=== PATIENT | female | born 1985 | race Caucasian/White ===

== ENCOUNTER → 2017-08-24 18:41 | Outpatient (CLI) | payer OTHER, MEDICAID, SELFPAY ==
--- NOTE | 2017-08-24 | DI.MRI.S_ITS ---
PROCEDURE: MR KNEE LT WO CON INDICATIONS: INTERNAL DERANGEMENT OF LEFT KNEE TECHNIQUE: Noncontrast sagittal PD fast spin echo and T2 fast spin echo with fat saturation, sagittal 3-D FLASH with fat saturation; coronal T1 spin echo and PD fast spin echo with fat saturation, and axial PD fast spin echo with fat saturation through the knee. COMPARISON: None. FINDINGS: Image quality: Excellent. Menisci: The medial and lateral menisci demonstrate normal morphology and internal signal. The meniscal root ligaments appear intact. Cruciate ligaments: The anterior and posterior cruciate ligaments appear intact. Medial structures: The medial collateral ligament appears intact but demonstrates mild edema within and immediately adjacent, extending into the medial patellar retinaculum. The posterior oblique ligament, semimembranosus tendon insertions, oblique popliteal ligament, and meniscocapsular junction appear intact. Visualized portions of the pes anserinus tendons appear normal. No abnormal bursal fluid. Lateral structures: The lateral collateral ligament, long and short heads of the biceps femoris tendon appear intact. The popliteus tendon appears normal; the popliteofibular ligament appears intact. The posterosuperior and anteroinferior popliteomeniscal fascicles appear intact. The arcuate and fabellofibular ligaments appear intact, on either side of the lateral inferior geniculate artery. Iliotibial band appears normal. Anterior structures: The quadriceps and patellar tendons appear intact. Patellar alignment is normal. No femoral trochlear dysplasia or ventral trochlear prominence. No edema in the infrapatellar fat pad. Bones and cartilage: No bone marrow contusions or fractures. The cartilage of the medial and lateral femorotibial compartments, as well as the patellofemoral compartment, appears normal in thickness. Joint space: There is physiologic knee joint fluid. No Solano's cyst. Normal appearing synovial plicae are incidentally noted. IMPRESSION: No meniscal tear is found, no bone bruising, no internal ligamentous injury is seen. There is mild edema within and immediately adjacent to the medial collateral ligament and extending to a mild degree into the immediate adjacent medial patellar retinaculum. Disruption of the structures is not found. No joint effusion or intra-articular loose body. Dictated by: Sachin Lo M.D. on 08/27/2017 at 10:49 Approved by: Sachin Lo M.D. on 08/27/2017 at 10:51
== END ==
PROVIDERS: PCP Physician Assistant Medical; Visit Provider Orthopaedic Surgery
DX: M23.92 Unspecified internal derangement of left knee (principal)
CPT/HCPCS: 73721

== ENCOUNTER 2017-11-20 08:17 | Outpatient (CLI) | payer OTHER, MEDICAID, SELFPAY ==
[2017-11-20] VITALS (11 sets, daily range): BP systolic 95–123; BP diastolic 54–78; PULSE 46–86; RESP 16–20; TEMP 36.7; O2SAT 96–100
--- NOTE | 2017-11-20 08:19 | DI.RAD.S_ITS ---
PROCEDURE: PAIN L/S TRANSFORAMINAL INJECT INDICATIONS: Spondylosis without myelopathy or radiculopathy FINDINGS: Fluoroscopic spot filming was performed to verify placement of spinal needles at the L5-S1 level(s), as labeled on the films. Appropriate location(s) of the needle tip(s) was confirmed by injection of iodinated contrast. IMPRESSION: Successful L5-S1 localization. Dictated by: Sachin Lo M.D. on 11/20/2017 at 13:16 Approved by: Sachin Lo M.D. on 11/20/2017 at 13:18
[2017-11-20] MEDS: MIDAZOLAM 5 MG/5 ML VIAL IV (09:10)
[2017-11-20] MEDS: BUPIVACAINE 0.25% (PF) VIAL 2 ML INJ (09:16)
[2017-11-20] MEDS: IOPAMIDOL 15 ML VIAL 3 ML INJ (09:16)
[2017-11-20] MEDS: methylPREDNISolone acetate 80 MG/ML VIAL INJ (09:17)
[2017-11-20] MEDS: DEXAMETHASONE 10 MG/ML VIAL 20 MG INJ (09:17)
--- NOTE | 2017-11-20 09:20 | P.PCN_ITS ---
Procedures Date/Time Date of procedure: 11/20/17 Time of procedure: 09:07 General Procedure description: PROVIDER: Otto Valle DO Operative Note PREOP DIAGNOSIS 1. HNP WITH RADICULAR FEATURES, 2. MULTILEVEL CENTRAL STENOSIS, POST OP DIAGNOSIS 1. HNP WITH RADICULAR FEATURES, 2. MULTILEVEL CENTRAL STENOSIS, PROCEDURES 1. FLUORSCOPICALLY GUIDED CONTRAST CONTROLLED INTERLAMINAR EPIDURAL STEROID INJECTION - L5/S1 PHYSICIAN: Otto Valle DO INDICATIONS Sosa is referred by DANY Marcano for treatment of Bilateral Foraminal Stenosis L>R LE symptoms. FINDINGS Multilevel Central Spinal Stenosis with Nerve Root Compression DESCRIPTION OF PROCEDURE Fluoroscopically guided, contrast-controlled L5/S1 translaminar epidural steroid injection. Following denial of allergy and review of potential side effects and complications, including, but not necessarily limited to, infection, allergic reaction, local tissue breakdown, temporary as well as permanent nerve injury, paralysis, stroke and possible , the patient indicated that the patient understood and agreed to proceed. An informed consent document was signed by the patient, witnessed by a nurse, and placed in the patient's chart. Additionally, other treatment options including modalities, medications, and physical therapy were reviewed with the patient. After review of previous anaesthesic history and IV conscious sedation the patient was deemed safe to proceed with todays procedure with IV conscious sedation as ASA class II designation. Safety time-out was performed to confirm patient ID, procedure to be performed and site of procedure. IV sedation was accomplished with a combination of 4mg of Versed administered by the RN after DO order, titrated to patient comfort during the course of the procedure while the patient remained responsive to all verbal commands. In the prone position, following sterile prep and drape of the lumbar region, the L5/S1 translaminar space was identified fluoroscopically. The skin was anesthetized via a 25-gauge, 1.5-inch needle with 1% lidocaine solution. At this point, a 22-gauge short bevel spinal needle was atraumatically introduced and advanced under fluoroscopic guidance into the region of the L5/S1 translaminar space. Depth was confirmed on lateral view. Radiological data, including multiple fluoroscopic views of the lumbar spine, reveal a spinal needle at the L5/S1 translaminar space. Lateral views then show placement of the needle in the epidural space. Subsequent views show contrast material flowing superiorly and inferiorly in the epidural space. No vascular or intrathecal uptake is observed. At this point, using loss of resistance technique with saline and air, the epidural space was entered. This was confirmed following negative aspiration with injection of approximately 1.5 cc of Isovue 200, showing excellent epidural flow without vascular or intrathecal uptake. At this point, 1 cc of 1 % lidocaine solution combined with 3 cc or 20 mg of dexamethasone and 80mg Depo medrol was injected without incident. The patent tolerated the procedure without signs of symptoms of complications prior to transfer to the recovery area for further monitoring. The patient was then transferred to the recovery area where they were observed for an appropriate period of time after the injection. The patient reported a VAS score of 6 prior to the procedure and a post-procedure VAS of 0. Total Fluoroscopy Time: 11.8 seconds Total Conscious Sedation Time: 24min POST OP INSTRUCTIONS The patient was provided a Pain Log to continue to record their response to the target-specific procedure prior to follow-up visit with their referring physician. Additionally, specific post-injection care instructions and a contact number to our office were provided if concerns arise regarding possible complications associated with the procedure are suspected. Otto Valle DO
--- NOTE | 2017-11-21 14:15 | PC.NURSE ---
FOLLOW UP PHONE CALL MADE. LEFT MSG WITH OFFICE # FOR QUESTIONS OR CONCERNS.
== END 2017-11-20 09:52 ==
PROVIDERS: PCP Physician Assistant Medical; Visit Provider Physical Medicine & Rehabilitation
DX: M51.17 Intervertebral disc disorders with radiculopathy, lumbosacral region (principal); M48.07 Spinal stenosis, lumbosacral region; M43.16 Spondylolisthesis, lumbar region
CPT/HCPCS: 64483; 99152; J1040; J1100; J2250

== ENCOUNTER 2017-11-21 15:20 | Emergency (ER) | payer OTHER, MEDICAID, SELFPAY ==
[2017-11-21 15:26] VITALS: BP 123/80; PULSE 65; RESP 20; TEMP 37.4; O2SAT 100; BMI 20.3
--- NOTE | 2017-11-21 17:45 | PC.NURSE ---
called pts name in waiting room pt no longer in waiting room. provider and electrical discharge machine operator aware.
== END 2017-11-21 18:33 | disposition left against medical advice (07) ==
PROVIDERS: Emergency Provider Emergency Medicine; PCP Physician Assistant Medical
DX: R10.9 Unspecified abdominal pain (principal)
CPT/HCPCS: 99281; 99282

== ENCOUNTER 2018-01-16 09:25 | Emergency (ER) | payer OTHER, MEDICAID, SELFPAY ==
[2018-01-16 09:57] VITALS: BP 131/87; PULSE 65; RESP 16; TEMP 37.1; O2SAT 97; BMI 20.5
== END 2018-01-16 10:49 | disposition left against medical advice (07) ==
PROVIDERS: PCP Physician Assistant Medical
DX: R10.9 Unspecified abdominal pain (principal)
CPT/HCPCS: 99281; 99282

== ENCOUNTER 2018-01-30 09:01 | Outpatient (CLI) | payer OTHER, MEDICAID, SELFPAY ==
[2018-01-30] VITALS (8 sets, daily range): BP systolic 96–117; BP diastolic 62–80; PULSE 67–81; RESP 16–18; O2SAT 96–100
--- NOTE | 2018-01-30 09:04 | DI.RAD.S_ITS ---
PROCEDURE: PAIN L/SI FACET INJ/BLK 1STL INDICATIONS: Lumbosacral spondylosis FINDINGS: Fluoroscopic spot filming was performed to verify placement of spinal needles at the L4-5 and L5-S1 right-sided facet region level(s), as labeled on the films. Appropriate location(s) of the needle tip(s) was confirmed by injection of iodinated contrast. IMPRESSION: Successful right facet margin needle tip localization or epidural steroid injection, L4-5 and L5-S1. Dictated by: Sachin Lo M.D. on 01/30/2018 at 13:02 Approved by: Sachin Lo M.D. on 01/30/2018 at 13:03
[2018-01-30] MEDS: MIDAZOLAM 5 MG/5 ML VIAL IV (09:55)
[2018-01-30] MEDS: IOPAMIDOL 15 ML VIAL 3 ML INJ (10:03)
[2018-01-30] MEDS: BUPIVACAINE 0.5% (PF) VIAL 2 ML INJ (10:04)
[2018-01-30] MEDS: BETAMETHASONE 30 MG/5 ML MDV 12 MG INJ (10:04)
--- NOTE | 2018-01-30 10:10 | PC.NURSE ---
pt being transported to post proc room in stable condition
--- NOTE | 2018-01-30 10:13 | P.PCN_ITS ---
Procedures Date/Time Date of procedure: 01/30/18 Time of procedure: 10:10 General Procedure description: PREOP DIAGNOSIS 1. FACET ARTHROPATHY, 2. AXIAL LBP, 3. MULTILEVEL DDD, POST OP DIAGNOSIS 1. FACET ARTHROPATHY, 2. AXIAL LBP, 3. MULTILEVEL DDD, PROCEDURES 1. FLUORSCOPICALLY GUIDED CONTRAST CONTROLLED FACET JOINT INJECTIONS RIGHT L4/5 , L5/S1 SURGEON: Otto Valle, DO INDICATIONS Sosa is referred by Dr. Marcano for treatment of Axial LBP FINDINGS Multilevel Facet Arthropathy with Clinically significant axial LBP DESCRIPTION OF PROCEDURE Fluoroscopically guided, contrast-controlled right L4/5, L5/S1 facet joint injections. Following denial of allergy and review of potential side effects and complications, including, but not necessarily limited to, infection, allergic reaction, local tissue breakdown, stroke, temporary or permanent nerve injury, paralysis, and possible , the patient indicated that the patient understood and agreed to proceed. An informed consent document was signed by the patient, witnessed by a nurse, and placed in the patient's chart. Additionally, other treatment options including medications, modalities, and physical therapy were reviewed with the patient. After review of previous anaesthesic history and IV conscious sedation the patient was deemed safe to proceed with todays procedure with IV conscious sedation as ASA class II designation. Safety time-out was performed to confirm patient ID, procedure to be performed and site of procedure. IV sedation was accomplished with a combination of 4mg was administered by the RN after DO order , titrated to patient comfort during the course of the procedure while the patient remained responsive to all verbal commands. In the prone position, following sterile prep and drape of the lumbar region, the posterior aspect of the right L4/5, L5/S1 facet joints were identified fluoroscopically. The skin was anesthetized via a 25-gauge 1.5-inch needle with 1% lidocaine solution into the corresponding facet joints. At this point, a 22-gauge 3.5-inch spinal needle was atraumatically introduced and advanced under fluoroscopic guidance into the corresponding facet joints. Following negative aspiration, injections of approximately 0.2-cc of Isovue 200 confirmed interarticular placement without vascular uptake. Radiological data, including multiple fluoroscopic views of the lumbosacral spine, reveal a spinal needle at the right L4/5, L5/S1 facet joints. Subsequent views show flow of contrast material both superiorly and inferiorly within the joint space without vascular or intrathecal uptake. At this point, a total of 0.5 cc including a mixture of 0.25cc Marcaine and 0.25cc betamethasone was injected without complication into each of the corresponding facet joints. The procedure tolerated the procedure well without signs or symptoms of complications prior to transfer to the recovery area continued monitoring without incident. The patient was then transferred to the recovery area where they were observed for an appropriate period of time after the injection. The patient reported a VAS score of 7 prior to the procedure and a post-procedure VAS of 0. Total Fluoroscopy Time: 12.7 seconds Total Conscious Sedation Time: 24min POST OP INSTRUCTIONS The patient was provided a Pain Log to continue to record their response to the target-specific procedure prior to follow-up visit with their referring physician. Additionally, specific post-injection care instructions and a contact number to our office were provided if concerns arise regarding possible complications associated with the procedure are suspected. Otto Valle, Complications: none
--- NOTE | 2018-01-30 11:02 | PC.NURSE ---
received pt from Annamarie Barnes via wheelchair. pt alert and able to move from w/c to chair. pt stable. resumed monitoring.
== END 2018-01-30 10:35 ==
LOC: RAD 09:03
PROVIDERS: PCP Physician Assistant Medical; Visit Provider Physical Medicine & Rehabilitation
DX: M47.26 Other spondylosis with radiculopathy, lumbar region (principal); M47.27 Other spondylosis with radiculopathy, lumbosacral region; M43.16 Spondylolisthesis, lumbar region; M43.17 Spondylolisthesis, lumbosacral region; M51.16 Intervertebral disc disorders with radiculopathy, lumbar region; M48.061 Spinal stenosis, lumbar region without neurogenic claudication; M54.5 Low back pain
CPT/HCPCS: 64493; 64494; 99152; J0702; J2250

== ENCOUNTER 2018-05-17 06:54 | Day surgery (SDC) | payer OTHER, MEDICAID, SELFPAY ==
[2018-05-17] VITALS (16 sets, daily range): BP systolic 99–146; BP diastolic 62–90; PULSE 65–103; RESP 12–24; TEMP 36.2–37.2; O2SAT 96–100; BMI 19.7
--- NOTE | 2018-05-17 | PATH_ITS ---
[facility] Accession Number: [id number] . 01 Material submitted: . PART A: UTERUS AND BILATERAL FALLOPIAN TUBES PART B: APPENDIX . 02 Diagnosis: A. Uterus And Bilateral Fallopian Tubes (Laparascopic Supracervical Hysterectomy With Bilateral Salpingectomy, morecellated specimen (Weight 39 Grams): Fragments of inactive endometrium and smooth muscle, please see comment. Uterine serosa with no significant histomorphologic abnormality. Fallopian tubes x2 with no significant histomorphologic abnormality. . B. Appendix, Laparscopic Appendectomy: Appendix with no diagnostic abnormality. BFI/05/23/2018 . 02 Comment: A. The fragments of smooth muscle in this hysterectomy specimen may represent myometrium or a leiomyoma. Clinical correlation is recommended. There is no evidence of atypia or malignancy. . 02 Electronically signed: . Mila Crain MD, Pathologist NPI- [id number] . 01 Gross description: . A. A.Received in formalin, labeled labeled uterus, bilateral fallopian tubes, is a morcellated uterus (39 g, 7.5 x 7.2 x 2.5 cm in aggregate) and two detached fimbriated fallopian tubes (tube #1-length-6.2 cm, diameter-0.4 cm; tube #2-length-7.2 cm, diameter-0.3 cm). The ovaries are absent. The tissue cannot be oriented, and the endometrium and myometrium cannot be grossly measured. The uterine parenchyma is casillas and unremarkable. The serosa is casillas, smooth, and shiny. The fallopian tubes have bryant-purple, smooth, shiny serosa and casillas unremarkable lumens. Section code: (A1-A4) uterine parenchyma, liability claims representative; (A5) fallopian tube #1, liability claims representative serial sections; (A6) fimbria #1, bivalved, entirely submitted; (A7) fallopian tube #2, liability claims representative serial sections; (A8) fimbria #2, bivalved, entirely submitted. B. Received in formalin, labeled appendix, is an intact appendix (length-5.1 cm, diameter-0.6 cm) with casillas-pink, smooth, shiny serosa, attached mesoappendix (up to 2.2 cm in depth), and a stapled resection margin. The lumen contains pale casillas, solid, soft material. The wall is up to 0.2 cm thick. No nodules, masses, or lesions are identified. The resection margin is inked black. Section code: (B1) resection margin en face and five additional serial sections; (B2) bivalved tip, entirely submitted. ([id number]) /FRR . 02 Pathologist provided ICD-10: N94.6 . 02 CPT . 956473, 26614 Performed at: 01 [facility] [address] [id number] MD Amos Holbrook MD Phone: [phone] Performed at: 02 [facility] [place] [id number] [place] [id number] MD Bailey Turner MD Phone: [phone]
[2018-05-17] MEDS: LACTATED RINGERS 1,000 ML 42 ML IV ×2 (07:32→10:10)
--- NOTE | 2018-05-17 07:40 | PM.PREOP ---
Pre-operative Note Interval Note History & Physical reviewed/Exam performed by Physician: Yes Changes to H&P: No
[2018-05-17] MEDS: MIDAZOLAM 2 MG/2 ML VIAL IV ×2 (07:45→07:51)
[2018-05-17] MEDS: CEFOTETAN 2 GM/50 ML PIGGYBACK IV (08:00)
--- NOTE | 2018-05-17 08:40 | SUR.OPER ---
Lithotomy on padded OR bed. [place] Pad Positioner under torso. Head on pillow, arms padded and tucked at sides. Legs secured in padded yellow fins stirrups.
[2018-05-17] MEDS: BUPIVACAINE 0.5% W/ EPI (PF) VIAL 30 ML INJ (08:47)
[2018-05-17] MEDS: ROPIVACAINE 0.2% PF 2 MG/ML 10ML AMP 10 ML INJ (09:11)
[2018-05-17] MEDS: fentaNYL 100 MCG/2 ML INJ 50 MCG IV ×2 (10:03→10:27)
[2018-05-17] MEDS: MEPERIDINE 50 MG/ML 25 MG IV (10:04)
[2018-05-17] MEDS: LORazepam 2 MG/ML SYRINGE 0.5 MG IV (10:08)
[2018-05-17] MEDS: ONDANSETRON 4 MG/2 ML INJ IV ×2 (10:08→19:14)
[2018-05-17] MEDS: METOCLOPRAMIDE 10 MG/2 ML INJ IV ×2 (10:30→20:21)
[2018-05-17] MEDS: SCOPOLAMINE 1 PATCH TOP (11:05)
[2018-05-17] MEDS: LORazepam 2 MG/ML SYRINGE 1 MG IV (11:05)
--- NOTE | 2018-05-17 11:40 | SUR.PHASEI ---
Pt transferred to room 208 via bed with all belongings. Report given to FELICIA Dimas prior to transfer. Pt's last vital signs stable. Nausea controlled and pt resting comfortably. FELICIA Dimas at bedside upon pt's arrival to room 208; assessed pt together including abdominal dressings. Will notify pt's , Brian, of pt's transfer to room 208.
--- NOTE | 2018-05-17 13:40 | PM.OP.1 ---
Operative Date/Time/Diagnoses Date of procedure: 05/17/18 Time of procedure: 09:40 Pre-op diagnosis: Chronic pelvic and right lower quadrant pain Post-op diagnosis: same Procedure & Clinicians Procedure: Laparoscopic appendectomy Same procedure as scheduled: Yes Indications: The relieve organ that can be source of chronic right lower quadrant pain. Hopefully this will alleviate the need for her to have multiple CT imaging which increases her room radiation exposure. Surgeon: Douglas Page Social Staff Worker: Joanna Ross Operative Notes Findings: Normal appearing appendix Closure Type: not applicable (See Dr. Ross's op report) Specimen(s): other (Appendix) Blood products transfused: none Procedure in detail: Using the ports already present the appendix was identified as a normal appearing appendix. The mesentery was divided without any significant blood loss. The base of the appendix was identified and looped placed at the base. It was cinched down. The appendix was divided distal to this and then placed in a bag for removal. Complications: none Condition: stable
--- NOTE | 2018-05-17 13:46 | P.OP_ITS ---
Operative Date/Time/Diagnoses Date of procedure: 05/17/18 Time of procedure: 09:40 Pre-op diagnosis: Chronic pelvic and right lower quadrant pain Post-op diagnosis: same Procedure & Clinicians Procedure: Laparoscopic appendectomy Same procedure as scheduled: Yes Indications: The relieve organ that can be source of chronic right lower quadran t pain. Hopefully this will alleviate the need for her to have multiple CT imaging which increases her room radiation exposure. Surgeon: Douglas Page Solar Energy Installation Manager: Joanna Ross Operative Notes Findings: Normal appearing appendix Closure Type: not applicable (See Dr. Ross's op report) Specimen(s): other (Appendix) Blood products transfused: none Procedure in detail: Using the ports already present the appendix was identified as a normal appearing appendix. The mesentery was divided without any significant blood loss. The base of the appendix was identified and looped placed at the base. It was cinched down. The appendix was divided distal to this and then placed in a bag for removal. Complications: none Condition: stable
[2018-05-17] MEDS: LACTATED RINGERS 1,000 ML 100 ML IV ×2 (14:13→23:41)
--- NOTE | 2018-05-17 14:55 | PC.NURSE ---
pt to room at 1150. somulent, RR 20. scopolomine patch on. VSS
[2018-05-17] MEDS: HYDROCODONE/ACET 5/325 TABLET 2 TAB PO ×2 (15:36→20:25)
[2018-05-17] MEDS: KETOROLAC 30 MG/ML VIAL IV ×2 (18:05→23:40)
--- NOTE | 2018-05-17 21:33 | PC.NURSE ---
Pt A&Ox3. 99%RA. LS: clear. pt had some nausea and emesis 100cc. administered zofran and reglan per orders. pt rates her pain 8/10 with movement. medicated with toradol and norco 2 tabs. call light in reach. bed alarm active.
[2018-05-18] MEDS: ONDANSETRON 4 MG/2 ML INJ IV (03:10)
[2018-05-18] MEDS: HYDROCODONE/ACET 5/325 TABLET 2 TAB PO (03:59)
[2018-05-18 05:25] VITALS: BP 110/71; PULSE 93; RESP 20; TEMP 37.5; O2SAT 96
[2018-05-18] MEDS: METOCLOPRAMIDE 10 MG/2 ML INJ IV (05:28)
[2018-05-18] MEDS: KETOROLAC 30 MG/ML VIAL IV (06:12)
--- NOTE | 2018-05-18 06:28 | PC.NURSE ---
0600 RESERVOIR ENGINEERING MANAGER note: Walked in and found a puddle of urine around patient's bed. Patient had been holding catheter bag during shift. Alerted RN. Had 350mL out of urine, plus whatever was on the floor.
[2018-05-18 06:50] LABS: Add Manual Diff / Slide Review NO; Basophils Absolute Auto 0 /uL (0-100); Basophils Percent Auto 0.2 % (0-2); Eosinophils Absolute Auto 0 /uL (0-450); Hematocrit 31.1 % (36-46); Hemoglobin 10.4 g/dL (12.0-16.0); Lymphocytes Absolute Auto 1000 /uL (1100-4500); Lymphocytes Percent Auto 4.8 % (25-40); Mean Corpuscular HGB Conc 33.5 % (30-36); Mean Corpuscular Hemoglobin 29.6 PG (26-34); Mean Corpuscular Volume 88.3 fL (80-100); Monocytes Absolute Auto 800 /uL (0-900); Monocytes Percent Auto 4.1 % (3-14); Neutrophils Absolute Auto 18300 /uL (1500-7000); Neutrophils Percent Auto 90.9 % (50-75); Platelet Count 263 X10^3/uL (150-400); Red Blood Cell Count 3.52 X10^6/uL (4.0-5.2); Red Cell Distribution Width 12.1 % (11.6-14.8); White Blood Cell Count 20.2 X10^3/uL (4.5-11.0)
[2018-05-18] MEDS: MAG HYDROX/ALUM/SIMETH 30 ML UDC PO (08:48)
[2018-05-18] MEDS: DOCUSATE 250 MG CAPSULE PO (08:48)
--- NOTE | 2018-05-18 09:52 | PC.NURSE ---
Pt ready for discharge home with Spouse. She states she understands to restrict lifting, drink plenty of fluids to prevent constipation or dehydration, and reviewed the s/s of infection and when to call MD. Pt out via w/c by JAMESON to POV with Spouse and all belongings.
--- NOTE | 2018-05-20 06:29 | P.OP_ITS ---
Operative Date/Time/Diagnoses Date of procedure: 05/17/18 Time of procedure: 10:15 Pre-op diagnosis: Severe dysmenorrhea Persistent right lower quadrant pain Post-op diagnosis: same Procedure: Procedures Operation Date: 05/17/18 07:45 Actual Procedures Side Surgeon p Laparoscopic Supracervical hysterectomy w/Bilat salpingectomy Joanna Ross MD s Laparoscopic Appendectomy Douglas Page MD Indications: Severe dysmenorrhea Persistent right lower quadrant pain Surgeon: Joanna Ross Sushi Chef: Franklin Miller Anesthesia Type: General Operative Notes Findings: 6 week size uterus Normal tubes and over Normal liver and gallbladder Normal appendix Closure Type: primary Specimen(s): left tube, right tube, uterus and other (Appendix) Applied: catheter (Removed at the end of the case) Estimated blood loss (mL): 50 Blood products transfused: none Procedure in detail: The patient was taken to the operating room where she was placed in the dorsal supine position. After adequate general endotracheal anesthesia was achieved, she was placed in the dorsal lithotomy position, and prepped and draped in the usual sterile fashion. A timeout was performed. A bivalve speculum was placed into the vagina and the anterior lip of the cervix grasped with a single-tooth tenaculum. The cervical os was sequentially dilated until the ZUMI uterine manipulator could pass easily into the endometrial cavity. The single-tooth tenaculum was removed from the anterior lip of the cervix, and the bivalve speculum was removed from the vagina. Attention was then turned to the abdomen where 6 mL of half percent Marcaine with epinephrine were injected in the umbilical fold. A 5 mm incision was made. The Verhees needle was placed into the peritoneal cavity, and its placement confirmed by aspiration and drop test. The abdominal cavity was insufflated with 2.8 L of CO2. The Verhees needle was removed. A 5 mm trocar was placed without difficulty. 2 other incisions were made midway between the pubic symphysis and umbilicus after 5 mL of half percent Marcaine with epinephrine were injected. These were 5 mm incisions. Two 5 mm trochars were placed under direct visualization. The right tube was grasped with an atraumatic grasper. Using the plasma kinetic with settings of 40 W the mesosalpinx was cauterized and cut all the way down to the cornua of the uterus. The cornua of the uterus was then grasped with an atraumatic grasper. The utero-ovarian ligaments were cauterized and cut. The round ligament and broad ligament was cauterized and cut with plasma kinetic. Hemostasis was achieved. The bladder flap was created using the plasma kinetic with cautery and cut penitentiary across. The uterine arteries on the right side were extensively cauterized with plasma kinetic. All of this was repeated on the left side. The remainder of the bladder flap was created using the plasma kinetic, and the bladder taken down off the lower uterine segment and cervix. Using the Endoloop, the cervix was amputated from the uterus 2 cm above the uterosacral ligaments, after the ZUMI uterine manipulator was removed from the uterus. There was a small amount of bleeding noted from the posterior and right edge of the cervix, and this was cauterized for hemostasis. The endocervical canal was extensively cauterized. A sponge stick was placed into the vagina. 6 mL of half percent Marcaine with epinephrine were injected above the pubic symphysis. A 12 mm trocar was placed. The appendectomy was then performed by Dr. Page and is dictated as a separate note. The 12 mm suprapubic trocar was removed. An Endobag was placed through the suprapubic incision and the uterus, tubes, and appendix were placed into the Endobag. The Alexander was placed into the endobag. The uterus was hand morcellated in approxim ately 5 pieces. The appendix was removed from the endobag. The Endobag was removed from the peritoneal cavity as well as the Alexander. The pelvis was copiously irrigated with warm normal saline. No bleeding was noted. 20 cc of 0.2% ropivacaine were placed over the pedicles. The pedicles were examined and were found to be hemostatic. The instruments were removed from the abdomen. The CO2 was allowed to escape. The suprapubic incision was closed on the fascia with 0 Vicryl. All of the incisions were closed with 4-0 undyed Vicryl in a subcuticular fashion. The moistened sponge stick was removed from the vagina. Sponge, lap, and instrument counts were correct x-2. The patient tolerated the procedure well, was taken to PACU in stable condition. Complications: none Post-operative Condition: stable Disposition: PACU Plan for aftercare: To acute care after recovery
--- NOTE | 2018-05-20 06:37 | PM.DS.1 ---
History of Present Illness Date Patient Seen: 05/18/18 Time Patient Seen: 07:30 Chief complaint: [id number] [facility] W/JOSEFA SALP; [id number] LAP APPY *OPB* Narrative: Patient is a 32-year-old postop day # 1 status post laparoscopic supracervical hysterectomy, bilateral salpingectomy, and appendectomy. She anticipated going home yesterday, but had postoperative nausea and vomiting and stayed overnight. Nausea and vomiting have resolved. Pain is well controlled with oral pain medications. She has been able to void without the catheter. Discharge Providers Date of admission: 05/17/2017 Primary care physician: Chico Marcano Discharge provider: Joanna Ross MD Discharge Date: 05/18/18 Summary Discharge Diagnosis: Severe dysmenorrhea Persistent right lower quadrant pain Postoperative nausea and vomiting Status post laparoscopic supracervical hysterectomy, bilateral salpingectomy, and appendectomy Hospital Course: Patient presented on 05/17/2018 for a scheduled laparoscopic supracervical hysterectomy, bilateral salpingectomy, and appendectomy. She anticipated going home on the same day of surgery, but had postoperative nausea and vomiting which required staying overnight. She has voided without the catheter. She has tolerated clear liquids. Pain is well controlled with oral pain medications. Status at Discharge Functional status at discharge: independent ambulation Overall status at discharge: patient is progressing back to baseline Time Spent with Patient Less than 30 minutes Exam Vital Signs (past 8 hours): Oxygen Delivery Method Room Air Oxygen Flow Rate 0 Narrative Exam Narrative: Generally: Patient lying in bed, no acute distress Lungs: Clear to auscultation bilaterally Cardiovascular: Regular rate and rhythm Abdomen: Soft, good bowel sounds Incisions: Clean dry and intact with op sites Extremities: Negative Homans, no edema Objective Labs Result Diagrams: 05/18/18 06:15 Discharge Plan Discharge Plan Patient Disposition: Home Discharge comment: Call with fever, chills, redness or drainage around the incisions Discharge Med Rec/Prescriptions Prescriptions: New hydrocodone-acetaminophen [[place]] 5-325 mg tablet 1 tab PO Q4-6H PRN (Reason: post op pain) Qty: 30 RF: 0 ondansetron 4 mg tablet,disintegrating 4 mg PO QID PRN (Reason: nausea and vomiting) Qty: 14 RF: 2 Continued Ondansetron (Zofran Odt) tablet 4 mg PO PRN PRN (Reason: Nausea) Qty: 0 RF: 0 medroxyprogesterone [Depo-Provera] 150 mg/mL syringe 150 mg IM [id number] RF: 0 alprazolam [Xanax] 0.25 mg tablet 0.25 mg PO BID-TID PRN (Reason: anxiety) Qty: 10 RF: 0 ranitidine HCl [Acid Administrative Law Judge (ranitidine)] 150 mg Tablet 150 mg PO PRN PRN (Reason: Acid Reflux) RF: 0 albuterol sulfate [ProAir HFA] 90 mcg/actuation HFA aerosol inhaler 1 puff INHALATION Q6H PRN (Reason: Adequate Ventilation) RF: 0 Follow up/Referrals: Joanna Ross MD [Physician] - 2 Weeks Discharge Orders: Discharge (Order); Ordered 05/18/18 Ordered By: Joanna Ross Provider Discharge Instructions Diet: Diet as Tolerated Activity: No intercourse Skin/Wound/Dressing Care Report to your healthcare provider any signs of infection, such as:: chills, fever, increased pain, unusual drainage and unusual redness Dressing: Remove outer plastic dressings and guaze after a shower tomorrow Visit Report/Discharge Packet Instructions: DI for an Appendectomy, DI for Hysterectomy, DI for Laparoscopy Stand Alone Forms: Surgery Discharge Discharge Data Primary Care Provider: Chico Marcano Attending Provider: Joanna Ross Discharges patient from system. Discharge Date/Time: 05/18/18 09:53 Quality VTE Deep Vein Thrombosis/Pulmonary Embolism Present on Admission: No
--- NOTE | 2018-05-20 06:42 | P.DS_ITS ---
History of Present Illness Date Patient Seen: 05/18/18 Time Patient Seen: 07:30 Chief complaint: [id number] [facility] W/JOSEFA SALP; [id number] LAP APPY *OPB* Narrative: Patient is a 32-year-old postop day # 1 status post laparoscopic supracervical hysterectomy, bilateral salpingectomy, and appendectomy. She anticipated going home yesterday, but had postoperative nausea and vomiting and stayed overnight. Nausea and vomiting have resolved. Pain is well controlled with oral pain medications. She has been able to void without the catheter. Discharge Providers Date of admission: 05/17/2017 Primary care physician: Chico Marcano Discharge provider: Joanna Ross MD Discharge Date: 05/18/18 Summary Discharge Diagnosis: Severe dysmenorrhea Persistent right lower quadrant pain Postoperative nausea and vomiting Status post laparoscopic supracervical hysterectomy, bilateral salpingectomy, and appendectomy Hospital Course: Patient presented on 05/17/2018 for a scheduled laparoscopic supracervical hysterectomy, bilateral salpingectomy, and appendectomy. She anticipated going home on the same day of surgery, but had postoperative nausea and vomiting which required staying overnight. She has voided without the catheter. She has tolerated clear liquids. Pain is well controlled with oral pain medications. Status at Discharge Functional status at discharge: independent ambulation Overall status at discharge: patient is progressing back to baseline Time Spent with Patient Less than 30 minutes Exam Vital Signs (past 8 hours): Oxygen Delivery Method Room Air Oxygen Flow Rate 0 Narrative Exam Narrative: Generally: Patient lying in bed, no acute distress Lungs: Clear to auscultation bilaterally Cardiovascular: Regular rate and rhythm Abdomen: Soft, good bowel sounds Incisions: Clean dry and intact with op sites Extremities: Negative Homans, no edema Objective Labs Result Diagrams: 05/18/18 06:15 Discharge Plan Discharge Plan Patient Disposition: Home Discharge comment: Call with fever, chills, redness or drainage around the incisions Discharge Med Rec/Prescriptions Prescriptions: New hydrocodone-acetaminophen [[place]] 5-325 mg tablet 1 tab PO Q4-6H PRN (Reason: post op pain) Qty: 30 RF: 0 ondansetron 4 mg tablet,disintegrating 4 mg PO QID PRN (Reason: nausea and vomiting) Qty: 14 RF: 2 Continued Ondansetron (Zofran Odt) tablet 4 mg PO PRN PRN (Reason: Nausea) Qty: 0 RF: 0 medroxyprogesterone [Depo-Provera] 150 mg/mL syringe 150 mg IM [id number] RF: 0 alprazolam [Xanax] 0.25 mg tablet 0.25 mg PO BID-TID PRN (Reason: anxiety) Qty: 10 RF: 0 ranitidine HCl [Acid [place] Hand (ranitidine)] 150 mg Tablet 150 mg PO PRN PRN (Reason: Acid Reflux) RF: 0 albuterol sulfate [ProAir HFA] 90 mcg/actuation HFA aerosol inhaler 1 puff INHALATION Q6H PRN (Reason: Adequate Ventilation) RF: 0 Follow up/Referrals: Joanna Ross MD [Physician] - 2 Weeks Discharge Orders: Discharge (Order); Ordered 05/18/18 Ordered By: Joanna Ross Provider Discharge Instructions Diet: Diet as Tolerated Activity: No intercourse Skin/Wound/Dressing Care Report to your healthcare provider any signs of infection, such as:: chills, fever, increased pain, unusual drainage and unusual redness Dressing: Remove outer plastic dressings and guaze after a shower tomorrow Visit Report/Discharge Packet Instructions: DI for an Appendectomy, DI for Hysterectomy, DI for Laparoscopy Stand Alone Forms: Surgery Discharge Discharge Data Primary Care Provider: Chico Marcano Attending Provider: Joanna Ross Discharges patient from system. Discharge Date/Time: 05/18/18 09:53 Quality VTE Deep Vein Thrombosis/Pulmonary Embolism Present on Admission: No
== END 2018-05-18 09:53 | disposition home or self-care (01) ==
LOC: OR 06:54 → AC 06:55
PROVIDERS: Specialist; PCP Physician Assistant Medical; Visit Provider Obstetrics & Gynecology
PROC: 0UT94ZL Resection of Uterus, Supracervical, Percutaneous Endoscopic Approach (ICD-10-PCS; CPT 58542; principal; 2018-05-17 07:45)
PROC: 0DTJ4ZZ Resection of Appendix, Percutaneous Endoscopic Approach (ICD-10-PCS; CPT 44970; 2018-05-17 07:45)
DX: N94.6 Dysmenorrhea, unspecified (principal); R10.2 Pelvic and perineal pain; R10.31 Right lower quadrant pain
CPT/HCPCS: 58542; 44979; 44970; 85025; 88302; 88305; J0360; J1100; J1885; J2060; J2175; J2250; J2405; J2704; J2765; J2795; J3010

== ENCOUNTER 2018-05-24 17:44 | Emergency (ER) | payer OTHER, MEDICAID, SELFPAY ==
[2018-05-17 14:46] VITALS: BMI 19.7
[2018-05-24 17:49] VITALS: BP 102/66; PULSE 68; RESP 18; TEMP 37.4; O2SAT 99; BMI 19.5
[2018-05-24 18:28] LABS: Bacteria Urine None Seen; RBC Urine None Seen (0-5/HPF)
--- NOTE | 2018-05-24 18:33 | ED_ITS ---
HPI - Abdominal Pain General Chief Complaint: Abdominal Pain Stated Complaint: pain in right side after surgery Time Seen by Provider: 05/24/18 18:33 Related Data Home Medications Medication Instructions Recorded Confirmed Ondansetron (Zofran Odt) 4 mg PO PRN PRN #0 08/18/10 05/18/18 albuterol sulfate HFA 90 1 puff INHALATION Q6H PRN 12/27/17 05/18/18 mcg/actuation aerosol inhaler medroxyprogesterone 150 mg/mL 150 mg IM [id number] 03/13/18 03/13/18 intramuscular syringe ranitidine HCl [Acid Correspondence Transcriber 150 mg PO PRN PRN 05/18/18 05/18/18 (ranitidine)] Previous Rx's Medication Instructions Recorded alprazolam 0.25 mg tablet 0.25 mg PO BID-TID PRN #10 tab 04/30/18 ondansetron 4 mg PO QID PRN #14 tab 05/18/18 hydrocodone 5 mg-acetaminophen 325 1 tab PO Q4-6H PRN #30 tab 05/21/18 mg tablet Allergies Allergy/AdvReac Type Severity Reaction Status Date / Time amoxicillin Allergy Intermediate Rash, Verified 05/24/18 17:48 throat was tingly azithromycin Allergy Intermediate Gastrointestinal Verified 05/24/18 17:48 Upset ciprofloxacin Allergy Intermediate Gastrointestinal Verified 05/24/18 17:48 Upset Penicillins Allergy Intermediate Rash Verified 05/24/18 17:48 hydromorphone Allergy Mild Flushing Verified 05/24/18 17:48 ibuprofen Allergy Mild Kidney Verified 05/24/18 17:48 infection Pertussis Vaccines Allergy Unknown Seizure Verified 05/24/18 17:48 [PERTUSSIS VACCINES] gluten AdvReac Mild Stomach Verified 05/24/18 17:48 pain, nausea, headache nickel AdvReac Mild Irritation/ Verified 05/24/18 17:48 redness PFSH Medical History Asthma (Acute) Surgical History H/O exploratory laparotomy (Acute) H/O left knee surgery (Acute) History of open heart surgery (Acute) History of surgery (Acute) Social History household members: spouse and children Smoking Status: Former smoker Social History household members: spouse and children Smoking Status: Former smoker Exam Initial Vital Signs Initial Vital Signs: Vital Signs Temperature 99.4 F 05/24/18 17:49 Pulse Rate 68 05/24/18 17:49 Respiratory Rate 18 05/24/18 17:49 Blood Pressure 102/66 05/24/18 17:49 Pulse Oximetry 99 05/24/18 17:49 Course Orders Ordered: ED Orders 05/24/18 17:55 Complete Blood Count AUTO DIFF Stat Comprehensive Metabolic Panel Stat Lipase Stat 05/24/18 18:15 Urine Microscopic Stat Vital Signs - 8 hr 05/24/18 17:49 Temperature 99.4 F Pulse Rate 68 Respiratory Rate 18 Blood Pressure 102/66 Pulse Oximetry 99 MDM - Abdominal Pain Lab Data Point of care testing: Urine Dip Bedside Urine Glucose Negative Bedside Urine Bilirubin - Negative Bedside Urine Ketone - Negative Urine Specific [place] 1.025 Bedside Urine Occult Blood - Negative Bedside Urine pH 6.0 Bedside Urine Protein +/- 15 Bedside Urine Urobilinogen +/- 1mg Bedside Urine Nitrite - Negative Bedside Urine Leukocytes - Negative Esterase Discharge Plan Departure Prescriptions: No Action Ondansetron (Zofran Odt) tablet 4 mg PO PRN PRN (Reason: Nausea) Qty: 0 RF: 0 hydrocodone-acetaminophen [[place]] 5-325 mg tablet 1 tab PO Q4-6H PRN (Reason: post op pain) Qty: 30 RF: 0 medroxyprogesterone [Depo-Provera] 150 mg/mL syringe 150 mg IM [id number] RF: 0 alprazolam [Xanax] 0.25 mg tablet 0.25 mg PO BID-TID PRN (Reason: anxiety) Qty: 10 RF: 0 ranitidine HCl [Acid Correspondence Transcriber (ranitidine)] 150 mg Tablet 150 mg PO PRN PRN (Reason: Acid Reflux) RF: 0 ondansetron 4 mg tablet,disintegrating 4 mg PO QID PRN (Reason: nausea and vomiting) Qty: 14 RF: 2 albuterol sulfate [ProAir HFA] 90 mcg/actuation HFA aerosol inhaler 1 puff INHALATION Q6H PRN (Reason: Adequate Ventilation) RF: 0
[2018-05-24 18:36] LABS: Culture Indicated Urine Cult Not Indicated; Mucus Urine 1+ (Negative); Squamous Epithelial Cell Urine 1-5 /HPF; WBC Urine 1-5/HPF (0-5/HPF)
[2018-05-24 18:50] LABS: Add Manual Diff / Slide Review NO; Basophils Absolute Auto 100 /uL (0-100); Basophils Percent Auto 0.6 % (0-2); Eosinophils Absolute Auto 300 /uL (0-450); Eosinophils Percent Auto 2.6 % (2-4); Hematocrit 33.4 % (36-46); Lymphocytes Absolute Auto 2700 /uL (1100-4500); Lymphocytes Percent Auto 23.8 % (25-40); Mean Corpuscular HGB Conc 33.1 % (30-36); Mean Corpuscular Hemoglobin 29.2 PG (26-34); Mean Corpuscular Volume 88.3 fL (80-100); Monocytes Absolute Auto 900 /uL (0-900); Monocytes Percent Auto 7.6 % (3-14); Neutrophils Absolute Auto 7400 /uL (1500-7000); Neutrophils Percent Auto 65.4 % (50-75); Platelet Count 455 X10^3/uL (150-400); Red Blood Cell Count 3.79 X10^6/uL (4.0-5.2); Red Cell Distribution Width 12.4 % (11.6-14.8); White Blood Cell Count 11.3 X10^3/uL (4.5-11.0)
[2018-05-24 19:10] LABS: Alanine Aminotransferase 33 IU/L (9-52); Albumin 3.9 g/dL (3.5-5.0); Albumin Globulin Ratio 1.2 (1.0-2.8); Alkaline Phosphatase 73 U/L (38-126); Aspartate Aminotransferase 20 IU/L (14-36); BUN Creatinine Ratio 14.3 (6-22); Bilirubin Total 0.2 mg/dL (0.2-1.3); Blood Urea Nitrogen 10 mg/dL (7-17); Calcium 8.8 mg/dL (8.4-10.2); Carbon Dioxide 31 mmol/L (22-32); Chloride 102 mmol/L (98-107); Estimated Glomerular Filt Rate > 60.0 mL/min (>60); Globulin 3.3 g/dL (1.7-4.1); Glucose 91 mg/dL (70-100); HEMOLYSIS < 15 (0-50); Lipase 36 U/L (23-300); Potassium 3.3 mmol/L (3.4-5.1); Sodium 141 mmol/L (137-145); Total Protein 7.2 g/dL (6.3-8.2)
[2018-05-24] MEDS: MORPHINE 4 MG/ML INJ IV (19:29)
[2018-05-24] MEDS: ONDANSETRON 4 MG/2 ML INJ IV (19:29)
[2018-05-24 19:30] LABS: Amylase 72 U/L (30-110)
[2018-05-24] MEDS: MORPHINE 5 MG/ML INJ 2 MG IV (20:15)
--- NOTE | 2018-05-24 20:36 | ED.ABDPAIN ---
HPI - Abdominal Pain <JO Xavier-BC - Last Filed: 05/24/18 22:07> General Chief Complaint: Abdominal Pain Stated Complaint: pain in right side after surgery Time Seen by Provider: 05/24/18 18:33 Source: patient and family Mode of arrival: ambulatory Limitations: no limitations History of Present Illness HPI narrative: Patient is a 32-year-old female nonsmoker who presents with her with the chief complaint postoperative pain. She had a laparoscopic hysterectomy done last week by Dr. Ross. She states she had right rib and right upper quadrant pain immediately postoperative and has been getting worse since. She denies any fevers nausea vomiting or diarrhea. She had a bowel movement today. She states her incisions look great. She has been using her Vicodin at home for pain. Related Data Home Medications Medication Instructions Recorded Confirmed Ondansetron (Zofran Odt) 4 mg PO PRN PRN #0 08/18/10 05/18/18 albuterol sulfate HFA 90 1 puff INHALATION Q6H PRN 12/27/17 05/18/18 mcg/actuation aerosol inhaler medroxyprogesterone 150 mg/mL 150 mg IM [id number] 03/13/18 03/13/18 intramuscular syringe ranitidine HCl [Acid Security Team Lead 150 mg PO PRN PRN 05/18/18 05/18/18 (ranitidine)] Previous Rx's Medication Instructions Recorded alprazolam 0.25 mg tablet 0.25 mg PO BID-TID PRN #10 tab 04/30/18 ondansetron 4 mg PO QID PRN #14 tab 05/18/18 hydrocodone 5 mg-acetaminophen 325 1 tab PO Q4-6H PRN #30 tab 05/21/18 mg tablet Allergies Allergy/AdvReac Type Severity Reaction Status Date / Time amoxicillin Allergy Intermediate Rash, Verified 05/24/18 17:48 throat was tingly azithromycin Allergy Intermediate Gastrointestinal Verified 05/24/18 17:48 Upset ciprofloxacin Allergy Intermediate Gastrointestinal Verified 05/24/18 17:48 Upset Penicillins Allergy Intermediate Rash Verified 05/24/18 17:48 hydromorphone Allergy Mild Flushing Verified 05/24/18 17:48 ibuprofen Allergy Mild Kidney Verified 05/24/18 17:48 infection Pertussis Vaccines Allergy Unknown Seizure Verified 05/24/18 17:48 [PERTUSSIS VACCINES] gluten AdvReac Mild Stomach Verified 05/24/18 17:48 pain, nausea, headache nickel AdvReac Mild Irritation/ Verified 05/24/18 17:48 redness Review of Systems <ERIK Xavier - Last Filed: 05/24/18 22:07> Review of Systems GENERAL: Denies chills, fatigue, malaise, fever, sweats. HEENT: Denies sinus pain, ear pain, sore throat, difficulty swallowing, dizziness. RESPIRATORY: Denies dyspnea, cough, wheezing, hemoptysis, sputum. CARDIOVASCULAR: Denies chest pain, palpitations, orthopnea, edema, GASTROINTESTINAL: See HPI : Denies dysuria, frequency, incontinence, hematuria, urinary retention. MUSCULOSKELETAL: denies weakness, joint pain, or bony pain SKIN: HPI NEUROLOGIC: Denies weakness, headache, numbness, change in speech, confusion, seizures, incoordination. PSYCHIATRIC: No concerning psychosocial issues. 12 point review of systems is negative except for those stated above PFSH <ERIK Xavier - Last Filed: 05/24/18 22:07> Medical History Asthma (Acute) Surgical History H/O exploratory laparotomy (Acute) H/O left knee surgery (Acute) History of open heart surgery (Acute) History of surgery (Acute) Social History household members: spouse and children Smoking Status: Former smoker Social History household members: spouse and children Smoking Status: Former smoker Exam <ERIK Xavier - Last Filed: 05/24/18 22:07> Narrative Exam Narrative: GENERAL: This is a well-nourished, well-developed patient, lying on stretcher HEAD: Atraumatic. Normocephalic. No temporal or scalp tenderness. EYES: Pupils equal round and reactive. Extraocular motions intact. No scleral icterus. No injection or drainage. ENT: Nose without bleeding, purulent drainage or septal hematoma. Throat without erythema, tonsillar hypertrophy or exudate. Uvula midline. Airway patent. NECK: Trachea midline. No JVD or lymphadenopathy. Supple, nontender, no meningeal signs. CARDIOVASCULAR: Regular rate and rhythm without murmurs, gallops, or rubs. RESPIRATORY: Clear to auscultation. Breath sounds equal bilaterally. No wheezes, rales, or rhonchi. No coughing. Pain to palpation right lower ribs. GASTROINTESTINAL: Abdomen soft, non-tender, nondistended. No hepato-splenomegaly, or palpable masses. No guarding. Active bowel sounds all 4 quadrants. Negative Banda sign. EXTREMITIES: No clubbing, cyanosis, or edema. No joint tenderness, effusion, or edema noted. BACK: Nontender without deformity or crepitance. No flank tenderness. NEURO: AOx3. SKIN: Four abdominal surgical incisions clean dry intact. No surrounding erythema. No discharge. Initial Vital Signs Initial Vital Signs: Vital Signs Temperature 99.4 F 05/24/18 17:49 Pulse Rate 68 05/24/18 17:49 Respiratory Rate 18 05/24/18 17:49 Blood Pressure 102/66 05/24/18 17:49 Pulse Oximetry 99 05/24/18 17:49 <Narendra Kee DO - Last Filed: 05/24/18 22:12> Initial Vital Signs Initial Vital Signs: Vital Signs Temperature 99.4 F 05/24/18 17:49 Pulse Rate 68 05/24/18 17:49 Respiratory Rate 18 05/24/18 17:49 Blood Pressure 102/66 05/24/18 17:49 Pulse Oximetry 99 05/24/18 17:49 Course <JO Xavier-BC - Last Filed: 05/24/18 22:07> Orders Ordered: ED Orders 05/24/18 18:15 Complete Blood Count AUTO DIFF Stat Urine Microscopic Stat 05/24/18 18:51 Comprehensive Metabolic Panel Stat Lipase Stat 05/24/18 18:53 Amylase Stat Discontinued Medications Morphine Sulfate (Morphine) 4 mg IV NOW ONE Stop: 05/24/18 19:01 Last Admin: 05/24/18 19:29 Dose: 4 mg Morphine Sulfate (Morphine Sulfate) 2 mg IV NOW ONE Stop: 05/24/18 20:01 Last Admin: 05/24/18 20:15 Dose: 2 mg Ondansetron HCl (Zofran) 4 mg IV NOW ONE Stop: 05/24/18 19:01 Last Admin: 05/24/18 19:29 Dose: 4 mg Potassium Chloride (Potassium Chloride) 40 meq PO NOW ONE Stop: 05/24/18 20:25 Last Admin: 05/24/18 21:00 Dose: 40 meq Vital Signs - 8 hr 05/24/18 17:49 05/24/18 21:05 Temperature 99.4 F Pulse Rate 68 65 Respiratory Rate 18 18 Blood Pressure 102/66 Blood Pressure [Left Arm] 114/87 Pulse Oximetry 99 98 <Narendra Kee DO - Last Filed: 05/24/18 22:12> Orders Ordered: ED Orders 05/24/18 18:15 Complete Blood Count AUTO DIFF Stat Urine Microscopic Stat 05/24/18 18:51 Comprehensive Metabolic Panel Stat Lipase Stat 05/24/18 18:53 Amylase Stat Discontinued Medications Morphine Sulfate (Morphine) 4 mg IV NOW ONE Stop: 05/24/18 19:01 Last Admin: 05/24/18 19:29 Dose: 4 mg Morphine Sulfate (Morphine Sulfate) 2 mg IV NOW ONE Stop: 05/24/18 20:01 Last Admin: 05/24/18 20:15 Dose: 2 mg Ondansetron HCl (Zofran) 4 mg IV NOW ONE Stop: 05/24/18 19:01 Last Admin: 05/24/18 19:29 Dose: 4 mg Potassium Chloride (Potassium Chloride) 40 meq PO NOW ONE Stop: 05/24/18 20:25 Last Admin: 05/24/18 21:00 Dose: 40 meq Vital Signs - 8 hr 05/24/18 17:49 05/24/18 21:05 Temperature 99.4 F Pulse Rate 68 65 Respiratory Rate 18 18 Blood Pressure 102/66 Blood Pressure [Left Arm] 114/87 Pulse Oximetry 99 98 MDM - Abdominal Pain <ERIK Xavier - Last Filed: 05/24/18 22:07> Lab Data Result diagrams: 05/24/18 18:15 05/24/18 18:51 Lab Results 05/24/18 05/24/18 05/24/18 Range/Units 18:15 18:15 18:51 WBC 11.3 H (4.5-11.0) X10^3/uL RBC 3.79 L (4.0-5.2) X10^6/uL Hgb 11.0 L (12.0-16.0) g/dL Hct 33.4 L (36-46) % MCV 88.3 (80-100) fL MCH 29.2 (26-34) PG MCHC 33.1 (30-36) % RDW 12.4 (11.6-14.8) % Plt Count 455 H (150-400) X10^3/uL Neut % (Auto) 65.4 (50-75) % Lymph % (Auto) 23.8 L (25-40) % [place] % (Auto) 7.6 (3-14) % Eos % (Auto) 2.6 (2-4) % Baso % (Auto) 0.6 (0-2) % Neut # (Auto) 7400 H (5199-2224) /uL Lymph # (Auto) 2700 (8166-5023) /uL [place] # (Auto) 900 (0-900) /uL Eos # (Auto) 300 (0-450) /uL Baso # (Auto) 100 (0-100) /uL Sodium 141 (137-145) mmol/L Potassium 3.3 L (3.4-5.1) mmol/L Chloride 102 (98-107) mmol/L Carbon Dioxide 31 (22-32) mmol/L BUN 10 (7-17) mg/dL Creatinine 0.70 (0.52-1.04) mg/dL Estimated GFR > 60.0 (>60) mL/min BUN/Creatinine Ratio 14.3 (6-22) Glucose 91 (70-100) mg/dL Calcium 8.8 (8.4-10.2) mg/dL Total Bilirubin 0.2 (0.2-1.3) mg/dL AST 20 (14-36) IU/L ALT 33 (9-52) IU/L Alkaline Phosphatase 73 (38-126) U/L Total Protein 7.2 (6.3-8.2) g/dL Albumin 3.9 (3.5-5.0) g/dL Globulin 3.3 (1.7-4.1) g/dL Albumin/Globulin Ratio 1.2 (1.0-2.8) Amylase (30-110) U/L Lipase 36 (23-300) U/L Urine RBC None seen (0-5/HPF) Urine WBC 1-5/hpf (0-5/HPF) Ur Squamous Epith Cells 1-5 /hpf Urine Bacteria None seen (None) Urine Mucus 1+ H (Negative) Ur Culture Indicated? Cult not indicated 05/24/18 Range/Units 18:53 WBC (4.5-11.0) X10^3/uL RBC (4.0-5.2) X10^6/uL Hgb (12.0-16.0) g/dL Hct (36-46) % MCV (80-100) fL MCH (26-34) PG MCHC (30-36) % RDW (11.6-14.8) % Plt Count (150-400) X10^3/uL Neut % (Auto) (50-75) % Lymph % (Auto) (25-40) % [place] % (Auto) (3-14) % Eos % (Auto) (2-4) % Baso % (Auto) (0-2) % Neut # (Auto) (5442-0771) /uL Lymph # (Auto) (1030-5583) /uL [place] # (Auto) (0-900) /uL Eos # (Auto) (0-450) /uL Baso # (Auto) (0-100) /uL Sodium (137-145) mmol/L Potassium (3.4-5.1) mmol/L Chloride (98-107) mmol/L Carbon Dioxide (22-32) mmol/L BUN (7-17) mg/dL Creatinine (0.52-1.04) mg/dL Estimated GFR (>60) mL/min BUN/Creatinine Ratio (6-22) Glucose (70-100) mg/dL Calcium (8.4-10.2) mg/dL Total Bilirubin (0.2-1.3) mg/dL AST (14-36) IU/L ALT (9-52) IU/L Alkaline Phosphatase (38-126) U/L Total Protein (6.3-8.2) g/dL Albumin (3.5-5.0) g/dL Globulin (1.7-4.1) g/dL Albumin/Globulin Ratio (1.0-2.8) Amylase 72 (30-110) U/L Lipase (23-300) U/L Urine RBC (0-5/HPF) Urine WBC (0-5/HPF) Ur Squamous Epith Cells Urine Bacteria (None) Urine Mucus (Negative) Ur Culture Indicated? Point of care testing: Urine Dip Bedside Urine Glucose Negative Bedside Urine Bilirubin - Negative Bedside Urine Ketone - Negative Urine Specific [place] 1.025 Bedside Urine Occult Blood - Negative Bedside Urine pH 6.0 Bedside Urine Protein +/- 15 Bedside Urine Urobilinogen +/- 1mg Bedside Urine Nitrite - Negative Bedside Urine Leukocytes - Negative Esterase MDM Narrative Medical decision making narrative: The patient is a 32-year-old female who presents with right lower rib pain 1 week after laparoscopic hysterectomy. Her white blood cell count is normalizing. She is not febrile. She is having bowel movements. I spoke with Dr. Khan is at this patient's pain is consistent with gas trapping. I discussed at length with the patient use of pain medication as well as warm packs to her shoulders as per Dr. Khan recommendation. I discussed following up with her primary care provider as well as Dr. Ross. Discussed return precautions of inability to keep down food or fluids, fever, acute concerns. Patient has been had no questions or concerns upon discharge. <Narendra Kee, DO - Last Filed: 05/24/18 22:12> Lab Data Lab Results 05/24/18 05/24/18 05/24/18 Range/Units 18:15 18:15 18:51 WBC 11.3 H (4.5-11.0) X10^3/uL RBC 3.79 L (4.0-5.2) X10^6/uL Hgb 11.0 L (12.0-16.0) g/dL Hct 33.4 L (36-46) % MCV 88.3 (80-100) fL MCH 29.2 (26-34) PG MCHC 33.1 (30-36) % RDW 12.4 (11.6-14.8) % Plt Count 455 H (150-400) X10^3/uL Neut % (Auto) 65.4 (50-75) % Lymph % (Auto) 23.8 L (25-40) % [place] % (Auto) 7.6 (3-14) % Eos % (Auto) 2.6 (2-4) % Baso % (Auto) 0.6 (0-2) % Neut # (Auto) 7400 H (6923-9448) /uL Lymph # (Auto) 2700 (6101-2749) /uL [place] # (Auto) 900 (0-900) /uL Eos # (Auto) 300 (0-450) /uL Baso # (Auto) 100 (0-100) /uL Sodium 141 (137-145) mmol/L Potassium 3.3 L (3.4-5.1) mmol/L Chloride 102 (98-107) mmol/L Carbon Dioxide 31 (22-32) mmol/L BUN 10 (7-17) mg/dL Creatinine 0.70 (0.52-1.04) mg/dL Estimated GFR > 60.0 (>60) mL/min BUN/Creatinine Ratio 14.3 (6-22) Glucose 91 (70-100) mg/dL Calcium 8.8 (8.4-10.2) mg/dL Total Bilirubin 0.2 (0.2-1.3) mg/dL AST 20 (14-36) IU/L ALT 33 (9-52) IU/L Alkaline Phosphatase 73 (38-126) U/L Total Protein 7.2 (6.3-8.2) g/dL Albumin 3.9 (3.5-5.0) g/dL Globulin 3.3 (1.7-4.1) g/dL Albumin/Globulin Ratio 1.2 (1.0-2.8) Amylase (30-110) U/L Lipase 36 (23-300) U/L Urine RBC None seen (0-5/HPF) Urine WBC 1-5/hpf (0-5/HPF) Ur Squamous Epith Cells 1-5 /hpf Urine Bacteria None seen (None) Urine Mucus 1+ H (Negative) Ur Culture Indicated? Cult not indicated 05/24/18 Range/Units 18:53 WBC (4.5-11.0) X10^3/uL RBC (4.0-5.2) X10^6/uL Hgb (12.0-16.0) g/dL Hct (36-46) % MCV (80-100) fL MCH (26-34) PG MCHC (30-36) % RDW (11.6-14.8) % Plt Count (150-400) X10^3/uL Neut % (Auto) (50-75) % Lymph % (Auto) (25-40) % [place] % (Auto) (3-14) % Eos % (Auto) (2-4) % Baso % (Auto) (0-2) % Neut # (Auto) (5291-2924) /uL Lymph # (Auto) (9666-2644) /uL [place] # (Auto) (0-900) /uL Eos # (Auto) (0-450) /uL Baso # (Auto) (0-100) /uL Sodium (137-145) mmol/L Potassium (3.4-5.1) mmol/L Chloride (98-107) mmol/L Carbon Dioxide (22-32) mmol/L BUN (7-17) mg/dL Creatinine (0.52-1.04) mg/dL Estimated GFR (>60) mL/min BUN/Creatinine Ratio (6-22) Glucose (70-100) mg/dL Calcium (8.4-10.2) mg/dL Total Bilirubin (0.2-1.3) mg/dL AST (14-36) IU/L ALT (9-52) IU/L Alkaline Phosphatase (38-126) U/L Total Protein (6.3-8.2) g/dL Albumin (3.5-5.0) g/dL Globulin (1.7-4.1) g/dL Albumin/Globulin Ratio (1.0-2.8) Amylase 72 (30-110) U/L Lipase (23-300) U/L Urine RBC (0-5/HPF) Urine WBC (0-5/HPF) Ur Squamous Epith Cells Urine Bacteria (None) Urine Mucus (Negative) Ur Culture Indicated? Point of care testing: Urine Dip Bedside Urine Glucose Negative Bedside Urine Bilirubin - Negative Bedside Urine Ketone - Negative Urine Specific [place] 1.025 Bedside Urine Occult Blood - Negative Bedside Urine pH 6.0 Bedside Urine Protein +/- 15 Bedside Urine Urobilinogen +/- 1mg Bedside Urine Nitrite - Negative Bedside Urine Leukocytes - Negative Esterase Discharge Plan Departure Patient Disposition: Home Clinical Impression: Post-operative pain, Hypokalemia Discharge Date/Time: 05/24/18 21:07 Interventions: ED Discharge Assessment Last Done: 05/24/18 21:05 Instructions: DI for Abdominal Pain-Adult, DI for Acute Pain -- Adult Activity Restrictions/Additional Instructions: Your labs came back grossly normal today. Your white blood cell count is returning to normal. Her potassium was slightly low, so we gave you some potassium. Your pain is consistent with gas trapping from surgery. Please continue to use her pain medications as needed and try a heat pack on her shoulders. Please follow up with primary care provider as well as her OBGYN. Please come back to emergency department for any acute concerns including chest pain, concern for heart attack or stroke. Prescriptions: No Action Ondansetron (Zofran Odt) tablet 4 mg PO PRN PRN (Reason: Nausea) Qty: 0 RF: 0 hydrocodone-acetaminophen [[place]] 5-325 mg tablet 1 tab PO Q4-6H PRN (Reason: post op pain) Qty: 30 RF: 0 medroxyprogesterone [Depo-Provera] 150 mg/mL syringe 150 mg IM [id number] RF: 0 alprazolam [Xanax] 0.25 mg tablet 0.25 mg PO BID-TID PRN (Reason: anxiety) Qty: 10 RF: 0 ranitidine HCl [Acid Security Team Lead (ranitidine)] 150 mg Tablet 150 mg PO PRN PRN (Reason: Acid Reflux) RF: 0 ondansetron 4 mg tablet,disintegrating 4 mg PO QID PRN (Reason: nausea and vomiting) Qty: 14 RF: 2 albuterol sulfate [ProAir HFA] 90 mcg/actuation HFA aerosol inhaler 1 puff INHALATION Q6H PRN (Reason: Adequate Ventilation) RF: 0 Referrals: Chico Marcano [Primary Care Provider] - <Narendra Kee DO - Last Filed: 05/24/18 22:12> [facility] Attending Celia Attestation: I was available for consultation during this patient's emergency department encounter
--- NOTE | 2018-05-24 20:39 | ED_ITS ---
HPI - Abdominal Pain <JO Xavier-BC - Last Filed: 05/24/18 22:07> General Chief Complaint: Abdominal Pain Stated Complaint: pain in right side after surgery Time Seen by Provider: 05/24/18 18:33 Source: patient and family Mode of arrival: ambulatory Limitations: no limitations History of Present Illness HPI narrative: Patient is a 32-year-old female nonsmoker who presents with her with the chief complaint postoperative pain. She had a laparoscopic hysterectomy done last week by Dr. Ross. She states she had right rib and right upper quadrant pain immediately postoperative and has been getting worse since. She denies any fevers nausea vomiting or diarrhea. She had a bowel movement today. She states her incisions look great. She has been using her Vicodin at home for pain. Related Data Home Medications Medication Instructions Recorded Confirmed Ondansetron (Zofran Odt) 4 mg PO PRN PRN #0 08/18/10 05/18/18 albuterol sulfate HFA 90 1 puff INHALATION Q6H PRN 12/27/17 05/18/18 mcg/actuation aerosol inhaler medroxyprogesterone 150 mg/mL 150 mg IM [id number] 03/13/18 03/13/18 intramuscular syringe ranitidine HCl [[employer] Representative 150 mg PO PRN PRN 05/18/18 05/18/18 (ranitidine)] Previous Rx's Medication Instructions Recorded alprazolam 0.25 mg tablet 0.25 mg PO BID-TID PRN #10 tab 04/30/18 ondansetron 4 mg PO QID PRN #14 tab 05/18/18 hydrocodone 5 mg-acetaminophen 325 1 tab PO Q4-6H PRN #30 tab 05/21/18 mg tablet Allergies Allergy/AdvReac Type Severity Reaction Status Date / Time amoxicillin Allergy Intermediate Rash, Verified 05/24/18 17:48 throat was tingly azithromycin Allergy Intermediate Gastrointestinal Verified 05/24/18 17:48 Upset ciprofloxacin Allergy Intermediate Gastrointestinal Verified 05/24/18 17:48 Upset Penicillins Allergy Intermediate Rash Verified 05/24/18 17:48 hydromorphone Allergy Mild Flushing Verified 05/24/18 17:48 ibuprofen Allergy Mild Kidney Verified 05/24/18 17:48 infection Pertussis Vaccines Allergy Unknown Seizure Verified 05/24/18 17:48 [PERTUSSIS VACCINES] gluten AdvReac Mild Stomach Verified 05/24/18 17:48 pain, nausea, headache nickel AdvReac Mild Irritation/ Verified 05/24/18 17:48 redness Review of Systems <ERIK Xavier - Last Filed: 05/24/18 22:07> Review of Systems GENERAL: Denies chills, fatigue, malaise, fever, sweats. HEENT: Denies sinus pain, ear pain, sore throat, difficulty swallowing, dizziness. RESPIRATORY: Denies dyspnea, cough, wheezing, hemoptysis, sputum. CARDIOVASCULAR: Denies chest pain, palpitations, orthopnea, edema, GASTROINTESTINAL: See HPI : Denies dysuria, frequency, incontinence, hematuria, urinary retention. MUSCULOSKELETAL: denies weakness, joint pain, or bony pain SKIN: HPI NEUROLOGIC: Denies weakness, headache, numbness, change in speech, confusion, seizures, incoordination. PSYCHIATRIC: No concerning psychosocial issues. 12 point review of systems is negative except for those stated above PFSH <ERIK Xavier - Last Filed: 05/24/18 22:07> Medical History Asthma (Acute) Surgical History H/O exploratory laparotomy (Acute) H/O left knee surgery (Acute) History of open heart surgery (Acute) History of surgery (Acute) Social History household members: spouse and children Smoking Status: Former smoker Social History household members: spouse and children Smoking Status: Former smoker Exam <ERIK Xavier - Last Filed: 05/24/18 22:07> Narrative Exam Narrative: GENERAL: This is a well-nourished, well-developed patient, lying on stretcher HEAD: Atraumatic. Normocephalic. No temporal or scalp tenderness. EYES: Pupils equal round and reactive. Extraocular motions intact. No scleral icterus. No injection or drainage. ENT: Nose without bleeding, purulent drainage or septal hematoma. Throat without erythema, tonsillar hypertrophy or exudate. Uvula midline. Airway patent. NECK: Trachea midline. No JVD or lymphadenopathy. Supple, nontender, no meningeal signs. CARDIOVASCULAR: Regular rate and rhythm without murmurs, gallops, or rubs. RESPIRATORY: Clear to auscultation. Breath sounds equal bilaterally. No wheezes, rales, or rhonchi. No coughing. Pain to palpation right lower ribs. GASTROINTESTINAL: Abdomen soft, non-tender, nondistended. No hepato- splenomegaly, or palpable masses. No guarding. Active bowel sounds all 4 quadrants. Negative Banda sign. EXTREMITIES: No clubbing, cyanosis, or edema. No joint tenderness, effusion, or edema noted. BACK: Nontender without deformity or crepitance. No flank tenderness. NEURO: AOx3. SKIN: Four abdominal surgical incisions clean dry intact. No surrounding erythema. No discharge. Initial Vital Signs Initial Vital Signs: Vital Signs Temperature 99.4 F 05/24/18 17:49 Pulse Rate 68 05/24/18 17:49 Respiratory Rate 18 05/24/18 17:49 Blood Pressure 102/66 05/24/18 17:49 Pulse Oximetry 99 05/24/18 17:49 <Narendra Kee DO - Last Filed: 05/24/18 22:12> Initial Vital Signs Initial Vital Signs: Vital Signs Temperature 99.4 F 05/24/18 17:49 Pulse Rate 68 05/24/18 17:49 Respiratory Rate 18 05/24/18 17:49 Blood Pressure 102/66 05/24/18 17:49 Pulse Oximetry 99 05/24/18 17:49 Course <JO Xavier-BC - Last Filed: 05/24/18 22:07> Orders Ordered: ED Orders 05/24/18 18:15 Complete Blood Count AUTO DIFF Stat Urine Microscopic Stat 05/24/18 18:51 Comprehensive Metabolic Panel Stat Lipase Stat 05/24/18 18:53 Amylase Stat Discontinued Medications Morphine Sulfate (Morphine) 4 mg IV NOW ONE Stop: 05/24/18 19:01 Last Admin: 05/24/18 19:29 Dose: 4 mg Morphine Sulfate (Morphine Sulfate) 2 mg IV NOW ONE Stop: 05/24/18 20:01 Last Admin: 05/24/18 20:15 Dose: 2 mg Ondansetron HCl (Zofran) 4 mg IV NOW ONE Stop: 05/24/18 19:01 Last Admin: 05/24/18 19:29 Dose: 4 mg Potassium Chloride (Potassium Chloride) 40 meq PO NOW ONE Stop: 05/24/18 20:25 Last Admin: 05/24/18 21:00 Dose: 40 meq Vital Signs - 8 hr 05/24/18 17:49 05/24/18 21:05 Temperature 99.4 F Pulse Rate 68 65 Respiratory Rate 18 18 Blood Pressure 102/66 Blood Pressure [Left Arm] 114/87 Pulse Oximetry 99 98 <Narendra Kee DO - Last Filed: 05/24/18 22:12> Orders Ordered: ED Orders 05/24/18 18:15 Complete Blood Count AUTO DIFF Stat Urine Microscopic Stat 05/24/18 18:51 Comprehensive Metabolic Panel Stat Lipase Stat 05/24/18 18:53 Amylase Stat Discontinued Medications Morphine Sulfate (Morphine) 4 mg IV NOW ONE Stop: 05/24/18 19:01 Last Admin: 05/24/18 19:29 Dose: 4 mg Morphine Sulfate (Morphine Sulfate) 2 mg IV NOW ONE Stop: 05/24/18 20:01 Last Admin: 05/24/18 20:15 Dose: 2 mg Ondansetron HCl (Zofran) 4 mg IV NOW ONE Stop: 05/24/18 19:01 Last Admin: 05/24/18 19:29 Dose: 4 mg Potassium Chloride (Potassium Chloride) 40 meq PO NOW ONE Stop: 05/24/18 20:25 Last Admin: 05/24/18 21:00 Dose: 40 meq Vital Signs - 8 hr 05/24/18 17:49 05/24/18 21:05 Temperature 99.4 F Pulse Rate 68 65 Respiratory Rate 18 18 Blood Pressure 102/66 Blood Pressure [Left Arm] 114/87 Pulse Oximetry 99 98 MDM - Abdominal Pain <ERIK Xavier - Last Filed: 05/24/18 22:07> Lab Data Result diagrams: 05/24/18 18:15 05/24/18 18:51 Lab Results 05/24/18 05/24/18 05/24/18 Range/Units 18:15 18:15 18:51 WBC 11.3 H (4.5-11.0) X10^3/uL RBC 3.79 L (4.0-5.2) X10^6/uL Hgb 11.0 L (12.0-16.0) g/dL Hct 33.4 L (36-46) % MCV 88.3 (80-100) fL MCH 29.2 (26-34) PG MCHC 33.1 (30-36) % RDW 12.4 (11.6-14.8) % Plt Count 455 H (150-400) X10^3/uL Neut % (Auto) 65.4 (50-75) % Lymph % (Auto) 23.8 L (25-40) % [place] % (Auto) 7.6 (3-14) % Eos % (Auto) 2.6 (2-4) % Baso % (Auto) 0.6 (0-2) % Neut # (Auto) 7400 H (6273-7907) /uL Lymph # (Auto) 2700 (1850-9689) /uL [place] # (Auto) 900 (0-900) /uL Eos # (Auto) 300 (0-450) /uL Baso # (Auto) 100 (0-100) /uL Sodium 141 (137-145) mmol/L Potassium 3.3 L (3.4-5.1) mmol/L Chloride 102 (98-107) mmol/L Carbon Dioxide 31 (22-32) mmol/L BUN 10 (7-17) mg/dL Creatinine 0.70 (0.52-1.04) mg/dL Estimated GFR > 60.0 (>60) mL/min BUN/Creatinine Ratio 14.3 (6-22) Glucose 91 (70-100) mg/dL Calcium 8.8 (8.4-10.2) mg/dL Total Bilirubin 0.2 (0.2-1.3) mg/dL AST 20 (14-36) IU/L ALT 33 (9-52) IU/L Alkaline Phosphatase 73 (38-126) U/L Total Protein 7.2 (6.3-8.2) g/dL Albumin 3.9 (3.5-5.0) g/dL Globulin 3.3 (1.7-4.1) g/dL Albumin/Globulin Ratio 1.2 (1.0-2.8) Amylase (30-110) U/L Lipase 36 (23-300) U/L Urine RBC None seen (0-5/HPF) Urine WBC 1-5/hpf (0-5/HPF) Ur Squamous Epith Cells 1-5 /hpf Urine Bacteria None seen (None) Urine Mucus 1+ H (Negative) Ur Culture Indicated? Cult not indicated 05/24/18 Range/Units 18:53 WBC (4.5-11.0) X10^3/uL RBC (4.0-5.2) X10^6/uL Hgb (12.0-16.0) g/dL Hct (36-46) % MCV (80-100) fL MCH (26-34) PG MCHC (30-36) % RDW (11.6-14.8) % Plt Count (150-400) X10^3/uL Neut % (Auto) (50-75) % Lymph % (Auto) (25-40) % [place] % (Auto) (3-14) % Eos % (Auto) (2-4) % Baso % (Auto) (0-2) % Neut # (Auto) (3940-7024) /uL Lymph # (Auto) (9908-2286) /uL [place] # (Auto) (0-900) /uL Eos # (Auto) (0-450) /uL Baso # (Auto) (0-100) /uL Sodium (137-145) mmol/L Potassium (3.4-5.1) mmol/L Chloride (98-107) mmol/L Carbon Dioxide (22-32) mmol/L BUN (7-17) mg/dL Creatinine (0.52-1.04) mg/dL Estimated GFR (>60) mL/min BUN/Creatinine Ratio (6-22) Glucose (70-100) mg/dL Calcium (8.4-10.2) mg/dL Total Bilirubin (0.2-1.3) mg/dL AST (14-36) IU/L ALT (9-52) IU/L Alkaline Phosphatase (38-126) U/L Total Protein (6.3-8.2) g/dL Albumin (3.5-5.0) g/dL Globulin (1.7-4.1) g/dL Albumin/Globulin Ratio (1.0-2.8) Amylase 72 (30-110) U/L Lipase (23-300) U/L Urine RBC (0-5/HPF) Urine WBC (0-5/HPF) Ur Squamous Epith Cells Urine Bacteria (None) Urine Mucus (Negative) Ur Culture Indicated? Point of care testing: Urine Dip Bedside Urine Glucose Negative Bedside Urine Bilirubin - Negative Bedside Urine Ketone - Negative Urine Specific Rule 1.025 Bedside Urine Occult Blood - Negative Bedside Urine pH 6.0 Bedside Urine Protein +/- 15 Bedside Urine Urobilinogen +/- 1mg Bedside Urine Nitrite - Negative Bedside Urine Leukocytes - Negative Esterase MDM Narrative Medical decision making narrative: The patient is a 32-year-old female who presents with right lower rib pain 1 week after laparoscopic hysterectomy. Her white blood cell count is normalizing. She is not febrile. She is having bowel movements. I spoke with Dr. Khan is at this patient's pain is consistent with gas trapping. I discussed at length with the patient use of pain medication as well as warm packs to her shoulders as per Dr. Khan recommendation. I discussed following up with her primary care provider as well as Dr. Ross. Discussed return precautions of inability to keep down food or fluids, fever, acute concerns. Patient has been had no questions or concerns upon discharge. <Narendra Kee, DO - Last Filed: 05/24/18 22:12> Lab Data Lab Results 05/24/18 05/24/18 05/24/18 Range/Units 18:15 18:15 18:51 WBC 11.3 H (4.5-11.0) X10^3/uL RBC 3.79 L (4.0-5.2) X10^6/uL Hgb 11.0 L (12.0-16.0) g/dL Hct 33.4 L (36-46) % MCV 88.3 (80-100) fL MCH 29.2 (26-34) PG MCHC 33.1 (30-36) % RDW 12.4 (11.6-14.8) % Plt Count 455 H (150-400) X10^3/uL Neut % (Auto) 65.4 (50-75) % Lymph % (Auto) 23.8 L (25-40) % [place] % (Auto) 7.6 (3-14) % Eos % (Auto) 2.6 (2-4) % Baso % (Auto) 0.6 (0-2) % Neut # (Auto) 7400 H (7983-0831) /uL Lymph # (Auto) 2700 (6271-9854) /uL [place] # (Auto) 900 (0-900) /uL Eos # (Auto) 300 (0-450) /uL Baso # (Auto) 100 (0-100) /uL Sodium 141 (137-145) mmol/L Potassium 3.3 L (3.4-5.1) mmol/L Chloride 102 (98-107) mmol/L Carbon Dioxide 31 (22-32) mmol/L BUN 10 (7-17) mg/dL Creatinine 0.70 (0.52-1.04) mg/dL Estimated GFR > 60.0 (>60) mL/min BUN/Creatinine Ratio 14.3 (6-22) Glucose 91 (70-100) mg/dL Calcium 8.8 (8.4-10.2) mg/dL Total Bilirubin 0.2 (0.2-1.3) mg/dL AST 20 (14-36) IU/L ALT 33 (9-52) IU/L Alkaline Phosphatase 73 (38-126) U/L Total Protein 7.2 (6.3-8.2) g/dL Albumin 3.9 (3.5-5.0) g/dL Globulin 3.3 (1.7-4.1) g/dL Albumin/Globulin Ratio 1.2 (1.0-2.8) Amylase (30-110) U/L Lipase 36 (23-300) U/L Urine RBC None seen (0-5/HPF) Urine WBC 1-5/hpf (0-5/HPF) Ur Squamous Epith Cells 1-5 /hpf Urine Bacteria None seen (None) Urine Mucus 1+ H (Negative) Ur Culture Indicated? Cult not indicated 05/24/18 Range/Units 18:53 WBC (4.5-11.0) X10^3/uL RBC (4.0-5.2) X10^6/uL Hgb (12.0-16.0) g/dL Hct (36-46) % MCV (80-100) fL MCH (26-34) PG MCHC (30-36) % RDW (11.6-14.8) % Plt Count (150-400) X10^3/uL Neut % (Auto) (50-75) % Lymph % (Auto) (25-40) % [place] % (Auto) (3-14) % Eos % (Auto) (2-4) % Baso % (Auto) (0-2) % Neut # (Auto) (7518-1141) /uL Lymph # (Auto) (8758-6567) /uL [place] # (Auto) (0-900) /uL Eos # (Auto) (0-450) /uL Baso # (Auto) (0-100) /uL Sodium (137-145) mmol/L Potassium (3.4-5.1) mmol/L Chloride (98-107) mmol/L Carbon Dioxide (22-32) mmol/L BUN (7-17) mg/dL Creatinine (0.52-1.04) mg/dL Estimated GFR (>60) mL/min BUN/Creatinine Ratio (6-22) Glucose (70-100) mg/dL Calcium (8.4-10.2) mg/dL Total Bilirubin (0.2-1.3) mg/dL AST (14-36) IU/L ALT (9-52) IU/L Alkaline Phosphatase (38-126) U/L Total Protein (6.3-8.2) g/dL Albumin (3.5-5.0) g/dL Globulin (1.7-4.1) g/dL Albumin/Globulin Ratio (1.0-2.8) Amylase 72 (30-110) U/L Lipase (23-300) U/L Urine RBC (0-5/HPF) Urine WBC (0-5/HPF) Ur Squamous Epith Cells Urine Bacteria (None) Urine Mucus (Negative) Ur Culture Indicated? Point of care testing: Urine Dip Bedside Urine Glucose Negative Bedside Urine Bilirubin - Negative Bedside Urine Ketone - Negative Urine Specific Rule 1.025 Bedside Urine Occult Blood - Negative Bedside Urine pH 6.0 Bedside Urine Protein +/- 15 Bedside Urine Urobilinogen +/- 1mg Bedside Urine Nitrite - Negative Bedside Urine Leukocytes - Negative Esterase Discharge Plan Departure Patient Disposition: Home Clinical Impression: Post-operative pain, Hypokalemia Discharge Date/Time: 05/24/18 21:07 Interventions: ED Discharge Assessment Last Done: 05/24/18 21:05 Instructions: DI for Abdominal Pain-Adult, DI for Acute Pain -- Adult Activity Restrictions/Additional Instructions: Your labs came back grossly normal today. Your white blood cell count is returning to normal. Her potassium was slightly low, so we gave you some potassium. Your pain is consistent with gas trapping from surgery. Please continue to use her pain medications as needed and try a heat pack on her shoulders. Please follow up with primary care provider as well as her OBGYN. Please come back to emergency department for any acute concerns including chest pain, concern for heart attack or stroke. Prescriptions: No Action Ondansetron (Zofran Odt) tablet 4 mg PO PRN PRN (Reason: Nausea) Qty: 0 RF: 0 hydrocodone-acetaminophen [[place]] 5-325 mg tablet 1 tab PO Q4-6H PRN (Reason: post op pain) Qty: 30 RF: 0 medroxyprogesterone [Depo-Provera] 150 mg/mL syringe 150 mg IM [id number] RF: 0 alprazolam [Xanax] 0.25 mg tablet 0.25 mg PO BID-TID PRN (Reason: anxiety) Qty: 10 RF: 0 ranitidine HCl [Acid [employer] Representative (ranitidine)] 150 mg Tablet 150 mg PO PRN PRN (Reason: Acid Reflux) RF: 0 ondansetron 4 mg tablet,disintegrating 4 mg PO QID PRN (Reason: nausea and vomiting) Qty: 14 RF: 2 albuterol sulfate [ProAir HFA] 90 mcg/actuation HFA aerosol inhaler 1 puff INHALATION Q6H PRN (Reason: Adequate Ventilation) RF: 0 Referrals: Chico Marcano [Primary Care Provider] - <Narendra Kee DO - Last Filed: 05/24/18 22:12> [facility] Attending Celia Attestation: I was available for consultation during this patient's emergency department encounter
[2018-05-24] MEDS: POTASSIUM CHLORIDE 20 MEQ/15 ML UDC 40 MEQ PO (21:00)
[2018-05-24 21:05] VITALS: BP 114/87; PULSE 65; RESP 18; O2SAT 98
== END 2018-05-24 21:07 | disposition home or self-care (01) ==
PROVIDERS: Emergency Medicine; Emergency Provider Nurse Practitioner Family; PCP Physician Assistant Medical
DX: G89.18 Other acute postprocedural pain (principal); E87.6 Hypokalemia
CPT/HCPCS: 36591; 80053; 81003; 81015; 82150; 83690; 85025; 96374; 96375; 96376; 99282; 99284; J2270; J2405

== ENCOUNTER 2018-07-01 18:43 | Emergency (ER) | payer OTHER, MEDICAID, SELFPAY ==
[2018-05-17 14:46] VITALS: BMI 19.7
[2018-07-01 19:10] VITALS: BP 102/65; PULSE 61; RESP 16; TEMP 37.1; O2SAT 99
--- NOTE | 2018-07-01 19:13 | DI.RAD.S_ITS ---
PROCEDURE: XR RIBS RT MIN 3V W CXR 1V INDICATIONS: fall, right rib pain TECHNIQUE: 2 views of the right ribs were acquired, along with a single view chest. COMPARISON: None. FINDINGS: Surgical changes and devices: None. Bones and chest wall: No fractures or dislocations. No suspicious bony lesions. Overlying soft tissues appear unremarkable. Lungs and pleura: No pleural effusions or pneumothorax. Lungs appear clear. Mediastinum: Mediastinal contours appear normal. Heart size is normal. IMPRESSION: Negative for acute pulmonary process. No evidence of displaced right rib fracture. Dictated by: Jae Cole M.D. on 07/01/2018 at 19:42 Approved by: Jae Cole M.D. on 07/01/2018 at 19:43
--- NOTE | 2018-07-01 19:27 | ED.URI ---
HPI - URI/Sore Throat General Chief Complaint: Upper Respiratory Symptoms Stated Complaint: fall on , right side rib pain Time Seen by Provider: 07/01/18 19:27 Source: patient and family Mode of arrival: ambulatory Limitations: no limitations History of Present Illness HPI Narrative: 32-year-old female, nonsmoker presents with severe right-sided rib pain since a mechanical fall a few days ago. She was trying to get her 3-year-old into a car see and it was proving difficult. She slipped and fell into the car seat and since then has had increasing right-sided rib pain. She denies any shortness of breath, cough or bloody sputum. She is not dizzy or weak or lightheaded. Her pain is severe with motion and improves with rest. She denies numbness, tingling or weakness. MD Complaint: other Onset (ago): day(s) Duration: progressively worsening Severity: severe Relieving factors: nothing Associated symptoms: chest pain Treatments prior to arrival: none Related Data Home Medications Medication Instructions Recorded Confirmed Ondansetron (Zofran Odt) 4 mg PO PRN PRN #0 08/18/10 05/18/18 albuterol sulfate HFA 90 1 puff INHALATION Q6H PRN 12/27/17 05/18/18 mcg/actuation aerosol inhaler ranitidine HCl [Acid Product Scientist 150 mg PO PRN PRN 05/18/18 05/18/18 (ranitidine)] Previous Rx's Medication Instructions Recorded alprazolam 0.25 mg tablet 0.25 mg PO BID-TID PRN #10 tab 04/30/18 ondansetron 4 mg PO QID PRN #14 tab 05/18/18 hydrocodone 5 mg-acetaminophen 325 1 tab PO Q4-6H PRN #20 tab 06/05/18 mg tablet hydrocodone-acetaminophen 1 tab PO Q4-6H PRN #10 tab 07/01/18 Allergies Allergy/AdvReac Type Severity Reaction Status Date / Time amoxicillin Allergy Intermediate Rash, Verified 06/05/18 11:42 throat was tingly azithromycin Allergy Intermediate Gastrointestinal Verified 06/05/18 11:42 Upset ciprofloxacin Allergy Intermediate Gastrointestinal Verified 06/05/18 11:42 Upset Penicillins Allergy Intermediate Rash Verified 06/05/18 11:42 hydromorphone Allergy Mild Flushing Verified 06/05/18 11:42 ibuprofen Allergy Mild Kidney Verified 06/05/18 11:42 infection Pertussis Vaccines Allergy Unknown Seizure Verified 06/05/18 11:42 [PERTUSSIS VACCINES] gluten AdvReac Mild Stomach Verified 06/05/18 11:42 pain, nausea, headache nickel AdvReac Mild Irritation/ Verified 06/05/18 11:42 redness Review of Systems Constitutional Denies chills, Denies fever(s), Denies lethargy and Denies weakness Eyes Denies change in vision, Denies eye discharge, Denies irritation and Denies loss of vision ENT Ears, Nose, Mouth, and Throat: Denies change in voice, Denies neck pain and Denies sore throat Cardiovascular Denies chest pain, Denies irregular heart rhythm, Denies lightheadedness, Denies palpitations, Denies dyspnea, Denies dyspnea on exertion and Denies orthopnea Respiratory Denies cough, Reports pain on inspiration, Reports pain with cough, Denies dyspnea, Denies dyspnea on exertion and Denies wheezing Gastrointestinal Gastrointestinal: Denies abdominal pain, Denies change in bowel habits, Denies diarrhea, Denies nausea and Denies vomiting Genitourinary Denies hematuria, Denies flank pain, Denies urinary incontinence and Denies urinary urgency Musculoskeletal Denies neck pain Integumentary/Breasts Denies pruritus, Denies erythema, Denies rash and Denies wounds Neurologic Denies confusion, Denies loss of vision and Denies weakness Psychiatric Denies anxiety, Denies confusion, Denies depression, Denies homicidal ideation and Denies suicidal ideation Endocrine Denies palpitations Hematologic/Lymphatic Denies easy bruising Allergic/Immunologic Denies wheezing PFSH Medical History Asthma (Acute) Surgical History H/O exploratory laparotomy (Acute) H/O left knee surgery (Acute) History of open heart surgery (Acute) History of surgery (Acute) S/P laparoscopic supracervical hysterectomy (Acute 05/17/18) Social History household members: spouse and children Smoking Status: Former smoker Social History household members: spouse and children Smoking Status: Former smoker Exam Narrative Exam Narrative: GENERAL: 32-year-old female obviously uncomfortable, tearful and splinting right-sided ribs HEAD: Atraumatic. Normocephalic. No temporal or scalp tenderness. EYES: Pupils equal round and reactive. Extraocular motions intact. No scleral icterus. No injection or drainage. ENT: Nose without bleeding, purulent drainage or septal hematoma. Throat without erythema, tonsillar hypertrophy or exudate. Uvula midline. Airway patent. NECK: Trachea midline. No JVD or lymphadenopathy. Supple, nontender, no meningeal signs. CARDIOVASCULAR: Regular rate and rhythm without murmurs, gallops, or rubs. RESPIRATORY: Clear to auscultation. Breath sounds equal bilaterally. No wheezes, rales, or rhonchi. Severe tenderness to palpation of right-sided ribs, no crepitance or subcu emphysema GASTROINTESTINAL: Abdomen soft, non-tender, nondistended. No hepato-splenomegaly, or palpable masses. No guarding. EXTREMITIES: No clubbing, cyanosis, or edema. No joint tenderness, effusion, or edema noted. BACK: Nontender without deformity or crepitance. No flank tenderness. NEURO: AOx3. SKIN: No rash or erythema. Initial Vital Signs Initial Vital Signs: Vital Signs Temperature 98.8 F 07/01/18 19:10 Pulse Rate 61 07/01/18 19:10 Respiratory Rate 16 07/01/18 19:10 Blood Pressure 102/65 07/01/18 19:10 Pulse Oximetry 99 07/01/18 19:10 Course Orders Ordered: Discontinued Medications Hydrocodone Bitart/Acetaminophen ([place] 5/325) 1 tab PO NOW ONE Stop: 07/01/18 19:32 Last Admin: 07/01/18 19:36 Dose: 1 tab Ondansetron HCl (Zofran Odt) 4 mg SL NOW ONE Stop: 07/01/18 19:34 Last Admin: 07/01/18 19:37 Dose: 4 mg Vital Signs - 8 hr 07/01/18 19:10 Temperature 98.8 F Pulse Rate 61 Respiratory Rate 16 Blood Pressure 102/65 Pulse Oximetry 99 MDM - URI/Sore Throat Imaging Data Chest x-ray: Radiologist's impression: [address] [address] XRay Report Signed Patient: Sosa Roberts [facility]#: [id number] : 1985Acct:[id number] Age/Sex: 32 / FDate of Service: 07/01/18 Loc: ED Accession Number: [id number] Procedure: XR ribs RT min 3V w CXR1V Ordering Provider: Aroldo Huber D.O. PROCEDURE: XR RIBS RT MIN 3V W CXR 1V INDICATIONS: fall, right rib pain TECHNIQUE: 2 views of the right ribs were acquired, along with a single view chest. COMPARISON: None. FINDINGS: Surgical changes and devices: None. Bones and chest wall: No fractures or dislocations. No suspicious bony lesions. Overlying soft tissues appear unremarkable. Lungs and pleura: No pleural effusions or pneumothorax. Lungs appear clear. Mediastinum: Mediastinal contours appear normal. Heart size is normal. IMPRESSION: Negative for acute pulmonary process. No evidence of displaced right rib fracture. Dictated by: Jae Cole M.D. on 07/01/2018 at 19:42 Approved by: Jae Cole M.D. on 07/01/2018 at 19:43 Discharge Plan Departure Patient Disposition: Home Clinical Impression: Contusion of rib on left side Qualifiers: Encounter type: initial encounter Qualified Code(s): S20.212A - Contusion of left front wall of thorax, initial encounter Discharge Date/Time: 07/01/18 21:01 Interventions: ED Discharge Assessment Last Done: 07/01/18 21:00 Instructions: DI for Rib Contusion Activity Restrictions/Additional Instructions: *You have been diagnosed with [ acute right rib contusion ] *What to do: *Take medications as directed *Follow up with your primary care provider in 2-3 days, call for an appointment. Let them know you were seen in the Emergency Department and that we ask that you be seen in follow up *Return to ER if you should have any new, worsening or concerning symptoms Prescriptions: New hydrocodone-acetaminophen 5-325 mg tablet 1 tab PO Q4-6H PRN (Reason: pain) Qty: 10 RF: 0 No Action Ondansetron (Zofran Odt) tablet 4 mg PO PRN PRN (Reason: Nausea) Qty: 0 RF: 0 alprazolam [Xanax] 0.25 mg tablet 0.25 mg PO BID-TID PRN (Reason: anxiety) Qty: 10 RF: 0 hydrocodone-acetaminophen [[place]] 5-325 mg tablet 1 tab PO Q4-6H PRN (Reason: post op pain) Qty: 20 RF: 0 ranitidine HCl [Acid Product Scientist (ranitidine)] 150 mg Tablet 150 mg PO PRN PRN (Reason: Acid Reflux) RF: 0 ondansetron 4 mg tablet,disintegrating 4 mg PO QID PRN (Reason: nausea and vomiting) Qty: 14 RF: 2 albuterol sulfate [ProAir HFA] 90 mcg/actuation HFA aerosol inhaler 1 puff INHALATION Q6H PRN (Reason: Adequate Ventilation) RF: 0 Referrals: Chico Marcano [Primary Care Provider] -
[2018-07-01] MEDS: HYDROCODONE/ACET 5/325 TABLET 1 TAB PO (19:36)
[2018-07-01] MEDS: ONDANSETRON 4 MG ODT SL (19:37)
--- NOTE | 2018-07-02 06:40 | ED_ITS ---
HPI - URI/Sore Throat General Chief Complaint: Upper Respiratory Symptoms Stated Complaint: fall on , right side rib pain Time Seen by Provider: 07/01/18 19:27 Source: patient and family Mode of arrival: ambulatory Limitations: no limitations History of Present Illness HPI Narrative: 32-year-old female, nonsmoker presents with severe right-sided rib pain since a mechanical fall a few days ago. She was trying to get her 3-year-old into a car see and it was proving difficult. She slipped and fell into the car seat and since then has had increasing right-sided rib pain. She denies any shortness of breath, cough or bloody sputum. She is not dizzy or weak or lightheaded. Her pain is severe with motion and improves with rest. She denies numbness, tingling or weakness. MD Complaint: other Onset (ago): day(s) Duration: progressively worsening Severity: severe Relieving factors: nothing Associated symptoms: chest pain Treatments prior to arrival: none Related Data Home Medications Medication Instructions Recorded Confirmed Ondansetron (Zofran Odt) 4 mg PO PRN PRN #0 08/18/10 05/18/18 albuterol sulfate HFA 90 1 puff INHALATION Q6H PRN 12/27/17 05/18/18 mcg/actuation aerosol inhaler ranitidine HCl [Acid Home Health Outreach Coordinator 150 mg PO PRN PRN 05/18/18 05/18/18 (ranitidine)] Previous Rx's Medication Instructions Recorded alprazolam 0.25 mg tablet 0.25 mg PO BID-TID PRN #10 tab 04/30/18 ondansetron 4 mg PO QID PRN #14 tab 05/18/18 hydrocodone 5 mg-acetaminophen 325 1 tab PO Q4-6H PRN #20 tab 06/05/18 mg tablet hydrocodone-acetaminophen 1 tab PO Q4-6H PRN #10 tab 07/01/18 Allergies Allergy/AdvReac Type Severity Reaction Status Date / Time amoxicillin Allergy Intermediate Rash, Verified 06/05/18 11:42 throat was tingly azithromycin Allergy Intermediate Gastrointestinal Verified 06/05/18 11:42 Upset ciprofloxacin Allergy Intermediate Gastrointestinal Verified 06/05/18 11:42 Upset Penicillins Allergy Intermediate Rash Verified 06/05/18 11:42 hydromorphone Allergy Mild Flushing Verified 06/05/18 11:42 ibuprofen Allergy Mild Kidney Verified 06/05/18 11:42 infection Pertussis Vaccines Allergy Unknown Seizure Verified 06/05/18 11:42 [PERTUSSIS VACCINES] gluten AdvReac Mild Stomach Verified 06/05/18 11:42 pain, nausea, headache nickel AdvReac Mild Irritation/ Verified 06/05/18 11:42 redness Review of Systems Constitutional Denies chills, Denies fever(s), Denies lethargy and Denies weakness Eyes Denies change in vision, Denies eye discharge, Denies irritation and Denies loss of vision ENT Ears, Nose, Mouth, and Throat: Denies change in voice, Denies neck pain and Denies sore throat Cardiovascular Denies chest pain, Denies irregular heart rhythm, Denies lightheadedness, Denies palpitations, Denies dyspnea, Denies dyspnea on exertion and Denies orthopnea Respiratory Denies cough, Reports pain on inspiration, Reports pain with cough, Denies dyspnea, Denies dyspnea on exertion and Denies wheezing Gastrointestinal Gastrointestinal: Denies abdominal pain, Denies change in bowel habits, Denies diarrhea, Denies nausea and Denies vomiting Genitourinary Denies hematuria, Denies flank pain, Denies urinary incontinence and Denies urinary urgency Musculoskeletal Denies neck pain Integumentary/Breasts Denies pruritus, Denies erythema, Denies rash and Denies wounds Neurologic Denies confusion, Denies loss of vision and Denies weakness Psychiatric Denies anxiety, Denies confusion, Denies depression, Denies homicidal ideation and Denies suicidal ideation Endocrine Denies palpitations Hematologic/Lymphatic Denies easy bruising Allergic/Immunologic Denies wheezing PFSH Medical History Asthma (Acute) Surgical History H/O exploratory laparotomy (Acute) H/O left knee surgery (Acute) History of open heart surgery (Acute) History of surgery (Acute) S/P laparoscopic supracervical hysterectomy (Acute 05/17/18) Social History household members: spouse and children Smoking Status: Former smoker Social History household members: spouse and children Smoking Status: Former smoker Exam Narrative Exam Narrative: GENERAL: 32-year-old female obviously uncomfortable, tearful and splinting right-sided ribs HEAD: Atraumatic. Normocephalic. No temporal or scalp tenderness. EYES: Pupils equal round and reactive. Extraocular motions intact. No scleral icterus. No injection or drainage. ENT: Nose without bleeding, purulent drainage or septal hematoma. Throat without erythema, tonsillar hypertrophy or exudate. Uvula midline. Airway patent. NECK: Trachea midline. No JVD or lymphadenopathy. Supple, nontender, no meningeal signs. CARDIOVASCULAR: Regular rate and rhythm without murmurs, gallops, or rubs. RESPIRATORY: Clear to auscultation. Breath sounds equal bilaterally. No wheezes, rales, or rhonchi. Severe tenderness to palpation of right-sided ribs, no crepitance or subcu emphysema GASTROINTESTINAL: Abdomen soft, non-tender, nondistended. No hepato- splenomegaly, or palpable masses. No guarding. EXTREMITIES: No clubbing, cyanosis, or edema. No joint tenderness, effusion, or edema noted. BACK: Nontender without deformity or crepitance. No flank tenderness. NEURO: AOx3. SKIN: No rash or erythema. Initial Vital Signs Initial Vital Signs: Vital Signs Temperature 98.8 F 07/01/18 19:10 Pulse Rate 61 07/01/18 19:10 Respiratory Rate 16 07/01/18 19:10 Blood Pressure 102/65 07/01/18 19:10 Pulse Oximetry 99 07/01/18 19:10 Course Orders Ordered: Discontinued Medications Hydrocodone Bitart/Acetaminophen ([place] 5/325) 1 tab PO NOW ONE Stop: 07/01/18 19:32 Last Admin: 07/01/18 19:36 Dose: 1 tab Ondansetron HCl (Zofran Odt) 4 mg SL NOW ONE Stop: 07/01/18 19:34 Last Admin: 07/01/18 19:37 Dose: 4 mg Vital Signs - 8 hr 07/01/18 19:10 Temperature 98.8 F Pulse Rate 61 Respiratory Rate 16 Blood Pressure 102/65 Pulse Oximetry 99 MDM - URI/Sore Throat Imaging Data Chest x-ray: Radiologist's impression: [address] [address] XRay Report Signed Patient: Sosa Roberts [facility]#: [id number] : 1985Acct:[id number] Age/Sex: 32 / FDate of Service: 07/01/18 Loc: ED Accession Number: [id number] Procedure: XR ribs RT min 3V w CXR1V Ordering Provider: Aroldo Huber D.O. PROCEDURE: XR RIBS RT MIN 3V W CXR 1V INDICATIONS: fall, right rib pain TECHNIQUE: 2 views of the right ribs were acquired, along with a single view chest. COMPARISON: None. FINDINGS: Surgical changes and devices: None. Bones and chest wall: No fractures or dislocations. No suspicious bony lesions. Overlying soft tissues appear unremarkable. Lungs and pleura: No pleural effusions or pneumothorax. Lungs appear clear. Mediastinum: Mediastinal contours appear normal. Heart size is normal. IMPRESSION: Negative for acute pulmonary process. No evidence of displaced right rib fracture. Dictated by: Jae Cole M.D. on 07/01/2018 at 19:42 Approved by: Jae Cole M.D. on 07/01/2018 at 19:43 Discharge Plan Departure Patient Disposition: Home Clinical Impression: Contusion of rib on left side Qualifiers: Encounter type: initial encounter Qualified Code(s): S20.212A - Contusion of left front wall of thorax, initial encounter Discharge Date/Time: 07/01/18 21:01 Interventions: ED Discharge Assessment Last Done: 07/01/18 21:00 Instructions: DI for Rib Contusion Activity Restrictions/Additional Instructions: *You have been diagnosed with [ acute right rib contusion ] *What to do: *Take medications as directed *Follow up with your primary care provider in 2-3 days, call for an appointment. Let them know you were seen in the Emergency Department and that we ask that you be seen in follow up *Return to ER if you should have any new, worsening or concerning symptoms Prescriptions: New hydrocodone-acetaminophen 5-325 mg tablet 1 tab PO Q4-6H PRN (Reason: pain) Qty: 10 RF: 0 No Action Ondansetron (Zofran Odt) tablet 4 mg PO PRN PRN (Reason: Nausea) Qty: 0 RF: 0 alprazolam [Xanax] 0.25 mg tablet 0.25 mg PO BID-TID PRN (Reason: anxiety) Qty: 10 RF: 0 hydrocodone-acetaminophen [[place]] 5-325 mg tablet 1 tab PO Q4-6H PRN (Reason: post op pain) Qty: 20 RF: 0 ranitidine HCl [Acid Home Health Outreach Coordinator (ranitidine)] 150 mg Tablet 150 mg PO PRN PRN (Reason: Acid Reflux) RF: 0 ondansetron 4 mg tablet,disintegrating 4 mg PO QID PRN (Reason: nausea and vomiting) Qty: 14 RF: 2 albuterol sulfate [ProAir HFA] 90 mcg/actuation HFA aerosol inhaler 1 puff INHALATION Q6H PRN (Reason: Adequate Ventilation) RF: 0 Referrals: Chico Marcano [Primary Care Provider] -
== END 2018-07-01 21:01 | disposition home or self-care (01) ==
PROVIDERS: Emergency Provider Emergency Medicine; PCP Physician Assistant Medical
DX: S20.211A Contusion of right front wall of thorax, initial encounter (principal); W19.XXXA Unspecified fall, initial encounter
CPT/HCPCS: 71101; 99282; 99283

== ENCOUNTER 2018-07-15 19:11 | Emergency (ER) | payer OTHER, MEDICAID, SELFPAY ==
[2018-05-17 14:46] VITALS: BMI 19.7
[2018-07-15 19:17] VITALS: BP 116/77; PULSE 76; RESP 18; TEMP 36.9; O2SAT 97
--- NOTE | 2018-07-15 19:55 | DI.RAD.S_ITS ---
PROCEDURE: XR RIBS RT MIN 3V W CXR 1V INDICATIONS: rt sided rib pain s/p fall TECHNIQUE: 2 views of the right ribs were acquired, along with a single view chest. COMPARISON: [facility], BOB, CHEST 2 VIEW, 01/28/2009, 21:11. [facility], BOB, XR RIBS RT MIN 3V W CXR 1V, 07/01/2018, 19:35. FINDINGS: Surgical changes and devices: None. Bones and chest wall: There is a minimally displaced right fifth rib fracture anteriorly. No suspicious bony lesions. Overlying soft tissues appear unremarkable. Lungs and pleura: No pleural effusions or pneumothorax. Lungs appear clear. Mediastinum: Mediastinal contours appear normal. Heart size is normal. IMPRESSION: Minimally displaced right fifth rib fracture anteriorly. Dictated by: Tim Allison M.D. on 07/15/2018 at 22:14 Approved by: Tim Allison M.D. on 07/15/2018 at 22:16
--- NOTE | 2018-07-15 20:26 | ED_ITS ---
HPI - Recheck/Abnormal Lab/Rx <Rose Mary HernandezTHOMASP-BC - Last Filed: 07/15/18 22:26> General Chief Complaint: Recheck/Abnormal Lab/Rx Stated Complaint: RIGHT RIB PAIN Time Seen by Provider: 07/15/18 19:46 Source: patient and family Mode of arrival: ambulatory Limitations: no limitations History of Present Illness HPI narrative: Patient is a 32-year-old female former smoker presents with her for chief complaint of right-sided rib pain after fall several weeks ago. She states that she initially came in and had negative x-rays, but is concerned as she is not improving. She has not taken any Tylenol or ibuprofen for her pain. She complains of a rattling sensation when she breathes. She denies any fevers nausea vomiting diarrhea chest pain or shortness of breath. denies any bruising. Related Data Home Medications Medication Instructions Recorded Confirmed Ondansetron (Zofran Odt) 4 mg PO PRN PRN #0 08/18/10 05/18/18 albuterol sulfate HFA 90 1 puff INHALATION Q6H PRN 12/27/17 05/18/18 mcg/actuation aerosol inhaler ranitidine HCl [Acid Sales Engineering Manager 150 mg PO PRN PRN 05/18/18 05/18/18 (ranitidine)] Previous Rx's Medication Instructions Recorded alprazolam 0.25 mg tablet 0.25 mg PO BID-TID PRN #10 tab 04/30/18 ondansetron 4 mg PO QID PRN #14 tab 05/18/18 hydrocodone-acetaminophen 1 tab PO Q4-6H PRN #10 tab 07/01/18 hydrocodone-acetaminophen 1 tab PO Q4-6H PRN #7 tab 07/15/18 lidocaine 1 patch TOP DAILY #15 each 07/15/18 ondansetron 4 mg PO TID-QID PRN #20 tab 07/15/18 Allergies Allergy/AdvReac Type Severity Reaction Status Date / Time amoxicillin Allergy Intermediate Rash, Verified 06/05/18 11:42 throat was tingly azithromycin Allergy Intermediate Gastrointestinal Verified 06/05/18 11:42 Upset ciprofloxacin Allergy Intermediate Gastrointestinal Verified 06/05/18 11:42 Upset Penicillins Allergy Intermediate Rash Verified 06/05/18 11:42 hydromorphone Allergy Mild Flushing Verified 06/05/18 11:42 ibuprofen Allergy Mild Kidney Verified 06/05/18 11:42 infection Pertussis Vaccines Allergy Unknown Seizure Verified 06/05/18 11:42 [PERTUSSIS VACCINES] gluten AdvReac Mild Stomach Verified 06/05/18 11:42 pain, nausea, headache nickel AdvReac Mild Irritation/ Verified 06/05/18 11:42 redness Review of Systems <ERIK Xavier - Last Filed: 07/15/18 22:26> Review of Systems GENERAL: Denies chills, fatigue, malaise, fever, sweats. HEENT: Denies sinus pain, ear pain, sore throat, difficulty swallowing, dizziness. RESPIRATORY: See HPI CARDIOVASCULAR: Denies chest pain, palpitations, orthopnea, edema, GASTROINTESTINAL: Denies nausea, vomiting, abdominal pain, diarrhea, constipation, melena. : Denies dysuria, frequency, incontinence, hematuria, urinary retention. MUSCULOSKELETAL: See HPI SKIN: See HPI NEUROLOGIC: Denies weakness, headache, numbness, change in speech, confusion, seizures, incoordination. PSYCHIATRIC: No concerning psychosocial issues. 12 point review of systems is negative except for those stated above PFSH <ERIK Xavier - Last Filed: 07/15/18 22:26> Medical History Asthma (Acute) Surgical History H/O exploratory laparotomy (Acute) H/O left knee surgery (Acute) History of open heart surgery (Acute) History of surgery (Acute) S/P laparoscopic supracervical hysterectomy (Acute 05/17/18) Social History household members: spouse and children Smoking Status: Former smoker Social History household members: spouse and children Smoking Status: Former smoker Exam <ERIK Xavier - Last Filed: 07/15/18 22:26> Narrative Exam Narrative: GENERAL: This is a well-nourished, well-developed patient, lying on her side HEAD: Atraumatic. Normocephalic. No temporal or scalp tenderness. EYES: Pupils equal round and reactive. Extraocular motions intact. No scleral icterus. No injection or drainage. ENT: Nose without bleeding, purulent drainage or septal hematoma. Throat without erythema, tonsillar hypertrophy or exudate. Uvula midline. Airway patent. NECK: Trachea midline. No JVD or lymphadenopathy. Supple, nontender, no meningeal signs. CARDIOVASCULAR: Regular rate and rhythm without murmurs, gallops, or rubs. RESPIRATORY: Clear to auscultation. Breath sounds equal bilaterally. No wheezes, rales, or rhonchi. Pain to palpation right lower lip some lateral aspect. Pain to lateral chest wall compression. GASTROINTESTINAL: Abdomen soft, non-tender, nondistended. No hepato- splenomegaly, or palpable masses. No guarding. active bowel sounds EXTREMITIES: No clubbing, cyanosis, or edema. No joint tenderness, effusion, or edema noted. BACK: Nontender without deformity or crepitance. No flank tenderness. NEURO: AOx3. SKIN: No rash or erythema. No erythema ecchymosis or skin abnormality right lower ribs Initial Vital Signs Initial Vital Signs: Vital Signs Temperature 98.5 F 07/15/18 19:17 Pulse Rate 76 07/15/18 19:17 Respiratory Rate 18 07/15/18 19:17 Blood Pressure 116/77 07/15/18 19:17 Pulse Oximetry 97 07/15/18 19:17 <Aroldo Huber DO - Last Filed: 07/16/18 03:16> Initial Vital Signs Initial Vital Signs: Vital Signs Temperature 98.5 F 07/15/18 19:17 Pulse Rate 76 07/15/18 19:17 Respiratory Rate 18 07/15/18 19:17 Blood Pressure 116/77 07/15/18 19:17 Pulse Oximetry 97 07/15/18 19:17 Course <ERIK Xavier - Last Filed: 07/15/18 22:26> Orders Ordered: ED Orders 07/15/18 19:55 XR ribs RT min 3V w CXR1V Stat Discontinued Medications Hydrocodone Bitart/Acetaminophen ([place] 5/325) 1 tab PO NOW ONE Stop: 07/15/18 22:17 Last Admin: 07/15/18 22:22 Dose: 1 tab Lidocaine (Lidoderm) 1 each TOP NOW ONE Stop: 07/15/18 21:44 Last Admin: 07/15/18 21:59 Dose: Not Given Ondansetron HCl (Zofran Odt) 4 mg SL NOW ONE Stop: 07/15/18 22:22 Last Admin: 07/15/18 22:22 Dose: 4 mg Vital Signs - 8 hr 07/15/18 19:17 07/15/18 22:36 Temperature 98.5 F Pulse Rate 76 69 Respiratory Rate 18 15 Blood Pressure 116/77 109/69 Pulse Oximetry 97 99 <Aroldo Huber DO - Last Filed: 07/16/18 03:16> Orders Ordered: ED Orders 07/15/18 19:55 XR ribs RT min 3V w CXR1V Stat Discontinued Medications Hydrocodone Bitart/Acetaminophen ([place] 5/325) 1 tab PO NOW ONE Stop: 07/15/18 22:17 Last Admin: 07/15/18 22:22 Dose: 1 tab Lidocaine (Lidoderm) 1 each TOP NOW ONE Stop: 07/15/18 21:44 Last Admin: 07/15/18 21:59 Dose: Not Given Ondansetron HCl (Zofran Odt) 4 mg SL NOW ONE Stop: 07/15/18 22:22 Last Admin: 07/15/18 22:22 Dose: 4 mg Vital Signs - 8 hr 07/15/18 19:17 07/15/18 22:36 Temperature 98.5 F Pulse Rate 76 69 Respiratory Rate 18 15 Blood Pressure 116/77 109/69 Pulse Oximetry 97 99 MDM - Recheck/Abnormal Lab/Rx <ERIK Xavier - Last Filed: 07/15/18 22:26> [facility] Narrative Medical decision making narrative: The patient is a 32-year-old female who presents with right rib pain after initially falling into a car seat on 07/01. She initially had normal x-rays, requested more due to continued pain, but she is not taking anything for pain at home. She states she cannot take NSAIDs as they gave her urinary tract infections. she does not want to take any muscle relaxers at this point time as she states they do not work. Respiratory therapy attempted to give her incentive spirometry teaching, but the patient declined. X-ray illustrated 5th right rib fracture. Patient was given prescription of lidocaine, [place] as well as Zofran. She states she is okay with hydrocodone despite her allergies. Discussed at length follow up with primary care provider. Discussed coming back to the emergency department for any acute concerns. Discharge Plan Departure Patient Disposition: Home Clinical Impression: Closed rib fracture Qualifiers: Encounter type: initial encounter Rib fracture type: single rib Laterality: left Qualified Code(s): S22.32XA - Fracture of one rib, left side, initial encounter for closed fracture Discharge Date/Time: 07/15/18 22:38 Interventions: ED Discharge Assessment Last Done: 07/15/18 22:36 Instructions: DI for Rib Fracture Activity Restrictions/Additional Instructions: Unfortunately you have a fractured rib. I have given you a prescription for lidocaine patches for pain. If they are cost prohibitive or you would like something tonight, 4% patches are available [id number]. I have also given you a small prescription of [place] as well as Zofran for nausea. Please continue to take deep breaths they did not develop pneumonia. Please follow up with primary care provider soon as possible. Please continue to take Tylenol or [id number] medications as needed for pain. come back to the emergency d epartment for any acute concerns such as chest pain or shortness of breath. Prescriptions: New lidocaine 5 % adhesive patch,medicated 1 patch TOP DAILY Qty: 15 RF: 0 hydrocodone-acetaminophen 5-325 mg tablet 1 tab PO Q4-6H PRN (Reason: pain) Qty: 7 RF: 0 ondansetron 4 mg tablet,disintegrating 4 mg PO TID-QID PRN (Reason: nausea and vomiting) Qty: 20 RF: 0 No Action Ondansetron (Zofran Odt) tablet 4 mg PO PRN PRN (Reason: Nausea) Qty: 0 RF: 0 alprazolam [Xanax] 0.25 mg tablet 0.25 mg PO BID-TID PRN (Reason: anxiety) Qty: 10 RF: 0 ranitidine HCl [Acid Sales Engineering Manager (ranitidine)] 150 mg Tablet 150 mg PO PRN PRN (Reason: Acid Reflux) RF: 0 ondansetron 4 mg tablet,disintegrating 4 mg PO QID PRN (Reason: nausea and vomiting) Qty: 14 RF: 2 hydrocodone-acetaminophen 5-325 mg tablet 1 tab PO Q4-6H PRN (Reason: pain) Qty: 10 RF: 0 albuterol sulfate [ProAir HFA] 90 mcg/actuation HFA aerosol inhaler 1 puff INHALATION Q6H PRN (Reason: Adequate Ventilation) RF: 0 Referrals: Chico Marcano [Primary Care Provider] - <Aroldo Huber DO - Last Filed: 07/16/18 03:16> Cosign ED Attending Vinceature Attestation: I was immediately available in the department for consultation. Documentation has been reviewed. I agree with assessment and plan.
--- NOTE | 2018-07-15 21:59 | PC.NURSE ---
Lidocaine patch not in night pharmacy
[2018-07-15] MEDS: ONDANSETRON 4 MG ODT SL (22:22)
[2018-07-15] MEDS: HYDROCODONE/ACET 5/325 TABLET 1 TAB PO (22:22)
[2018-07-15 22:36] VITALS: BP 109/69; PULSE 69; RESP 15; O2SAT 99
== END 2018-07-15 22:38 | disposition home or self-care (01) ==
PROVIDERS: Emergency Provider Nurse Practitioner Family; PCP Physician Assistant Medical
DX: S22.32XA Fracture of one rib, left side, initial encounter for closed fracture (principal); W19.XXXA Unspecified fall, initial encounter
CPT/HCPCS: 71101; 99282; 99283

== ENCOUNTER → 2019-04-07 13:44 | Outpatient (CLI) | payer OTHER, MEDICAID, SELFPAY ==
[2018-05-17 14:46] VITALS: BMI 19.7
--- NOTE | 2019-04-07 | DI.MRI.S_ITS ---
PROCEDURE: MR WRIST RT W CON INDICATIONS: Pain of ulnar side of wrist TECHNIQUE: After the administration of 3-4 mL of dilute intra-articular Gadolinium contrast into the radiocarpal compartment, coronal T1 spin echo with fat saturation and T2 fast spin echo with fat saturation, axial T1 spin echo and T2 fast spin echo with fat saturation, sagittal T1 spin echo with and without fat saturation through the wrist. COMPARISON: Outside Film, CR, XR WRIST 3+ VIEWS RIGHT, 01/10/2019, 16:05. FINDINGS: Image quality: There is mild motion artifact. Bones and cartilage: The carpal bones are normally aligned. No fractures. There is mild bone marrow edema along the dorsal aspect of the distal ulna suggestive of a bone contusion. No evidence for avascular necrosis. Overlying cartilage surfaces appear grossly preserved. Carpal ligaments: The scapholunate and lunotriquetral ligaments demonstrate no full-thickness tears. No gadolinium extravasation into the mid-carpal compartment. The radioscaphocapitate and radiolunotriquetral ligaments appear intact. The dorsal intercarpal and radiotriquetral ligaments appear intact. On sagittal images, the pisohamate ligament appears intact. Triangular fibrocartilage complex: There is a small perforation of the triangular fibrocartilage adjacent to its radial attachment. The styloid and foveal lamina appear intact. There is gadolinium extravasation into the distal radioulnar joint. The adjacent meniscal homolog appears mildly attenuated in signal which may reflect degeneration. The ulnar collateral ligament appears intact. The extensor carpi ulnaris tendon is normal in location and morphology. Tendons and soft tissues: The carpal tunnel structures appear normal, including the median nerve. The ulnar nerve appears normal within Guyon's canal. All six extensor tendon compartments demonstrate normal morphology, without pathologic tendon sheath fluid. No soft tissue ganglion cysts. IMPRESSION: 1. Small perforation of the triangular fibrocartilage adjacent to its radial attachment. 2. Small focal bone contusion along the dorsal aspect of the distal ulna. No fractures. Dictated by: Amos Jara M.D. on 04/07/2019 at 16:54 Approved by: Amos Jara M.D. on 04/07/2019 at 17:02
--- NOTE | 2019-04-07 | DI.RAD.S_ITS ---
PROCEDURE: FL WRIST INJECTION MR/CT RT INDICATIONS: Pain of ulner side of wrist TECHNIQUE: After informed consent had been obtained, the wrist was examined fluoroscopically, and a site chosen for injection of the radiocarpal compartment from a dorsal approach. Skin was prepped and draped in a sterile fashion and 1% lidocaine infiltrated from the skin down to the articular surface. A hypodermic needle was then introduced into the articular space and a modest amount of contrast medium was instilled confirming intra-articular needle tip placement. This was followed by approximately 4 mL of a dilute gadolinium solution. Needle was removed and dressing was applied. The patient experienced no complications throughout the procedure and left the fluoroscopic suite in no apparent distress. FINDINGS: A single fluoroscopic spot image demonstrates intra-articular location to injected iodinated contrast. IMPRESSION: Successful fluoroscopic-guided administration of dilute Gadolinium solution for wrist MR arthrogram. Dictated by: Sachin Lo M.D. on 04/07/2019 at 15:34 Approved by: Sachin Lo M.D. on 04/07/2019 at 15:35
== END ==
PROVIDERS: PCP Physician Assistant Medical; Visit Provider Orthopaedic Surgery
DX: M25.531 Pain in right wrist (principal); S60.211A Contusion of right wrist, initial encounter
CPT/HCPCS: 20605; 73222; 77002

== ENCOUNTER → 2019-07-28 09:00 | Outpatient (CLI) | payer OTHER, MEDICAID, SELFPAY ==
[2018-05-17 14:46] VITALS: BMI 19.7
--- NOTE | 2019-07-28 | DI.RAD.S_ITS ---
PROCEDURE: FL WRIST INJECTION MR/CT RT INDICATIONS: Right wrist pain TECHNIQUE: After informed consent had been obtained, the wrist was examined fluoroscopically, and a site chosen for injection of the radiocarpal compartment from a dorsal approach. Skin was prepped and draped in a sterile fashion and 1% lidocaine infiltrated from the skin down to the articular surface. A hypodermic needle was then introduced into the articular space and a modest amount of contrast medium was instilled confirming intra-articular needle tip placement. This was followed by approximately 4 mL of a dilute gadolinium solution. Needle was removed and dressing was applied. The patient experienced no complications throughout the procedure and left the fluoroscopic suite in no apparent distress. FINDINGS: A single fluoroscopic spot image demonstrates intra-articular location to injected iodinated contrast. IMPRESSION: Successful fluoroscopic-guided administration of dilute Gadolinium solution for wrist MR arthrogram. Dictated by: Sarah Mckay M.D. on 07/28/2019 at 10:35 Approved by: Sarah Mckay M.D. on 07/28/2019 at 10:36
--- NOTE | 2019-07-28 | DI.MRI.S_ITS ---
PROCEDURE: MR WRIST RT W CON INDICATIONS: Right wrist pain TECHNIQUE: After the administration of 3-4 mL of dilute intra-articular Gadolinium contrast into the radiocarpal compartment, coronal T1 spin echo with fat saturation and T2 fast spin echo with fat saturation, axial T1 spin echo and T2 fast spin echo with fat saturation, sagittal T1 spin echo with and without fat saturation through the wrist. COMPARISON: [facility], MR, MR WRIST RT W CON, 04/07/2019, 14:12. FINDINGS: Image quality: Diagnostic. Bones: No acute fracture, dislocation, or suspicious osseous lesion is evident involving the osseous structures of the right wrist. There is prominent marrow edema evident involving the lunate, which is new since the previous study. No associated fracture is appreciated. Bony alignment of the carpal bones is within normal limits. Mild ulnar positive variance is present by approximately 1 mm. Otherwise, the alignment of the distal radial ulnar joint is within normal limits. There is adequate distention of the radiocarpal joint with the injected contrast. Contrast material is seen extending into the distal radial ulnar joint. However, no contrast is evident extending into the midcarpal joint. No radiopaque foreign bodies are identified. Carpal ligaments: The scapholunate and lunotriquetral ligaments appear intact, without gadolinium extravasation into the mid-carpal compartment. The radioscaphocapitate and radiolunotriquetral ligaments appear intact. The arcuate ligament and short radiolunate ligament also appear normal. The dorsal intercarpal and radiotriquetral ligaments appear intact. On sagittal images, the pisohamate ligament appears intact. Triangular fibrocartilage complex: There has been moderate interval increase in size of the perforating tear along the central margin of the triangular fibrocartilage disc, which now measures approximately 3 mm (previously measuring 1 mm). The meniscal homolog is intact. Extensor carpi ulnaris tendon is intact, but demonstrates mild thickening and increased signal near the level of the ulnar styloid process. Tendons and soft tissues: The carpal tunnel structures appear normal, including the median nerve. The ulnar nerve appears normal within Guyon's canal. All six extensor tendon compartments demonstrate normal morphology, without pathologic tendon sheath fluid. No soft tissue ganglion cysts. IMPRESSION: 1. Interval increase in size of the triangular fibrocartilage disc tear. 2. Mild extensor carpi ulnaris tendinopathy. 3. Interval development of moderate marrow edema involving the lunate, which is of uncertain etiology and may represent a bone contusion. However, early avascular necrosis cannot be completely excluded, particularly given slight ulnar positive variance. An MRI of the wrist with intravenous contrast may be helpful for better evaluation, if indicated. Followup imaging is recommended. 4. No evidence of a full-thickness tear involving the intrinsic or extrinsic ligaments of the wrist. Dictated by: Rito Torrez M.D. on 07/28/2019 at 10:12 Approved by: Rito Torrez M.D. on 07/28/2019 at 10:37
== END ==
PROVIDERS: PCP Family Medicine; Referring Provider Orthopaedic Surgery; Visit Provider Orthopaedic Surgery
DX: M25.531 Pain in right wrist (principal); S63.591A Other specified sprain of right wrist, initial encounter
CPT/HCPCS: 20605; 73222; 77002

== ENCOUNTER → 2020-09-16 08:39 | Outpatient (CLI) | payer OTHER, MEDICAID, SELFPAY ==
[2018-05-17 14:46] VITALS: BMI 19.7
--- NOTE | 2020-09-16 08:48 | DI.RAD.S_ITS ---
PROCEDURE: FL SHOULDER INJECTION MR/CT LT INDICATIONS: LEFT SHOULDER COMPARISON: None. TECHNIQUE: The indications, alternatives, benefits, risks, and complications of the procedure were explained to the patient. Written informed consent was obtained and placed in the chart. The shoulder was examined fluoroscopically and a site for needle placement chosen for entry into the glenohumeral joint from an anterior approach. The skin was prepped and draped in a sterile fashion, and 1% lidocaine infiltrated from skin down to joint capsule. A spinal needle was inserted into the glenohumeral joint, and a small amount of iodinated contrast media injected to confirm intra-articular placement of the needle tip. This was followed by approximately 12 mL dilute solution of a gadolinium containing MR contrast agent. The needle was removed and a dressing was applied. The patient was given postprocedural instructions and sent to the MR suite for MR imaging. FINDINGS: A single fluoroscopic spot image demonstrates intra-articular location of injected iodinated contrast. IMPRESSION: Successful fluoroscopically guided administration of dilute Gadolinium solution into the shoulder joint for MR arthrogram. Dictated by: Bertha Schilling MD, PhD on 09/16/2020 at 10:10 Approved by: Bertha Schilling MD, PhD on 09/16/2020 at 10:11
--- NOTE | 2020-09-16 08:48 | DI.MRI.S_ITS ---
PROCEDURE: MR SHOULDER LT W CON INDICATIONS: LEFT SHOULDER TECHNIQUE: After the administration of 12 mL of dilute intra-articular Gadolinium contrast, oblique coronal T1 and T2 spin echo with fat saturation, oblique sagittal T1 spin echo with and without fat saturation, oblique sagittal T2 fast spin echo with fat saturation, axial T1 spin echo with fat saturation through the shoulder. COMPARISON: [facility], CR, XR SHOULDER 2+ VIEWS LEFT, 06/15/2020, 6:54. FINDINGS: Image quality: Excellent. Rotator cuff: Tendinosis and low to moderate grade articular and bursal surface partial thickness tear involving distal supraspinatus is seen at its insertion on the humeral head extending to musculotendinous junction. There is focal full-thickness perforation involving most anterior fibers of distal supraspinatus at its insertion on the humeral head with up to 1.3 centimeter medial retraction of torn tendon fibers and fluid-filled gap measures 7 mm in AP dimension. Tendinosis and low-grade articular surface partial-thickness tear involving distal infraspinatus is seen. Subscapularis tendon is intact. No rotator cuff muscle atrophy on sagittal images. Bones and bursae: Mild edema involving distal clavicle is noted near acromioclavicular joint which may represent mild bony contusion. No fracture or dislocation. Possible postsurgical widening of acromioclavicular joint, suggest clinical correlation. No AC joint fluid is seen. No intra-articular loose body. Capsule and soft tissues: The labrum and glenohumeral ligaments appear intact. The long head of the biceps tendon demonstrates normal location and morphology. The rotator interval appears normal, without fibrosis. The coracohumeral ligament is of normal thickness. No intra-articular bodies. IMPRESSION: 1. Tendinosis and low to moderate grade articular and bursal surface partial thickness tear involving distal supraspinatus extending to musculotendinous junction. Focal full-thickness perforation involving most anterior fibers of distal supraspinatus at its insertion on the humeral head with up to 1.3 cm medial retraction of torn tendon fibers and fluid-filled gap measures 7 mm in AP dimension. Tendinosis and low-grade articular surface partial-thickness tear involving distal infraspinatus. 2. Possible postsurgical widening of acromioclavicular joint suggest clinical correlation. Mild edema involving distal clavicle and may represent mild contusion. No fracture or dislocation. No intra-articular loose body. 3. No evidence of focal labral tear. Dictated by: Farhat Perez M.D. on 09/16/2020 at 10:09 Approved by: Farhat Perez M.D. on 09/16/2020 at 10:20
== END ==
PROVIDERS: PCP Family Medicine; Referring Provider Orthopaedic Surgery; Visit Provider Orthopaedic Surgery
DX: S46.012A Strain of muscle(s) and tendon(s) of the rotator cuff of left shoulder, initial encounter (principal); M25.512 Pain in left shoulder; X58.XXXA Exposure to other specified factors, initial encounter
CPT/HCPCS: 23350; 73222; 77002

== ENCOUNTER → 2021-10-27 17:54 | Outpatient (CLI) | payer OTHER, MEDICAID, SELFPAY ==
[2018-05-17 14:46] VITALS: BMI 19.7
--- NOTE | 2021-10-27 17:57 | DI.MRI.S_ITS ---
PROCEDURE: MR KNEE LT WO CON INDICATIONS: Pain in left knee TECHNIQUE: Noncontrast sagittal PD fast spin echo and T2 fast spin echo with fat saturation, sagittal 3-D FLASH with fat saturation; coronal T1 spin echo and PD fast spin echo with fat saturation, and axial PD fast spin echo with fat saturation through the knee. COMPARISON: [facility], CR, XR KNEE ARTHRITIC SERIES LT, 10/26/2021, 8:29. [facility], MR, MR KNEE LT WO CON, 08/24/2017, 18:51. FINDINGS: Image quality: Excellent. Anterior Cruciate Ligament: Intact. Posterior Cruciate Ligament: Intact. Medial Collateral Ligament: Intact. Lateral Collateral Ligament: Intact. Medial Meniscus: Intact. Lateral Meniscus: Small focus of micrometallic artifact is seen adjacent to the body of the lateral meniscus with associated signal void and pile up. No discrete meniscal tear is seen. Medial and Lateral Tendons: The semimembranosus tendon insertions and meniscocapsular junction appear intact. Visualized portions of the pes anserinus tendons appear normal. No abnormal bursal fluid. The long and short heads of the biceps femoris tendon appear intact. The popliteus tendon appears intact. No signs of posterolateral corner injury. Iliotibial band appears normal. Anterior Structures: The quadriceps and patellar tendons appear intact. 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 The tibial tubercle-trochlear groove distance is within normal limits. No edema in the infrapatellar fat pad. Bones: No acute trabecular bone injury or fracture. Small nonspecific foci of micrometallic artifact are seen at the lateral tibial plateau and adjacent to the proximal tibiofibular articulation, as well as along the infrapatellar fossa adjacent to the femoral trochlea, most likely related to prior arthroscopy. Medial Femorotibial Cartilage: Intact. Lateral Femorotibial Cartilage: Intact. Patellofemoral Cartilage: Intact. Soft Tissues: A physiologic amount of joint fluid is present. Trace medial popliteal cyst. The musculature surrounding the knee is normal in bulk. A lobular pericapsular ganglion cyst is seen extending superiorly from the posterior intercondylar notch in the region of the medial gastrocnemius muscle origin measuring approximately 2.9 x 1.7 x 1.8 cm. IMPRESSION: 1. No acute trabecular bone injury. Intact cruciate and collateral ligament. No meniscal tear or focal cartilage defect. 2. Lobular pericapsular ganglion cyst is seen posterior to the distal femur measuring up to 2.9 x 1.7 x 1.8 cm. 3. Mildly congenitally shallow trochlear groove without patellar tilting or subluxation. The tibial tubercle-trochlear groove distance is within normal limits. Dictated by: Rebel Lala M.D. on 10/28/2021 at 8:17 Approved by: Rebel Lala M.D. on 10/28/2021 at 8:39
== END ==
PROVIDERS: PCP Family Medicine; Referring Provider Registered Nurse; Visit Provider Registered Nurse
DX: M76.52 Patellar tendinitis, left knee (principal); M67.462 Ganglion, left knee; M25.562 Pain in left knee
CPT/HCPCS: 73721

== ENCOUNTER 2022-04-17 10:04 | Emergency (ER) | payer OTHER, MEDICAID, SELFPAY ==
[2018-05-17 14:46] VITALS: BMI 19.7
[2022-04-17 10:20] VITALS: BP 113/71; PULSE 63; RESP 16; TEMP 36.1; O2SAT 100; BMI 17.3
--- NOTE | 2022-04-17 10:32 | DI.RAD.S_ITS ---
PROCEDURE: XR CHEST 1V INDICATIONS: chest pain TECHNIQUE: One view of the chest was acquired. COMPARISON: [facility], , CHEST 2 VIEW, 01/28/2009, 21:11. FINDINGS: Surgical changes and devices: None. Lungs and pleura: Lungs are clear. No pleural effusions or pneumothorax. Mediastinum: Mediastinal contours appear normal. Heart size is normal. Bones and chest wall: No suspicious bony lesions. Overlying soft tissues appear unremarkable. IMPRESSION: No evidence acute pulmonary process. Dictated by: Jae Cole M.D. on 04/17/2022 at 10:54 Approved by: Jae Cole M.D. on 04/17/2022 at 10:55
--- NOTE | 2022-04-17 10:50 | ED_ITS ---
HPI - Chest Pain General Chief Complaint: Chest Pain Stated Complaint: pain in chest, sternum hurts, cough Time Seen by Provider: 04/17/22 10:35 History of Present Illness HPI narrative: Patient is a healthy 36-year-old female who presents with a variety of symptoms. She reports that she is had about a 12 lb weight loss since . She has night sweats. Kids have been sick off and on for couple of weeks. However last week she and her both noticed some lumps in her breasts bilaterally. There painful to touch. She has had a sore throat little bit of a cough. No abdominal pain nausea vomiting painful or frequent urination. No other pain. She is not had a mammogram. No cancer history that she knows of. She did have open heart surgery for what was thought to be in abnormal valve when she was in her 20s however it turned out to be a false alarm Related Data Home Medications Medication Instructions Recorded Confirmed Ondansetron (Zofran Odt) 4 mg PO PRN PRN Nausea ##0 08/18/10 08/15/18 albuterol sulfate 90 mcg/actuation 1 puff inhalation Q6H PRN Adequate 12/27/17 08/15/18 aerosol inhaler (ProAir HFA) Ventilation ranitidine HCl 150 mg tablet (Acid 150 mg PO PRN PRN Acid Reflux 05/18/18 08/15/18 Test Bore Helper (ranitidine)) Previous Rx's Medication Instructions Recorded alprazolam 0.25 mg tablet (Xanax) 0.25 mg PO BID-TID PRN anxiety #10 04/30/18 tabs ondansetron 4 mg disintegrating 4 mg PO QID PRN nausea and 05/18/18 tablet vomiting #14 tabs hydrocodone 5 mg-acetaminophen 325 1 tab PO Q4-6H PRN pain #10 tabs 07/01/18 mg tablet hydrocodone 5 mg-acetaminophen 325 1 tab PO Q4-6H PRN pain #7 tabs 07/15/18 mg tablet lidocaine 5 % topical patch 1 patch topical DAILY #15 ea 07/15/18 ondansetron 4 mg disintegrating 4 mg PO TID-QID PRN nausea and 07/15/18 tablet vomiting #20 tabs hydrocodone 5 mg-acetaminophen 325 1 tab PO Q6H PRN pain #10 tabs 04/17/22 mg tablet hydrocodone 5 mg-acetaminophen 325 1 tab PO Q6H PRN pain #10 tabs 04/17/22 mg tablet Allergies Allergy/AdvReac Type Severity Reaction Status Date / Time amoxicillin Allergy Intermediate Rash, Verified 04/17/22 10:24 throat was tingly azithromycin Allergy Intermediate Gastrointestinal Verified 04/17/22 10:24 Upset ciprofloxacin Allergy Intermediate Gastrointestinal Verified 04/17/22 10:24 Upset Penicillins Allergy Intermediate Rash Verified 04/17/22 10:24 hydromorphone Allergy Mild Flushing Verified 04/17/22 10:24 ibuprofen Allergy Mild Kidney Verified 04/17/22 10:24 infection Pertussis Vaccines Allergy Unknown Seizure Verified 04/17/22 10:24 [PERTUSSIS VACCINES] gluten AdvReac Mild Stomach Verified 04/17/22 10:24 pain, nausea, headache nickel AdvReac Mild Irritation/ Verified 04/17/22 10:24 redness Review of Systems Review of Systems ROS Unobtainable: All systems reviewed & are unremarkable except as noted in HPI and below Patient History Medical History (Updated 04/17/22 @ 13:36 by Veronica Stephens DO) Asthma Surgical History H/O exploratory laparotomy H/O left knee surgery History of open heart surgery History of surgery S/P laparoscopic supracervical hysterectomy (05/17/18) Social History household members: spouse and children Smoking Status: Former smoker Smoking Status: Former smoker alcohol intake frequency: 0-2 drinks per day Substance Use Type: marijuana Exam Initial Vital Signs Initial Vital Signs: Vital Signs Temperature 97 F L 04/17/22 10:20 Pulse Rate 63 04/17/22 10:20 Respiratory Rate 16 04/17/22 10:20 Blood Pressure 113/71 04/17/22 10:20 Pulse Oximetry 100 04/17/22 10:20 Oxygen Delivery Method 04/17/22 10:20 GENERAL: Thin 36-year-old female HEENT: Head atraumatic,EOMI, pupils reactive, face symmetric, no cervical lymph node CARDIOVASCULAR: Regular rate and rhythm without murmurs, rubs or gallops. RESPIRATORY: Breath sounds equal bilaterally, no wheezes rales or rhonchi. BREAST: Right breast 12:00 p.m. 1 cm lymph node like swelling painful to touch no erythema no lymph nodes in axilla Left breast 12:00 p.m. 1 cm painful lymph node like swelling non erythematous axilla no abnormality ABDOMEN: Soft, nontender. Normoactive bowel sounds all 4 quadrants. No guard ing or rebound. EXTREMITIES: Normal range of motion, no clubbing or edema. Neurovascularly intact NEUROLOGICAL: Alert and oriented x4.Normal gait and speech. SKIN: Warm, dry, no laceration, no petechiae, no rashes or lesions. Course Orders Ordered: ED Orders 04/17/22 10:32 XR chest 1V Stat EKG-12 Lead Stat 04/17/22 11:00 CT chest abd pel w con Stat Covid-19 + FLU A/B + RSV - PCR Stat 04/17/22 11:44 Complete Blood Count AUTO DIFF Stat Comprehensive Metabolic Panel Stat Lactate (Lactic Acid) Stat Lipase Stat Magnesium Stat Partial Thromboplastin Time Stat Procalcitonin Stat Prothrombin Time INR Stat TSH [Thyroid Stimulating Hormone] Stat Troponin & CK Cardiac Panel Stat 04/17/22 13:20 Blood Culture Stat 04/17/22 13:25 Consult to PATIENT BILLER - Department Helper Stat Vital Signs Vital signs: Vital Signs - 8 hr 04/17/22 13:54 Pulse Rate 64 Blood Pressure 124/63 Pulse Oximetry 98 Oxygen Delivery Method Room Air MDM - Chest Pain Lab Data Result diagrams: 04/17/22 11:44 04/17/22 11:44 Labs: Lab Results 04/17/22 04/17/22 04/17/22 Range/Units 11:00 11:44 11:44 WBC 6.6 (4.5-11.0) X10^3/uL RBC 3.94 L (4.0-5.2) X10^6/uL Hgb 12.2 (12.0-16.0) g/dL Hct 35.5 L (36-46) % MCV 90.0 (80-100) fL MCH 30.9 (26-34) PG MCHC 34.3 (30-36) % RDW 12.1 (11.6-14.8) % Plt Count 229 (150-400) X10^3/uL Neut % (Auto) 68.1 (50-75) % Lymph % (Auto) 20.6 L (25-40) % [place] % (Auto) 8.0 (3-14) % Eos % (Auto) 2.5 (2-4) % Baso % (Auto) 0.8 (0-2) % Neut # (Auto) 4500 (6319-5092) /uL Lymph # (Auto) 1400 (2297-9486) /uL [place] # (Auto) 500 (0-900) /uL Eos # (Auto) 200 (0-450) /uL Baso # (Auto) 100 (0-100) /uL PT 11.7 (10.1-12.7) SECONDS INR 1.0 (0.9-1.3) APTT 28 (26-36) SECONDS Sodium (137-145) mmol/L Potassium (3.4-5.1) mmol/L Chloride (98-107) mmol/L Carbon Dioxide (22-32) mmol/L BUN (7-17) mg/dL Creatinine (0.52-1.04) mg/dL Estimated GFR (>60) mL/min BUN/Creatinine Ratio (6-22) Glucose (70-100) mg/dL Lactate (0.7-2.1) mmol/L Calcium (8.4-10.2) mg/dL Magnesium (1.6-2.3) mg/dL Total Bilirubin (0.2-1.3) mg/dL AST (14-36) IU/L ALT (<35) IU/L Alkaline Phosphatase (38-126) U/L Total Creatine Kinase (30-135) U/L CK-MB (CK-2) CK-MB (CK-2) Rel Index Troponin I (0.01-0.034) ng/mL Total Protein (6.3-8.2) g/dL Albumin (3.5-5.0) g/dL Globulin (1.7-4.1) g/dL Albumin/Globulin Ratio (1.0-2.8) Lipase (23-300) U/L Procalcitonin (<0.5) ng/mL TSH (0.47-4.68) uIU/mL SARS-CoV-2 (PCR) Negative (Negative) Influenza A (RT-PCR) Flu a negative (NEGATIVE) Influenza B (RT-PCR) Flu b negative (NEGATIVE) RSV (PCR) Negative (Negative) 04/17/22 04/17/22 04/17/22 Range/Units 11:44 11:44 11:44 WBC (4.5-11.0) X10^3/uL RBC (4.0-5.2) X10^6/uL Hgb (12.0-16.0) g/dL Hct (36-46) % MCV (80-100) fL MCH (26-34) PG MCHC (30-36) % RDW (11.6-14.8) % Plt Count (150-400) X10^3/uL Neut % (Auto) (50-75) % Lymph % (Auto) (25-40) % [place] % (Auto) (3-14) % Eos % (Auto) (2-4) % Baso % (Auto) (0-2) % Neut # (Auto) (9866-4044) /uL Lymph # (Auto) (6547-7472) /uL [place] # (Auto) (0-900) /uL Eos # (Auto) (0-450) /uL Baso # (Auto) (0-100) /uL PT (10.1-12.7) SECONDS INR (0.9-1.3) APTT (26-36) SECONDS Sodium 139 (137-145) mmol/L Potassium 4.0 (3.4-5.1) mmol/L Chloride 104 (98-107) mmol/L Carbon Dioxide 29 (22-32) mmol/L BUN 11 (7-17) mg/dL Creatinine 0.68 (0.52-1.04) mg/dL Estimated GFR > 60 (>60) mL/min BUN/Creatinine Ratio 16.2 (6-22) Glucose 87 (70-100) mg/dL Lactate 0.9 (0.7-2.1) mmol/L Calcium 9.2 (8.4-10.2) mg/dL Magnesium 1.9 (1.6-2.3) mg/dL Total Bilirubin 0.5 (0.2-1.3) mg/dL AST 28 (14-36) IU/L ALT 18 (<35) IU/L Alkaline Phosphatase 47 (38-126) U/L Total Creatine Kinase 88 (30-135) U/L CK-MB (CK-2) TNP CK-MB (CK-2) Rel Index TNP Troponin I 0.015 (0.01-0.034) ng/mL Total Protein 7.7 (6.3-8.2) g/dL Albumin 4.4 (3.5-5.0) g/dL Globulin 3.3 (1.7-4.1) g/dL Albumin/Globulin Ratio 1.3 (1.0-2.8) Lipase 187 (23-300) U/L Procalcitonin (<0.5) ng/mL TSH 0.894 (0.47-4.68) uIU/mL SARS-CoV-2 (PCR) (Negative) Influenza A (RT-PCR) (NEGATIVE) Influenza B (RT-PCR) (NEGATIVE) RSV (PCR) (Negative) 04/17/22 Range/Units 11:44 WBC (4.5-11.0) X10^3/uL RBC (4.0-5.2) X10^6/uL Hgb (12.0-16.0) g/dL Hct (36-46) % MCV (80-100) fL MCH (26-34) PG MCHC (30-36) % RDW (11.6-14.8) % Plt Count (150-400) X10^3/uL Neut % (Auto) (50-75) % Lymph % (Auto) (25-40) % [place] % (Auto) (3-14) % Eos % (Auto) (2-4) % Baso % (Auto) (0-2) % Neut # (Auto) (3962-3858) /uL Lymph # (Auto) (0688-1161) /uL [place] # (Auto) (0-900) /uL Eos # (Auto) (0-450) /uL Baso # (Auto) (0-100) /uL PT (10.1-12.7) SECONDS INR (0.9-1.3) APTT (26-36) SECONDS Sodium (137-145) mmol/L Potassium (3.4-5.1) mmol/L Chloride (98-107) mmol/L Carbon Dioxide (22-32) mmol/L BUN (7-17) mg/dL Creatinine (0.52-1.04) mg/dL Estimated GFR (>60) mL/min BUN/Creatinine Ratio (6-22) Glucose (70-100) mg/dL Lactate (0.7-2.1) mmol/L Calcium (8.4-10.2) mg/dL Magnesium (1.6-2.3) mg/dL Total Bilirubin (0.2-1.3) mg/dL AST (14-36) IU/L ALT (<35) IU/L Alkaline Phosphatase (38-126) U/L Total Creatine Kinase (30-135) U/L CK-MB (CK-2) CK-MB (CK-2) Rel Index Troponin I (0.01-0.034) ng/mL Total Protein (6.3-8.2) g/dL Albumin (3.5-5.0) g/dL Globulin (1.7-4.1) g/dL Albumin/Globulin Ratio (1.0-2.8) Lipase (23-300) U/L Procalcitonin 0.04 (<0.5) ng/mL TSH (0.47-4.68) uIU/mL SARS-CoV-2 (PCR) (Negative) Influenza A (RT-PCR) (NEGATIVE) Influenza B (RT-PCR) (NEGATIVE) RSV (PCR) (Negative) Imaging Data Chest x-ray: Radiologist's Impression: XRay Report Signed Patient: Sosa Roberts MR#: [id number] : 1985 Acct:[id number] Age/Sex: 36 / F Date of Service: 04/17/22 Loc: ED Accession Number: [id number] ?? Procedure: XR chest 1V Ordering Provider: Veronica Stephens D.O. PROCEDURE:? XR CHEST 1V ? INDICATIONS:? chest pain ? TECHNIQUE:? One view of the chest was acquired.? ? COMPARISON:? [facility], , CHEST 2 VIEW, 01/28/2009, 21:11. ? FINDINGS:? ? Surgical changes and devices:? None.? ? Lungs and pleura:? Lungs are clear.? No pleural effusions or pneumothorax.? ? Mediastinum:? Mediastinal contours appear normal.? Heart size is normal.? ? Bones and chest wall:? No suspicious bony lesions.? Overlying soft tissues appear unremarkable.? ? IMPRESSION:? No evidence acute pulmonary process. ? ? ? Dictated by: Jae Cole M.D. on 04/17/2022 at 10:54 ? CT scan - chest: Radiologist's Impression: CT Scan Report Signed Patient: Sosa Roberts MR#: [id number] : 1985 Acct:[id number] Age/Sex: 36 / F Date of Service: 04/17/22 Loc: ED Accession Number: [id number] ?? Procedure: CT chest abd pel w con Ordering Provider: Veronica Stephens D.O. PROCEDURE:? CT CHEST ABD PEL W CON ? INDICATIONS:? weight loss, night sweats, bilateral breast lymphnodes ? TECHNIQUE:? After the administration of intravenous contrast, 5 mm thick sections acquired from the lung apices to the symphysis.? 5 mm coronal and sagittal reformats were performed, with additional 7 mm MIP reformats through the lungs.? For radiation dose reduction, the following was used:? automated exposure control, adjustment of mA and/or kV according to patient size.? ? COMPARISON:? None. ? FINDINGS:? Image quality:? Excellent.? ? CHEST:? Lungs and pleura:? No acute airspace opacities.? There are 3 probable small fissural lymph nodes in the major fissure of the right lung.? They each measure approximately 3 mm.? There is a 3 mm subpleural pulmonary nodule in the extreme left lung base.? No pleural effusions or pneumothorax.? Central and peripheral airways appear patent and normal in caliber.? ? Mediastinum:? Heart size is normal.? No pericardial effusion.? No mediastinal or hilar adenopathy by size criteria.? Thoracic aorta and central pulmonary arteries are normal in size.? Esophagus is normal in caliber.? No hiatal hernia.? ? Chest wall:? No axillary or supraclavicular adenopathy by size criteria.? Thyroid gland is unremarkable .? ? ? ABDOMEN:? Solid organs:? Liver is normal in size and enhancement.? Gallbladder is contracted, unremarkable, without calcified stones .? Biliary system is non dilated.? Grant creas enhances normally.? Spleen is normal in size and enhancement.? No adrenal nodules.? Kidneys demonstrate normal size and enhancement, without hydronephrosis.? ? Peritoneum and bowel:? Bowel loops demonstrate normal wall thickness and caliber.? No free fluid or air.? ? Nodes and vessels:? No retroperitoneal or mesenteric adenopathy by size criteria.? Aorta and inferior vena cava are normal in size.? ? Miscellaneous:? No ventral hernias.? ? ? PELVIS:? Genitourinary:? Bladder wall thickness is normal.? ? Miscellaneous:? No inguinal hernias or adenopathy.? Retroverted uterus. ? Bones:? No suspicious bony lesions.? No vertebral body compression fractures.? ? IMPRESSION:? ? 1. No evidence of acute process in the chest, abdomen, and pelvis. ? 2. Multiple pulmonary nodules, all 3 mm or less.? Please see chart below for follow-up recommendations. ? Fleischner Society criteria for SOLID lung nodule followup.? Nodule size (mm)Low-risk patientHigh-risk patient<6 (single or multiple)No routine followup.Optional CT at 12 months. 6-8 (single or multiple)CT at 6-12 months, then optional CT at 18-24 mo.CT at 6-12 months, then CT at 18-24 months.? >8 (single)CT at 3 months, PET-CT, or biopsy. Same as for low-risk pts.? >8 (multiple)CT at 3-6 months, then optional CT at 18-24 mo.CT at 3-6 months, then CT at 18-24 months.? Fleischner Society criteria for SUB-SOLID lung nodule followup.? Solitary pure ground-glass nodules<6 mm (ground glass or part solid)No followup needed.? 6 mm or larger (ground glass)CT at 6-12 months to confirm persistence, then CT every 2 years until 5 years.6 mm or larger (part solid)CT at 3-6 months to confirm persistence, then annual CT until 5 years if unchanged and solid component remains <6 mm.? Multiple sub-solid nodules<6 mmCT at 3-6 months, then CT consider at 2 & 4 years for high risk patients. [address] at 3-6 months. Subsequent management based on most suspicious lesions. Recommendations do not apply to lung cancer screening, patients with immunosuppression, or patients with known primary cancer. ? ? ? Dictated by: Jae Cole M.D. on 04/17/2022 at 12:54 ? ? ECG Data Interpretation: Sinus rhythm rate 47 WI interval 130 QRS 96 QTC 364 changes no T-wave inversions wondering baseline noted MDM Narrative Medical decision making narrative: Patient healthy 36-year-old female presenting today with bilateral breast lumps which are painful weight loss and night sweats. Certainly concern is for some underlying cancer. However a both breast lumps feel like lymph nodes tender to touch both and 12 o'clock position. Blood work is overall reassuring without signs of sepsis. TSH is slightly low at 0.8. CT chest abdomen pelvis does show multiple pulmonary nodules. Unclear if this is infectious or cancerous. At this time she will need close outpatient follow-up. Patient does not have a PCP. Social work consulted to help set up for follow-up with PCP. MDM * differential diagnosis includes but not limited to: Cancer infection lymphadenitis * Prior records reviewed: Previous visits from 2019 * My lab interpretation: Blood work reassuring. CBC is 6.6 without left shift or anemia electrolytes are within normal limits kidney function within normal limits TSH is 0.89 * My imaging interpretation: CT chest abdomen pelvis as above * Clinical Decision Rules/Scores evaluated: None * Independent discussions with: Not * Social Considerations: No PCP, PATIENT BILLER consultation help set up for good follow- up she will need repeat chest CT. * Shared Decision Making: and patient *Disposition: see below, along with detailed discharge instructions that have been reviewed with patient as well as indications for ED re-evaluation and additional outpatient follow up Discharge Plan Departure Patient Disposition: Home Clinical Impression: Pulmonary nodule Instructions: DI for Pulmonary Nodule Activity Restrictions/Additional Instructions: *You have been diagnosed with multiple pulmonary nodules *What to do: At this time I think the lumps in her breasts that you are feeling are probably lymph nodes. I recommend ice 20-30 minutes at a time. You will need a repeat chest CT in 3-6 months with her PCP plus or minus a mammogram. *Continue to take medications as directed --> SENT TO [facility] 1 tablet every 6 hours if needed for severe pain *Follow up with your primary care provider in 2-3 days or call [phone] German Candelaria on April 25 at 11:30 a.m. with check in at 11:15 a.m. *Return to ER if you should have dizziness lightheadedness increasing pain fevers passing out or any new, worsening or concerning symptoms CONTROLLED SUBSTANCE DISCHARGE (Narcotoic/benzodiazepine/Flexeril/Phenergan) 1. You have been prescribed narcotic medications, it does have acetaminophen/Tylenol/paracetamol in it, DO NOT TAKE MORE THAN 4,00mg in 24 h ours of Tylenol. TRAMADOL DOES NOT CONTAIN TYLENOL 2. Please understand that we cannot provide further refills of narcotics, benzodiazepines or controlled substances through the ED and her pain management will need to be through your provider. 3. While on these medications you cannot drive or operate heavy machinery. 4. You cannot sign legal documents or perform any duties such as this. 5. As long as you're taking opiate pain medications he should also be taking a stool softener such as Colace, Dulcolax, MiraLAX or prune juice, to help avoid constipation. Prescriptions: New hydrocodone-acetaminophen 5-325 mg tablet 1 tab PO Q6H PRN (Reason: pain) Qty: 10 0RF hydrocodone-acetaminophen 5-325 mg tablet 1 tab PO Q6H PRN (Reason: pain) Qty: 10 0RF No Action Ondansetron (Zofran Odt) tablet 4 mg PO PRN PRN (Reason: Nausea) Qty: 0 alprazolam [Xanax] 0.25 mg tablet 0.25 mg PO BID-TID PRN (Reason: anxiety) Qty: 10 0RF ranitidine HCl [Acid Test Bore Helper (ranitidine)] 150 mg Tablet 150 mg PO PRN PRN (Reason: Acid Reflux) ondansetron 4 mg tablet,disintegrating 4 mg PO QID PRN (Reason: nausea and vomiting) Qty: 14 2RF hydrocodone-acetaminophen 5-325 mg tablet 1 tab PO Q4-6H PRN (Reason: pain) Qty: 10 0RF lidocaine 5 % adhesive patch,medicated 1 patch TOP DAILY Qty: 15 0RF Rx Instructions: leave on most painful area for 12 hrs hydrocodone-acetaminophen 5-325 mg tablet 1 tab PO Q4-6H PRN (Reason: pain) Qty: 7 0RF ondansetron 4 mg tablet,disintegrating 4 mg PO TID-QID PRN (Reason: nausea and vomiting) Qty: 20 0RF albuterol sulfate [ProAir HFA] 90 mcg/actuation HFA aerosol inhaler 1 puff INHALATION Q6H PRN (Reason: Adequate Ventilation) Referrals: German Kaye ARNP [Advanced Change Management Consultant] - Tate Pabon DO [Primary Care Provider] - Stand Alone Forms: Patient Portal/API
--- NOTE | 2022-04-17 11:00 | DI.CT.S_ITS ---
PROCEDURE: CT CHEST ABD PEL W CON INDICATIONS: weight loss, night sweats, bilateral breast lymphnodes TECHNIQUE: After the administration of intravenous contrast, 5 mm thick sections acquired from the lung apices to the symphysis. 5 mm coronal and sagittal reformats were performed, with additional 7 mm MIP reformats through the lungs. For radiation dose reduction, the following was used: automated exposure control, adjustment of mA and/or kV according to patient size. COMPARISON: None. FINDINGS: Image quality: Excellent. CHEST: Lungs and pleura: No acute airspace opacities. There are 3 probable small fissural lymph nodes in the major fissure of the right lung. They each measure approximately 3 mm. There is a 3 mm subpleural pulmonary nodule in the extreme left lung base. No pleural effusions or pneumothorax. Central and peripheral airways appear patent and normal in caliber. Mediastinum: Heart size is normal. No pericardial effusion. No mediastinal or hilar adenopathy by size criteria. Thoracic aorta and central pulmonary arteries are normal in size. Esophagus is normal in caliber. No hiatal hernia. Chest wall: No axillary or supraclavicular adenopathy by size criteria. Thyroid gland is unremarkable . ABDOMEN: Solid organs: Liver is normal in size and enhancement. Gallbladder is contracted, unremarkable, without calcified stones . Biliary system is non dilated. Pancreas enhances normally. Spleen is normal in size and enhancement. No adrenal nodules. Kidneys demonstrate normal size and enhancement, without hydronephrosis. Peritoneum and bowel: Bowel loops demonstrate normal wall thickness and caliber. No free fluid or air. Nodes and vessels: No retroperitoneal or mesenteric adenopathy by size criteria. Aorta and inferior vena cava are normal in size. Miscellaneous: No ventral hernias. PELVIS: Genitourinary: Bladder wall thickness is normal. Miscellaneous: No inguinal hernias or adenopathy. Retroverted uterus. Bones: No suspicious bony lesions. No vertebral body compression fractures. IMPRESSION: 1. No evidence of acute process in the chest, abdomen, and pelvis. 2. Multiple pulmonary nodules, all 3 mm or less. Please see chart below for follow-up recommendations. Fleischner Society criteria for SOLID lung nodule followup. Nodule size (mm)Low-risk patientHigh-risk patient<6 (single or multiple)No routine followup.Optional CT at 12 months. 6-8 (single or multiple)CT at 6-12 months, then optional CT at 18-24 mo.CT at 6-12 months, then CT at 18-24 months. >8 (single)CT at 3 months, PET-CT, or biopsy. Same as for low-risk pts. >8 (multiple)CT at 3-6 months, then optional CT at 18-24 mo.CT at 3-6 months, then CT at 18-24 months. Fleischner Society criteria for SUB-SOLID lung nodule followup. Solitary pure ground-glass nodules<6 mm (ground glass or part solid)No followup needed. 6 mm or larger (ground glass)CT at 6-12 months to confirm persistence, then CT every 2 years until 5 years.6 mm or larger (part solid)CT at 3-6 months to confirm persistence, then annual CT until 5 years if unchanged and solid component remains <6 mm. Multiple sub-solid nodules<6 mmCT at 3-6 months, then CT consider at 2 & 4 years for high risk patients. [address] at 3-6 months. Subsequent management based on most suspicious lesions. Recommendations do not apply to lung cancer screening, patients with immunosuppression, or patients with known primary cancer. Dictated by: Jae Cole M.D. on 04/17/2022 at 12:54 Approved by: Jae Cole M.D. on 04/17/2022 at 12:55
[2022-04-17 11:50] LABS: Influenza A - CEPHEID Flu A NEGATIVE (NEGATIVE); Influenza B - CEPHEID Flu B NEGATIVE (NEGATIVE); Respiratory Syncytial Virus Negative (Negative)
[2022-04-17 11:51] LABS: COVID-19 CEPHEID 4-PLEX PCR Negative (Negative)
[2022-04-17 11:53] LABS: Add Manual Diff / Slide Review NO; Basophils Absolute Auto 100 /uL (0-100); Basophils Percent Auto 0.8 % (0-2); Eosinophils Absolute Auto 200 /uL (0-450); Eosinophils Percent Auto 2.5 % (2-4); Hematocrit 35.5 % (36-46); Hemoglobin 12.2 g/dL (12.0-16.0); Lymphocytes Absolute Auto 1400 /uL (1100-4500); Lymphocytes Percent Auto 20.6 % (25-40); Mean Corpuscular HGB Conc 34.3 % (30-36); Mean Corpuscular Hemoglobin 30.9 PG (26-34); Monocytes Absolute Auto 500 /uL (0-900); Neutrophils Absolute Auto 4500 /uL (1500-7000); Neutrophils Percent Auto 68.1 % (50-75); Platelet Count 229 X10^3/uL (150-400); Red Blood Cell Count 3.94 X10^6/uL (4.0-5.2); Red Cell Distribution Width 12.1 % (11.6-14.8); White Blood Cell Count 6.6 X10^3/uL (4.5-11.0)
[2022-04-17 11:59] LABS: Prothrombin Time 11.7 SECONDS (10.1-12.7)
[2022-04-17 12:02] LABS: PTT Partial Thromboplastin Tim 28 SECONDS (26-36)
[2022-04-17 12:05] LABS: Alanine Aminotransferase 18 IU/L (<35); Albumin 4.4 g/dL (3.5-5.0); Albumin Globulin Ratio 1.3 (1.0-2.8); Alkaline Phosphatase 47 U/L (38-126); Aspartate Aminotransferase 28 IU/L (14-36); BUN Creatinine Ratio 16.2 (6-22); Bilirubin Total 0.5 mg/dL (0.2-1.3); Blood Urea Nitrogen 11 mg/dL (7-17); Calcium 9.2 mg/dL (8.4-10.2); Carbon Dioxide 29 mmol/L (22-32); Chloride 104 mmol/L (98-107); Creatine Kinase 88 U/L (30-135); Estimated Glomerular Filt Rate > 60 mL/min (>60); Globulin 3.3 g/dL (1.7-4.1); Glucose 87 mg/dL (70-100); HEMOLYSIS < 15 (0-50); Lipase 187 U/L (23-300); Magnesium 1.9 mg/dL (1.6-2.3); Sodium 139 mmol/L (137-145); Total Protein 7.7 g/dL (6.3-8.2)
[2022-04-17 12:07] LABS: Lactate (Lactic Acid) 0.9 mmol/L (0.7-2.1)
[2022-04-17 12:18] LABS: Troponin I 0.015 ng/mL (0.01-0.034)
[2022-04-17 12:23] LABS: Procalcitonin 0.04 ng/mL (<0.5)
[2022-04-17 12:36] LABS: Thyroid Stimulating Hormone 0.894 uIU/mL (0.47-4.68)
--- NOTE | 2022-04-17 13:25 | PC.NURSE ---
Lumps noted in breast per , last week. Cough, fatigue, weight loss, night sweats, since november.
--- NOTE | 2022-04-17 13:44 | CM.SWNOTE ---
FARM HELPER/ED DCP Note FARM HELPER receives consult to assist patient in establishing care with PCP. Patient is 36 y/o female who presents to ED due to concern for breast soreness and pain. It is reported that patient is not currently seeing a PCP, patient has [facility] Medicaid insurance. FARM HELPER meets with patient, it is reported that she was seeing OB Dr. Ross and had a hysterectomy in recent years. Patient endorses preference for female provider. FARM HELPER calls provider line for [facility], it is reported that provider JULIO Samuel is accepting new patients. FARM HELPER schedules establish care/ED f/u appt for patient for Sunday04/25/22 at 11:15 am check in time. Due to patient's presentation to ED and symptoms, clinic RN is requesting that a mammogram be ordered for patient. FARM HELPER provides this information to patient and ED provider who indicate agreement and understanding. Plan: Patient to d/c to home upon medical clearance, patient to f/u with PCP appt on 04/25/22. ELSA Reynolds
[2022-04-17 13:54] VITALS: BP 124/63; PULSE 64; O2SAT 98
== END 2022-04-17 13:56 | disposition home or self-care (01) ==
PROVIDERS: Emergency Provider Emergency Medicine; PCP Family Medicine
DX: R91.1 Solitary pulmonary nodule (principal); R07.9 Chest pain, unspecified; Z20.822 Contact with and (suspected) exposure to COVID-19
CPT/HCPCS: 0241U; 36415; 71045; 71260; 74177; 80053; 82550; 83605; 83690; 83735; 84145; 84443; 84484; 85025; 85610; 85730; 87040; 93005; 99283; 99284; Q9967

== ENCOUNTER 2022-05-06 18:40 | Emergency (ER) | payer OTHER, MEDICAID, SELFPAY ==
[2022-04-17 13:32] VITALS: BMI 19.7
[2022-05-06] VITALS (12 sets, daily range): BP systolic 91–118; BP diastolic 56–73; PULSE 63–78; RESP 14–53; TEMP 36.2–36.9; O2SAT 97–100; BMI 16.9
--- NOTE | 2022-05-06 19:16 | DI.RAD.S_ITS ---
PROCEDURE: XR CHEST 1V INDICATIONS: chest pain TECHNIQUE: One view of the chest was acquired. COMPARISON: [facility], , XR CHEST 1V, 04/17/2022, 10:32. [facility], , CHEST 2 VIEW, 01/28/2009, 21:11. FINDINGS: Surgical changes and devices: None. Lungs and pleura: Lungs are clear. No pleural effusions or pneumothorax. Mediastinum: Mediastinal contours appear normal. Heart size is normal. Bones and chest wall: No suspicious bony lesions. Overlying soft tissues appear unremarkable. IMPRESSION: Normal for age, source of current chest pain symptoms is not seen. Dictated by: Sachin Lo M.D. on 05/06/2022 at 20:01 Approved by: Sachin Lo M.D. on 05/06/2022 at 20:02
[2022-05-06 19:50] LABS: Add Manual Diff / Slide Review NO; Basophils Absolute Auto 0 /uL (0-100); Basophils Percent Auto 0.3 % (0-2); Eosinophils Absolute Auto 0 /uL (0-450); Eosinophils Percent Auto 0.1 % (2-4); Hematocrit 35.7 % (36-46); Hemoglobin 12.1 g/dL (12.0-16.0); Lymphocytes Absolute Auto 500 /uL (1100-4500); Lymphocytes Percent Auto 7.4 % (25-40); Mean Corpuscular Hemoglobin 30.6 PG (26-34); Mean Corpuscular Volume 90.1 fL (80-100); Monocytes Absolute Auto 400 /uL (0-900); Monocytes Percent Auto 6.1 % (3-14); Neutrophils Absolute Auto 6200 /uL (1500-7000); Neutrophils Percent Auto 86.1 % (50-75); Platelet Count 232 X10^3/uL (150-400); Red Blood Cell Count 3.96 X10^6/uL (4.0-5.2); Red Cell Distribution Width 12.2 % (11.6-14.8); White Blood Cell Count 7.2 X10^3/uL (4.5-11.0)
[2022-05-06 19:52] LABS: Influenza A - CEPHEID Flu A NEGATIVE (NEGATIVE); Influenza B - CEPHEID Flu B NEGATIVE (NEGATIVE); Respiratory Syncytial Virus Negative (Negative)
[2022-05-06] MEDS: ACETAMINOPHEN 325 MG TABLET 975 MG PO (19:52)
[2022-05-06] MEDS: SODIUM CHLORIDE 0.9% 1,000 ML 1000 ML IV (19:52)
[2022-05-06 19:56] LABS: COVID-19 CEPHEID 4-PLEX PCR Negative (Negative)
[2022-05-06 19:57] LABS: Prothrombin Time 11.8 SECONDS (10.1-12.7)
[2022-05-06 19:59] LABS: PTT Partial Thromboplastin Tim 27 SECONDS (26-36)
[2022-05-06 20:02] LABS: Alanine Aminotransferase 22 IU/L (<35); Albumin 4.3 g/dL (3.5-5.0); Albumin Globulin Ratio 1.4 (1.0-2.8); Alkaline Phosphatase 46 U/L (38-126); Aspartate Aminotransferase 28 IU/L (14-36); BUN Creatinine Ratio 16.7 (6-22); Bilirubin Total 0.5 mg/dL (0.2-1.3); Blood Urea Nitrogen 12 mg/dL (7-17); Calcium 8.5 mg/dL (8.4-10.2); Carbon Dioxide 24 mmol/L (22-32); Chloride 103 mmol/L (98-107); Creatine Kinase 91 U/L (30-135); Estimated Glomerular Filt Rate > 60 mL/min (>60); Globulin 3.1 g/dL (1.7-4.1); Glucose 147 mg/dL (70-100); HEMOLYSIS < 15 (0-50); Lipase 341 U/L (23-300); Magnesium 1.8 mg/dL (1.6-2.3); Potassium 3.2 mmol/L (3.4-5.1); Sodium 138 mmol/L (137-145); Total Protein 7.4 g/dL (6.3-8.2)
[2022-05-06 20:03] LABS: Lactate (Lactic Acid) 1.5 mmol/L (0.7-2.1)
[2022-05-06 20:14] LABS: Troponin I 0.016 ng/mL (0.01-0.034)
[2022-05-06 20:19] LABS: Procalcitonin 0.14 ng/mL (<0.5)
--- NOTE | 2022-05-06 20:30 | ED.HA ---
HPI - Headache General Chief Complaint: Headache Stated Complaint: headache, back pain, L sided chest pain, body pain Time Seen by Provider: 05/06/22 19:17 Mode of arrival: Ambulatory History of Present Illness HPI Narrative: Patient is a 36-year-old female currently being worked up for bilateral breast lumps found have multiple pulmonary nodules in her last ED visit on April 17 presents today with headache and chest pain. She says he has been having headache for awhile however today it got to be really bad she had to be very dizzy. She denies any light sensitivity or noise sensitivity. She was having some left-sided chest discomfort which was worse whenever she took a breath she felt it was sharp and stabbing in nature it has been there all day it is nonradiating. She denies any nausea or vomiting. She reports that she is been taking Excedrin for her migraines she did not realize that Excedrin had NSAIDs in it. She reports that every time she has an NSAID she gets kidney/UTI infection, but does not have any actual allergic reaction to it. Related Data Previous Rx's Medication Instructions Recorded ondansetron 4 mg disintegrating 4 mg PO QID PRN nausea and 05/18/18 tablet vomiting #14 tabs hydrocodone 5 mg-acetaminophen 325 1 tab PO Q6H PRN pain #10 tabs 04/17/22 mg tablet albuterol sulfate 90 mcg/actuation 1 puff inhalation Q6H PRN Adequate 04/20/22 aerosol inhaler (ProAir HFA) Ventilation #8.5 grams fluticasone propionate 230 2 puff inhalation BID #12 grams 04/25/22 mcg-salmeterol 21 mcg/actuation HFA inhaler (Advair HFA) Allergies Allergy/AdvReac Type Severity Reaction Status Date / Time amoxicillin Allergy Intermediate Rash, Verified 05/06/22 18:50 throat was tingly azithromycin Allergy Intermediate Gastrointestinal Verified 05/06/22 18:50 Upset ciprofloxacin Allergy Intermediate Gastrointestinal Verified 05/06/22 18:50 Upset Penicillins Allergy Intermediate Rash Verified 05/06/22 18:50 hydromorphone Allergy Mild Flushing Verified 05/06/22 18:50 ibuprofen Allergy Mild Kidney Verified 05/06/22 18:50 infection Pertussis Vaccines Allergy Unknown Seizure Verified 05/06/22 18:50 [PERTUSSIS VACCINES] gluten AdvReac Mild Stomach Verified 05/06/22 18:50 pain, nausea, headache nickel AdvReac Mild Irritation/ Verified 05/06/22 18:50 redness Review of Systems Review of Systems ROS Unobtainable: All systems reviewed & are unremarkable except as noted in HPI and below Patient History Medical History Anxiety Asthma Depression Mild persistent asthma Surgical History H/O exploratory laparotomy H/O left knee surgery History of open heart surgery History of surgery S/P laparoscopic supracervical hysterectomy (05/17/18) Social History household members: spouse and children Smoking Status: Former smoker Smoking Status: Former smoker alcohol intake frequency: 0-2 drinks per day Substance Use Type: marijuana Exam Initial Vital Signs Initial Vital Signs: Vital Signs Temperature 98.4 F 05/06/22 18:50 Pulse Rate 70 05/06/22 18:50 Respiratory Rate 20 05/06/22 18:50 Blood Pressure 91/66 05/06/22 18:50 Pulse Oximetry 97 05/06/22 18:50 Oxygen Delivery Method 05/06/22 18:50 GENERAL: Thin 36-year-old female HEENT: Head atraumatic,EOMI, pupils reactive, face symmetric, moist mucous membranes CARDIOVASCULAR: Regular rate and rhythm without murmurs, rubs or gallops. RESPIRATORY: Breath sounds equal bilaterally, no wheezes rales or rhonchi. ABDOMEN: Soft, nontender. Normoactive bowel sounds all 4 quadrants. No guarding or rebound. EXTREMITIES: Normal range of motion, no clubbing or edema. Neurovascularly intact NEUROLOGICAL: Alert and oriented x4. [employer] strength equal bilaterally moving all extremities SKIN: Warm, dry, no laceration, no petechiae, no rashes or lesions. Course Orders Ordered: ED Orders 05/06/22 19:09 Covid-19 + FLU A/B + RSV - PCR Stat 05/06/22 19:16 XR chest 1V Stat EKG-12 Lead Stat 05/06/22 19:40 Complete Blood Count AUTO DIFF Stat Comprehensive Metabolic Panel Stat Lactate (Lactic Acid) Stat Lipase Stat Magnesium Stat Partial Thromboplastin Time Stat Procalcitonin Stat Prothrombin Time INR Stat Troponin & CK Cardiac Panel Stat 05/06/22 20:44 CT head/brain wo con Stat 05/06/22 21:38 Trop I [Troponin I] Stat Discontinued Medications Acetaminophen (Acetaminophen 325 Mg Tablet) 975 mg PO NOW ONE Stop: 05/06/22 19:21 Last Admin: 05/06/22 19:52 Dose: 975 mg Documented By: AMARJIT Sodium Chloride (Normal Saline 0.9%) 1,000 mls @ 1,000 mls/hr IV BOLUS ONE Stop: 05/06/22 20:16 Last Infusion: 05/06/22 21:09 Dose: 0 mls/hr Documented By: Admin: 05/06/22 19:52 Dose: 1,000 mls/hr Documented By: AMARJIT Morphine Sulfate (Morphine 2 Mg/Ml Inj) 2 mg IV NOW ONE Stop: 05/06/22 20:45 Last Admin: 05/06/22 21:09 Dose: 2 mg Documented By: AMARJIT Morphine Sulfate (Morphine 4 Mg/Ml Inj) 4 mg IV NOW ONE Stop: 05/06/22 22:45 Last Admin: 05/06/22 22:56 Dose: 4 mg Documented By: AMARJIT Ondansetron HCl (Ondansetron 4 Mg/2 Ml Inj) 4 mg IV NOW ONE Stop: 05/06/22 20:45 Last Admin: 05/06/22 21:09 Dose: 4 mg Documented By: AMARJIT Vital Signs Vital signs: Vital Signs - 8 hr 05/06/22 18:50 05/06/22 19:45 05/06/22 20:30 Temperature 98.4 F Pulse Rate 70 78 Respiratory Rate 20 19 Blood Pressure 91/66 118/73 118/73 Pulse Oximetry 97 99 Oxygen Delivery Method Room Air Room Air 05/06/22 20:31 05/06/22 21:00 05/06/22 21:17 Temperature Pulse Rate 63 77 Respiratory Rate 22 Blood Pressure 108/73 Pulse Oximetry 100 98 Oxygen Delivery Method Room Air 05/06/22 21:17 05/06/22 21:33 05/06/22 21:46 Temperature Pulse Rate 72 67 65 Respiratory Rate 35 H 53 H 24 Blood Pressure Pulse Oximetry 97 97 97 Oxygen Delivery Method 05/06/22 21:46 05/06/22 22:00 05/06/22 22:00 Temperature Pulse Rate 65 Respiratory Rate 32 H Blood Pressure 101/57 L 104/56 L Pulse Oximetry 97 Oxygen Delivery Method 05/06/22 22:30 05/06/22 22:30 05/06/22 23:00 Temperature Pulse Rate 66 Respiratory Rate 23 Blood Pressure 112/65 111/56 L Pulse Oximetry 97 Oxygen Delivery Method 05/06/22 23:00 05/06/22 23:16 Temperature 97.2 F L Pulse Rate 65 68 Respiratory Rate 22 14 Blood Pressure 111/56 L Pulse Oximetry 97 98 Oxygen Delivery Method Room Air MDM - Headache Lab Data 05/06/22 19:40 05/06/22 19:40 Labs: Lab Results 05/06/22 05/06/22 05/06/22 Range/Units 19:09 19:40 19:40 WBC 7.2 (4.5-11.0) X10^3/uL RBC 3.96 L (4.0-5.2) X10^6/uL Hgb 12.1 (12.0-16.0) g/dL Hct 35.7 L (36-46) % MCV 90.1 (80-100) fL MCH 30.6 (26-34) PG MCHC 34.0 (30-36) % RDW 12.2 (11.6-14.8) % Plt Count 232 (150-400) X10^3/uL Neut % (Auto) 86.1 H (50-75) % Lymph % (Auto) 7.4 L (25-40) % [place] % (Auto) 6.1 (3-14) % Eos % (Auto) 0.1 L (2-4) % Baso % (Auto) 0.3 (0-2) % Neut # (Auto) 6200 (2492-9464) /uL Lymph # (Auto) 500 L (2242-1264) /uL [place] # (Auto) 400 (0-900) /uL Eos # (Auto) 0 (0-450) /uL Baso # (Auto) 0 (0-100) /uL PT 11.8 (10.1-12.7) SECONDS INR 1.0 (0.9-1.3) APTT 27 (26-36) SECONDS Sodium (137-145) mmol/L Potassium (3.4-5.1) mmol/L Chloride (98-107) mmol/L Carbon Dioxide (22-32) mmol/L BUN (7-17) mg/dL Creatinine (0.52-1.04) mg/dL Estimated GFR (>60) mL/min BUN/Creatinine Ratio (6-22) Glucose (70-100) mg/dL Lactate (0.7-2.1) mmol/L Calcium (8.4-10.2) mg/dL Magnesium (1.6-2.3) mg/dL Total Bilirubin (0.2-1.3) mg/dL AST (14-36) IU/L ALT (<35) IU/L Alkaline Phosphatase (38-126) U/L Total Creatine Kinase (30-135) U/L CK-MB (CK-2) CK-MB (CK-2) Rel Index Troponin I (0.01-0.034) ng/mL Total Protein (6.3-8.2) g/dL Albumin (3.5-5.0) g/dL Globulin (1.7-4.1) g/dL Albumin/Globulin Ratio (1.0-2.8) Lipase (23-300) U/L Procalcitonin (<0.5) ng/mL SARS-CoV-2 (PCR) Negative (Negative) Influenza A (RT-PCR) Flu a negative (NEGATIVE) Influenza B (RT-PCR) Flu b negative (NEGATIVE) RSV (PCR) Negative (Negative) 05/06/22 05/06/22 05/06/22 Range/Units 19:40 19:40 19:40 WBC (4.5-11.0) X10^3/uL RBC (4.0-5.2) X10^6/uL Hgb (12.0-16.0) g/dL Hct (36-46) % MCV (80-100) fL MCH (26-34) PG MCHC (30-36) % RDW (11.6-14.8) % Plt Count (150-400) X10^3/uL Neut % (Auto) (50-75) % Lymph % (Auto) (25-40) % [place] % (Auto) (3-14) % Eos % (Auto) (2-4) % Baso % (Auto) (0-2) % Neut # (Auto) (9711-4411) /uL Lymph # (Auto) (7344-7752) /uL [place] # (Auto) (0-900) /uL Eos # (Auto) (0-450) /uL Baso # (Auto) (0-100) /uL PT (10.1-12.7) SECONDS INR (0.9-1.3) APTT (26-36) SECONDS Sodium 138 (137-145) mmol/L Potassium 3.2 L (3.4-5.1) mmol/L Chloride 103 (98-107) mmol/L Carbon Dioxide 24 (22-32) mmol/L BUN 12 (7-17) mg/dL Creatinine 0.72 (0.52-1.04) mg/dL Estimated GFR > 60 (>60) mL/min BUN/Creatinine Ratio 16.7 (6-22) Glucose 147 H (70-100) mg/dL Lactate 1.5 (0.7-2.1) mmol/L Calcium 8.5 (8.4-10.2) mg/dL Magnesium 1.8 (1.6-2.3) mg/dL Total Bilirubin 0.5 (0.2-1.3) mg/dL AST 28 (14-36) IU/L ALT 22 (<35) IU/L Alkaline Phosphatase 46 (38-126) U/L Total Creatine Kinase 91 (30-135) U/L CK-MB (CK-2) TNP CK-MB (CK-2) Rel Index TNP Troponin I 0.016 (0.01-0.034) ng/mL Total Protein 7.4 (6.3-8.2) g/dL Albumin 4.3 (3.5-5.0) g/dL Globulin 3.1 (1.7-4.1) g/dL Albumin/Globulin Ratio 1.4 (1.0-2.8) Lipase 341 H (23-300) U/L Procalcitonin 0.14 (<0.5) ng/mL SARS-CoV-2 (PCR) (Negative) Influenza A (RT-PCR) (NEGATIVE) Influenza B (RT-PCR) (NEGATIVE) RSV (PCR) (Negative) 05/06/22 Range/Units 21:38 WBC (4.5-11.0) X10^3/uL RBC (4.0-5.2) X10^6/uL Hgb (12.0-16.0) g/dL Hct (36-46) % MCV (80-100) fL MCH (26-34) PG MCHC (30-36) % RDW (11.6-14.8) % Plt Count (150-400) X10^3/uL Neut % (Auto) (50-75) % Lymph % (Auto) (25-40) % [place] % (Auto) (3-14) % Eos % (Auto) (2-4) % Baso % (Auto) (0-2) % Neut # (Auto) (1617-1528) /uL Lymph # (Auto) (4326-0474) /uL [place] # (Auto) (0-900) /uL Eos # (Auto) (0-450) /uL Baso # (Auto) (0-100) /uL PT (10.1-12.7) SECONDS INR (0.9-1.3) APTT (26-36) SECONDS Sodium (137-145) mmol/L Potassium (3.4-5.1) mmol/L Chloride (98-107) mmol/L Carbon Dioxide (22-32) mmol/L BUN (7-17) mg/dL Creatinine (0.52-1.04) mg/dL Estimated GFR (>60) mL/min BUN/Creatinine Ratio (6-22) Glucose (70-100) mg/dL Lactate (0.7-2.1) mmol/L Calcium (8.4-10.2) mg/dL Magnesium (1.6-2.3) mg/dL Total Bilirubin (0.2-1.3) mg/dL AST (14-36) IU/L ALT (<35) IU/L Alkaline Phosphatase (38-126) U/L Total Creatine Kinase (30-135) U/L CK-MB (CK-2) CK-MB (CK-2) Rel Index Troponin I 0.018 (0.01-0.034) ng/mL Total Protein (6.3-8.2) g/dL Albumin (3.5-5.0) g/dL Globulin (1.7-4.1) g/dL Albumin/Globulin Ratio (1.0-2.8) Lipase (23-300) U/L Procalcitonin (<0.5) ng/mL SARS-CoV-2 (PCR) (Negative) Influenza A (RT-PCR) (NEGATIVE) Influenza B (RT-PCR) (NEGATIVE) RSV (PCR) (Negative) Urine Dip Bedside Urine Glucose Negative Bedside Urine Bilirubin - Negative Bedside Urine Ketone - Negative Urine Specific [place] 1.030 Bedside Urine Occult Blood - Negative Bedside Urine pH 6.5 Bedside Urine Protein - Negative Bedside Urine Urobilinogen - Negative Bedside Urine Nitrite - Negative Bedside Urine Leukocytes - Negative Esterase Imaging Data CT scan - head: Radiologist's Impression: CT Scan Report Signed Patient: Soas Roberts MR#: [id number] : 1985 Acct:[id number] Age/Sex: 36 / F Date of Service: 05/06/22 Loc: ED Accession Number: [id number] ?? Procedure: CT head/brain wo con Ordering Provider: Veronica Stephens D.O. PROCEDURE:? CT HEAD/BRAIN WO CON ? INDICATIONS:? severe headache ? TECHNIQUE:? Noncontrast 4.5 mm thick angled axial sections acquired from the foramen magnum to the vertex, with coronal and sagittal reformats.? For radiation dose reduction, the following was used:? automated exposure control, adjustment of mA and/or kV according to patient size.? ? COMPARISON:? None. ? FINDINGS:? Image quality:? Excellent.? ? CSF spaces:? Basal cisterns are patent.? No extra-axial fluid collections.? Ventricles are normal in size and shape.? ? Brain:? No midline shift.? No intracranial masses or hemorrhage.? Mohr-white matter interface is normal.? ? Skull and face:? Calvarium and visualized facial bones are intact, without suspicious lesions.? ? Sinuses:? Visualized sinuses and mastoids are clear.? ? IMPRESSION:? Normal for age, source of headache is not found. ? ? Dictated by: Sachin Lo M.D. on 05/06/2022 at 21:23 ? ? Approved by: Sachin Lo M.D. on 05/06/2022 at 21:23 ? Chest x-ray: Radiologist's Impression: Signed Patient: Sosa Roberts MR#: [id number] : 1985 Acct:[id number] Age/Sex: 36 / F Date of Service: 05/06/22 Loc: ED Accession Number: [id number] ?? Procedure: XR chest 1V Ordering Provider: Veronica Stephens D.O. PROCEDURE:? XR CHEST 1V ? INDICATIONS:? chest pain ? TECHNIQUE:? One view of the chest was acquired.? ? COMPARISON:? [facility], CR, XR CHEST 1V, 04/17/2022, 10:32.? [facility], , CHEST 2 VIEW, 01/28/2009, 21:11. ? FINDINGS:? ? Surgical changes and devices:? None.? ? Lungs and pleura:? Lungs are clear.? No pleural effusions or pneumothorax.? ? Mediastinum:? Mediastinal contours appear normal.? Heart size is normal.? ? Bones and chest wall:? No suspicious bony lesions.? Overlying soft tissues appear unremarkable.? ? IMPRESSION:? Normal for age, source of current chest pain symptoms is not seen. ? ? Dictated by: Sachin Lo M.D. on 05/06/2022 at 20:01 ECG Data Interpretation: EKG 1. Sinus rhythm rate 65 [place] interval 124 QRS 94 QTC 397 biphasic T-wave noted in V3 with significant T-wave inversion in V4 and V5 and V6 without ST elevation or depressions certainly more prominent than previous EKGs EKG 2. Sinus rhythm with persistent biphasic T-waves in V2 and V3 with T-wave inversion V4 V5 V6 definitely new no ST changes EKG 3. Significant improvement mild T-wave inversion in V2 slight T-wave inversion in V3 no real significant or prominent T-wave inversions in V for V5 and V6 possibly due to new lead placement MDM Narrative Medical decision making narrative: Patient 36-year-old female currently being worked up for breast cancer she is got pulmonary nodule she has a mammogram scheduled for May 15 and an ultrasound at the same time. She presents today with some dizziness headache and chest discomfort. EKG initially looked quite concerning with some significant T-wave inversions however a different person went in move the leads to inappropriate place a now T-wave inversion has resolved. Her chest pain is constant all day sharp stabbing in nature worse with breathing not consistent with acute coronary syndrome. She is 2- troponins. She is having worst headache of her life she is neurologically intact. Head CT is negative. He is given Tylenol Zofran fluids and morphine. The morphine started wearing but did help. She seemed to tolerate it pretty well. At this time she is feeling better. Electrolyte slept show that she is mildly hypokalemic with a potassium of 3.2 no other abnormalities. Lactate procalcitonin are negative. Chest x-ray did not show any abnormalities. Has good outpatient follow-up, and a supportive partner. Discharge Plan Departure Patient Disposition: Home Clinical Impression: Migraine Instructions: DI for Migraine Activity Restrictions/Additional Instructions: *You have been diagnosed with migraine headaches *What to do: At this time go home rest stay hydrated *Continue to take medications as directed *Follow up with your primary care provider in 2-3 days or call [phone] *Return to ER if you should have worsening headache numbness tingling weakness or any new, worsening or concerning symptoms Prescriptions: No Action albuterol sulfate [ProAir HFA] 90 mcg/actuation HFA aerosol inhaler 1 puff INHALATION Q6H PRN (Reason: Adequate Ventilation) Qty: 8.5 0RF Advair HFA 230-21 mcg/actuation HFA aerosol inhaler 2 puff inhalation BID Qty: 12 2RF ondansetron 4 mg tablet,disintegrating 4 mg PO QID PRN (Reason: nausea and vomiting) Qty: 14 2RF hydrocodone-acetaminophen 5-325 mg tablet 1 tab PO Q6H PRN (Reason: pain) Qty: 10 0RF Referrals: German Kaye ARNP [Primary Care Provider] - Stand Alone Forms: Patient Portal/API
--- NOTE | 2022-05-06 20:44 | DI.CT.S_ITS ---
PROCEDURE: CT HEAD/BRAIN WO CON INDICATIONS: severe headache TECHNIQUE: Noncontrast 4.5 mm thick angled axial sections acquired from the foramen magnum to the vertex, with coronal and sagittal reformats. For radiation dose reduction, the following was used: automated exposure control, adjustment of mA and/or kV according to patient size. COMPARISON: None. FINDINGS: Image quality: Excellent. CSF spaces: Basal cisterns are patent. No extra-axial fluid collections. Ventricles are normal in size and shape. Brain: No midline shift. No intracranial masses or hemorrhage. Mohr-white matter interface is normal. Skull and face: Calvarium and visualized facial bones are intact, without suspicious lesions. Sinuses: Visualized sinuses and mastoids are clear. IMPRESSION: Normal for age, source of headache is not found. Dictated by: Sachin Lo M.D. on 05/06/2022 at 21:23 Approved by: Sachin Lo M.D. on 05/06/2022 at 21:23
[2022-05-06] MEDS: ONDANSETRON 4 MG/2 ML INJ IV (21:09)
[2022-05-06] MEDS: MORPHINE 2 MG/ML INJ IV (21:09)
[2022-05-06 22:23] LABS: Troponin I 0.018 ng/mL (0.01-0.034)
[2022-05-06] MEDS: MORPHINE 4 MG/ML INJ IV (22:56)
== END 2022-05-06 23:17 | disposition home or self-care (01) ==
PROVIDERS: Emergency Provider Emergency Medicine; PCP Registered Nurse Diabetes Educator
DX: G43.909 Migraine, unspecified, not intractable, without status migrainosus (principal); R07.9 Chest pain, unspecified; E87.6 Hypokalemia; Z20.822 Contact with and (suspected) exposure to COVID-19
CPT/HCPCS: 0241U; 36415; 70450; 71045; 80053; 81003; 82550; 83605; 83690; 83735; 84145; 84484; 85025; 85610; 85730; 93005; 93010; 96361; 96374; 96375; 96376; 99284; J2270; J2405

== ENCOUNTER → 2022-05-15 12:04 | Outpatient (CLI) | payer OTHER, MEDICAID, SELFPAY ==
[2022-04-17 13:32] VITALS: BMI 19.7
--- NOTE | 2022-05-15 12:05 | DI.US.S_ITS ---
PROCEDURE: US BREAST LT LIMITED COMPARISON: None. INDICATIONS: lymph nodes palpated in both breasts, bilateral breast lumps FINDINGS: IMPRESSION: Dictated by: Gregory Kang M.D. on 05/17/2022 at 16:02 Approved by: Gregory Kang M.D. on 05/17/2022 at 16:08
--- NOTE | 2022-05-15 12:05 | DI.US.S_ITS ---
ULTRASOUND OF RIGHT BREAST: 05/15/2022 CLINICAL: Palpable right breast lump by physician and focal pain. Comparison is made to exam dated: 05/15/2022 mammogram - [facility]. Real-time and Doppler ultrasound of the right breast were performed. There is a benign 0.5 cm x 0.4 cm x 0.2 cm round cyst in the right breast at 12 o'clock posterior depth 3 cm from the nipple. This round cyst is anechoic. No abnormality which corresponds with the area of pain is identified. IMPRESSION: BENIGN There is no sonographic evidence of malignancy. The 0.5 cm x 0.4 cm x 0.2 cm round cyst in the right breast is consistent with a simple cyst and is benign. There are no abnormalities seen in the right breast to correspond with the areas of clinical concern at 1, 2, 3, 6, 7, 8, 9, 10, 11, and 12 o'clock which is consistent with normal fibroglandular tissue. Recommend annual mammogram beginning at age 40 or per ACR guidelines. This exam was interpreted at Station ID: [id number]. Electronically Signed By: Gregory Kang M.D. acr/:05/17/2022 16:10:11 letter sent: Normal Exam Ultrasound BI-RADS: 2 Benign
--- NOTE | 2022-05-15 12:05 | DI.MG.S_ITS ---
BILATERAL DIGITAL DIAGNOSTIC MAMMOGRAM 3D/2D: 05/15/2022 CLINICAL: Baseline Bilateral breast lumps. No prior exams were available for comparison. Both breasts are extremely dense, which lowers the sensitivity of mammography (category d />75% glandular tissue). No significant masses, calcifications, or other findings are seen in either breast. No abnormality which corresponds with the area of pain is identified. IMPRESSION: INCOMPLETE: NEEDS ADDITIONAL IMAGING EVALUATION There are no abnormalities seen in the right breast to correspond with the areas of clinical concern, pain, and redness at 1, 2, 3, 6, 7, 8, 9, 10, 11, and 12 o'clock, however, ultrasound is recommended. There are no abnormalities seen in the left breast to correspond with the areas of clinical concern, pain, and redness at 1, 2, 3, 9, 10, 11, and 12 o'clock, however, ultrasound is recommended. Based on the Tyrer Cuzick model (a risk assessment model) the patient's lifetime risk is 7.0% and her 10 year risk is 0.6%. According to the ACR, ACS, and NCCN guidelines, an annual breast MRI exam along with mammogram is recommended if the patient's lifetime risk is 20% or greater. This exam was interpreted at Station ID: [id number]. NOTE: For mammograms, a report in lay terms will be sent to the patient. Approximately 15% of breast malignancies will not be visualized mammographically. In the management of a palpable breast mass, a negative mammogram must not discourage biopsy of a clinically suspicious lesion. Electronically Signed By: Gregory Kang M.D. acr/:05/17/2022 16:09:22 ACR BI-RADS Category 0: Incomplete 3340F
--- NOTE | 2022-05-15 13:10 | DI.US.S_ITS ---
Procedure: US breast LT limited ULTRASOUND OF LEFT BREAST: 05/15/2022 CLINICAL: Palpable left breast lump by physician and focal pain. Comparison is made to exam dated: 05/15/2022 mammogram - [facility]. Doppler ultrasound o f the left breast was performed. Mohr scale images of the real-time examination were reviewed. There is a benign 0.4 cm x 0.8 cm x 0.1 cm normal lymph node in the left breast at 12 o'clock posterior depth 3 cm from the nipple. IMPRESSION: BENIGN There is no sonographic evidence of malignancy. The 0.4 cm x 0.8 cm x 0.1 cm normal lymph node in the left breast is benign. There are no abnormalities seen in the left breast to correspond with the areas of clinical concern and pain at 1, 2, 3, 9, 10, 11, and 12 o'clock. Recommend annual mammogram beginning at age 40 or per ACR guidelines. This exam was interpreted at Station ID: [id number]. Electronically Signed By: Gregory Kang M.D. acr/:05/17/2022 16:09:54 letter sent: Normal Exam Continued Report - Page 2 of 2 Patient Name: MARIBEL BLOOM date: 1985 Sex: F Attending Physician: Vargas Indications: Date: 05/17/2022 16:09 At the request of: ARTURO NAQVI Procedure: US breast LT limited Ultrasound BI-RADS: 2 Benign
== END ==
PROVIDERS: PCP Registered Nurse Diabetes Educator; Referring Provider Registered Nurse Diabetes Educator; Visit Provider Registered Nurse Diabetes Educator
DX: N63.20 Unspecified lump in the left breast, unspecified quadrant (principal); N60.01 Solitary cyst of right breast; N64.4 Mastodynia; R92.2 Inconclusive mammogram; R93.89 Abnormal findings on diagnostic imaging of other specified body structures
CPT/HCPCS: 76642; 77066; G0279

== ENCOUNTER → 2024-11-02 11:13 | Outpatient (CLI) | payer OTHER, SELFPAY ==
[2024-05-27 13:30] VITALS: BMI 19.7
--- NOTE | 2024-11-02 11:18 | DI.MRI.S_ITS ---
PROCEDURE: MR KNEE LT WO CON INDICATIONS: r/o soft tissue injury TECHNIQUE: Noncontrast sagittal PD fast spin echo and T2 fast spin echo with fat saturation, sagittal 3-D FLASH with fat saturation; coronal T1 spin echo and PD fast spin echo with fat saturation, and axial PD fast spin echo with fat saturation through the knee. COMPARISON: [facility], MR, MR KNEE LT WO CON, 10/27/2021, 17:58. FINDINGS: Image quality: Excellent. Menisci: The medial and lateral menisci demonstrate normal morphology and internal signal. The meniscal root ligaments appear intact. Cruciate ligaments: The anterior and posterior cruciate ligaments appear intact. Medial structures: The medial collateral ligament appears intact. Visualized portions of the pes anserinus tendons appear normal. No abnormal bursal fluid. Lateral structures: The lateral collateral ligament, long and short heads of the biceps femoris tendon appear intact. The popliteus tendon appears normal. Iliotibial band appears normal. Anterior structures: The quadriceps and patellar tendons appear intact. Patellar alignment is normal. No femoral trochlear dysplasia or ventral trochlear prominence. Shallow trochlear groove. Mild edema in the superolateral aspect the infrapatellar fat pad. Bones and cartilage: No bone marrow contusions or fractures. Mild articular cartilage loss overlies the lateral patellar facet inferiorly. Joint space: There is physiologic knee joint fluid. No Solano's cyst. Normal appearing synovial plicae are incidentally noted. Decreased ganglion cyst at the posterior aspect of central femoral trochlea measuring 18 mm transverse by 13 mm anteroposterior (previously 19 mm transverse by 18 mm anteroposterior). IMPRESSION: 1. No internal derangement. 2. Decreased ganglion cysts adjacent to the distal femur. 3. Findings consistent with lateral patellofemoral friction syndrome, as before. Dictated by: Sarah Mckay M.D. on 11/03/2024 at 12:07 Approved by: Sarah Mckay M.D. on 11/03/2024 at 12:09
== END ==
PROVIDERS: PCP Registered Nurse Diabetes Educator; Referring Provider Orthopaedic Surgery; Visit Provider Orthopaedic Surgery
DX: M25.562 Pain in left knee (principal); M67.462 Ganglion, left knee
CPT/HCPCS: 73721